=== PATIENT | female | born 1980 | race Caucasian/White ===

== ENCOUNTER 2017-12-16 15:19 | Emergency (ER) | payer OTHER, SELFPAY ==
[2017-12-16 15:48] VITALS: BP 130/76; PULSE 78; RESP 20; TEMP 36.9; O2SAT 100; BMI 29.9
--- NOTE | 2017-12-16 16:56 | HMH.EDUTC ---
[facility] [place] Dis[place] Clinical Impression: History of environmental allergies Contact dermatitis Qualifiers: Contact dermatitis type: allergic Contact dermatitis trigger: unspecified trigger Qualified Code(s): L23.9 - Allergic contact dermatitis, unspecified cause Disposition: Home, Self-Care Condition on Discharge: Good Instructions: DI for General Allergic Reactions, DI for Contact Dermatitis Additional Instructions: Zyrtec 10mg instead of allergra. If no improvement within 1-2 hours, can take a second one. Use first and if still no improvement, then use benadryl. Zyrtec offers for constant relief. REMEMBER you had 25mg benadryl injection in clinic Start steroids tomorrow since you were given injection of dexamethasone 8mg here in clinic. Cool compresses/cool shower helps w/ itching Prescriptions: predniSONE [Prednisone 10mg Tab Dose-Pack] 10 mg PO UD DOSE PK #1 pack Referrals: Nicola Lopez [Referring] - (return to ER/911 for any difficulty breathing or swallowing. Follow up with Dr. Lopez for new, worsening or reoccurring symptoms. If you can't get in to him or primary care, return to [facility].) Forms: Work/School Release Time of Disposition: 17:23 Medical Decision Making Vital Signs: 12/16/17 15:48 Temperature 98.5 F Temperature Source Temporal Artery Scan Pulse Rate [Right Brachial] 78 Respiratory Rate 20 Blood Pressure [Right Arm] 130/76 Blood Pressure Mean [Right Arm] 94 Blood Pressure Source [Right Arm] Automatic Cuff Blood Pressure Position [Right Arm] Sitting 02 Sat by Pulse Oximetry 100 Oxygen Delivery Method Room Air - Jeison Inquiry Pt receiving controlled substance: No [facility] [place] HPI - General Stated complaint: Rash Time Seen by Provider: 12/16/17 16:50 Mode of Arrival: Ambulatory Source of Information: Patient Limitations: No Limitations Description of Symptoms (Recalled from Triage Doc. 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 Hx of environmental allergies. Last saw art studio teacher randy/in the last 3 months. Xiomara Trevor daily helps. Reports she was NOT tested for food allergies at that time. As a child, hx of intermittent allergies to some fruits. Only new food she ate was meatballs. No hx of problems with meat in the past. Otherwise reports racking her brain and no new medications, contacts, toiletries, detergents, cosmetics, etc at home. Wonders if bathroom soap at work was new today because did smell different. 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 Denies difficulty breathing or swallowing. [place] lightheaded initially but not now. Longer she has waiting, more rash and more itchy. No treatment. hx of benadryl knocks me out so wanted to be sure spouse arrived to drive her home (he did while I was in room). - Related Data Previous Rx's Medication Instructions Recorded predniSONE [Prednisone 10mg Tab 10 mg PO UD DOSE PK #1 pack 12/16/17 Dose-Pack] Allergies Allergy/AdvReac Type Severity Reaction Status Date / Time Penicillins [PENICILLINS] Allergy Unknown Unverified 10/26/17 15:39 - Worker's Comp Is this a Worker's Comp case?: No [facility] History I have reviewed the patient's past medical history: Yes Medical History: Reports:: Diabetes Mellitus Type 2 Denies:: Asthma, Hypertension Other Surgeries: Yes: Other (PCOS) - *Social History Smoking Status: Never smoker Alcohol Intake: never - Psychiatric History Expresses thoughts of harming self/others: None Suicide Plan Description: No Plan ROS Obtained: Yes Systems reviewed as appropriate & no additional complaints - Co
--- NOTE | 2017-12-16 17:05 | ED_ITS ---
[facility] [place]ression: History of environmental allergies Contact dermatitis Qualifiers: Contact dermatitis type: allergic Contact dermatitis trigger: unspecified trigger Qualified Code(s): L23.9 - Allergic contact dermatitis, unspecified cause Disposition: Home, Self-Care Condition on Discharge: Good Instructions: DI for General Allergic Reactions, DI for Contact Dermatitis Additional Instructions: Zyrtec 10mg instead of allergra. If no improvement within 1-2 hours, can take a second one. Use first and if still no improvement, then use benadryl. Zyrtec offers for constant relief. REMEMBER you had 25mg benadryl injection in clinic Start steroids tomorrow since you were given injection of dexamethasone 8mg here in clinic. Cool compresses/cool shower helps w/ itching Prescriptions: predniSONE [Prednisone 10mg Tab Dose-Pack] 10 mg PO UD DOSE PK #1 pack Referrals: Nicola Lopez [Referring] - (return to ER/911 for any difficulty breathing or swallowing. Follow up with Dr. Lopez for new, worsening or reoccurring symptoms. If you can't get in to him or primary care, return to [facility] [[email or web address] Forms: Work/School Release Time of Disposition: 17:23 Medical Decision Making Vital Signs: 12/16/17 15:48 Temperature 98.5 F Temperature Source Temporal Artery Scan Pulse Rate [Right Brachial] 78 Respiratory Rate 20 Blood Pressure [Right Arm] 130/76 Blood Pressure Mean [Right Arm] 94 Blood Pressure Source [Right Arm] Automatic Cuff Blood Pressure Position [Right Arm] Sitting 02 Sat by Pulse Oximetry 100 Oxygen Delivery Method Room Air - Jeison Inquiry Pt receiving controlled substance: No [facility] [place] - General Stated complaint: Rash Time Seen by Provider: 12/16/17 16:50 Mode of Arrival: Ambulatory Source of Information: Patient Limitations: No Limitations Description of Symptoms (Recalled from Triage Doc. 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 Hx of environmental allergies. 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 Xiomara Trevor daily helps. Reports she was NOT tested for food allergies at that time. As a child, hx of intermittent allergies to some fruits. Only new food she ate was meatballs. No hx of problems with meat in the past. Otherwise reports racking her brain and no new medications, contacts, toiletries, detergents, cosmetics, etc at home. Wonders if bathroom soap at work was new today because did smell different. 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 Denies difficulty breathing or swallowing. [place] lightheaded initially but not now. Longer she has waiting, more rash and more itchy. No treatment. hx of benadryl knocks me out so wanted to be sure spouse arrived to drive her home (he did while I was in room). - Related Data Previous Rx's Medication Instructions Recorded predniSONE [Prednisone 10mg Tab 10 mg PO UD DOSE PK #1 pack 12/16/17 Dose-Pack] Allergies Allergy/AdvReac Type Severity Reaction Status Date / Time Penicillins [PENICILLINS] Allergy Unknown Unverified 10/26/17 1
[2017-12-16 17:27] VITALS: BP 127/71; PULSE 76; RESP 20; TEMP 37.1; O2SAT 100
== END 2017-12-16 17:28 | disposition home or self-care (01) ==
PROVIDERS: Emergency Provider Nurse Practitioner Family; PCP Internal Medicine Adolescent Medicine
DX: L23.9 Allergic contact dermatitis, unspecified cause (principal); E11.9 Type 2 diabetes mellitus without complications; Z91.09 Other allergy status, other than to drugs and biological substances
CPT/HCPCS: 96372; 99201

== ENCOUNTER → 2018-02-23 12:57 | Outpatient (CLI) | payer OTHER, SELFPAY ==
--- NOTE | 2018-02-23 12:58 | US_ITS ---
US transvaginal HISTORY: Dysfunctional uterine bleeding, heavy cycles, polycystic ovarian syndrome, endometriosis with fibroid ITS.REASON: DUB ORDERING PHYSICIAN: David George MD PATIENT AGE: 37 years COMPARISON: 10/21/2016 FINDINGS: The uterus is enlarged at 10 x 4.5 x 5.6 cm area combined endometrial thickness is 7 mm. There is a 1.2 x 1 7 m area of decreased echogenicity along the posterior aspect of the body the uterus and may be due to a small fibroid. The left ovary is 4.9 x 4.3 cm and contains a complex 2 cm cystic area with other smaller cysts noted. The right ovary is 4.6 x 3.3 cm again multiple small follicles. IMPRESSION: 1. Mildly enlarged uterus. No change posterior fibroid. 2. Mildly enlarged ovaries with 2 cm complex cyst of the left ovary and other bilateral ovarian follicles
== END ==
PROVIDERS: PCP Internal Medicine Adolescent Medicine; Referring Provider Obstetrics & Gynecology; Visit Provider Obstetrics & Gynecology
DX: N93.8 Other specified abnormal uterine and vaginal bleeding (principal)
CPT/HCPCS: 76830

== ENCOUNTER 2019-02-08 17:30 | Outpatient (RCR) | payer OTHER, SELFPAY ==
--- NOTE | 2019-01-17 18:03 | HMH.PTOPEV ---
PT Outpatient Evaluation Rehab PT Outpatient Evaluation Start: 01/17/19 17:50 Freq: Status: Active Protocol: Document 01/17/19 17:51 LILLIEOMER (Rec: 01/17/19 18:03 AYLA [id number]) Electronically Signed By Castro Cardenas, PT 01/17/19 17:51 Outpatient Therapy Subjective History Subjective History This is the initial Physical Therapy evaluation for Ana Reynolds. Pt is a 38 y/o female referred to PT for c/o thoracolumbar pain. Pt rpeorts pain began insidiously ~ 2 years ago, but is usually intermittent. Pt rpeorts this bout began ~ 2 weeks ago and has not eased up. Chief Complaint Pain Stiff Symptom Type Ache Throb Burning Symptoms Relieved By Activity Symptoms Aggravated By Sitting Prior Functional Limitations None Current Functional Limitations Sitting Recreation Activity Symptom Description Constant but Variable Level of pain today (0-10) 3 Pain scale - at its best (0-10) 0 Pain scale - at its worst (0-10) 5 Lumbopelvic Eval Posture Thoracic Spine Posture Standing Position Increased Kyphosis Lumbar Spine Posture Standing Position Flattened Assistive device Assistive Devices None / NA Palapation tenderness bilateral thoracic spinal tenderness Yes lumbar spinal tenderness Yes paraspinal tenderness Yes buttock tenderness No tenderness over symphysis pubis No Lumbar/Sacral Palpation Findings Tenderness Muscle Guarding Accessory Movement T-spine Vertebrae Accessory Movements Central P/A [place] that Elicit Symptoms T10 bilateral T11 bilateral T12 bilateral L3 bilateral L4 bilateral L5 bilateral Range of Motion Lumbar Spine ROM Reason Not Measured Within Functional Limits Special Tests Lumbar Spine Screen Negative Forward Bending Test- Standing Negative Left Negative Right Forward Bending Test- Sitting Negative Left Negative Right Sciatic Nerve Tension Test Negative Left Negative Right Unilateral Straight Leg Raise (Lasegue) Negative Left Test Negative Right Outpatient Therapy Assessment Impairment
== END 2019-02-08 17:35 | disposition home or self-care (01) ==
LOC: PT 17:30
PROVIDERS: Visit Provider Internal Medicine Adolescent Medicine
DX: M54.5 Low back pain (principal)
CPT/HCPCS: 97110; 97140; 97163

== ENCOUNTER → 2019-03-17 08:01 | Outpatient (CLI) | payer OTHER, SELFPAY ==
--- NOTE | 2019-03-17 08:03 | CT_ITS ---
CT abdomen pelvis wo con CLINICAL INDICATION: Right flank pain, hematuria ITS.REASON: RT FLANK PAIN, HEMATURIA ORDERING PHYSICIAN: Joaquin Arriaga MD PATIENT AGE: 38 years COMPARISON: None TECHNIQUE: Axial images obtained with sagittal and coronal reformats. All CT scans at the facility use one or more dose reduction, viz: automated exposure control, ma/kV adjustment per patient size (including targeted exams where dose is matched to indication, i.e. head), or iterative reconstruction technique. PROCEDURE: Oral Contrast: None IV Contrast: None . FINDINGS: Lower thorax: No acute finding . Calcified granuloma right lung base The liver, gallbladder, spleen, adrenal glands, pancreas, and kidneys have an unremarkable appearance. No ureteral or renal calculi. No hydronephrosis. Prior appendectomy. No intestinal obstruction or free air. There is mild pancreatic feces. No pelvic mass abnormal fluid collection or focal inflammatory change. Scattered colonic diverticula without diverticulitis. No acute bony findings. IMPRESSION: 1. No acute finding. 2. Mild amount of retained colonic feces 3. Colonic diverticulosis without diverticulitis
== END ==
PROVIDERS: PCP Internal Medicine Adolescent Medicine; Visit Provider Internal Medicine Adolescent Medicine
DX: R10.9 Unspecified abdominal pain (principal); R31.9 Hematuria, unspecified
CPT/HCPCS: 74176

== ENCOUNTER → 2019-08-29 17:25 | Outpatient (CLI) | payer OTHER, SELFPAY ==
--- NOTE | 2019-08-29 17:26 | MM_ITS ---
PROCEDURE: MM DIG SCREENING MAMM BI W/CAD CLINICAL INDICATION: Routine Screening Mammogram There is a history of breast cancer patient's maternal grandmother and maternal great grandmother. COMPARISON: DMDXUR DIG MAMM-DX UNI-RT from 09/04/2014 DMSB DIG MAMM-SCREEN STEPHANIE W/CAD from 07/26/2017 DMDXUAVL DIG MAMM-DX UNI A/VWS-LT W/CAD from 08/05/2017 TECHNIQUE: Standard CC and MLO images were obtained. R2 CAD reviewed. FINDINGS: Prominent somewhat heterogenic fibroglandular densities are seen in both breasts. Findings are most prominent upper outer quadrants. There is no new or suspicious lesion in either breast and no suspicious microcalcifications. IMPRESSION: Moderate breast density with no suspicious lesions seen BI-RAD Category: 1 Negative FOLLOW-UP: 1YR 1 Year Follow-up (A letter has been sent to the patient regarding results of the study.) Dictated by: Dr. Jefferson Luna MD 09/01/2019 15:[address] Jefferson Luna MD in [place] 09/01/2019 15:35
== END ==
PROVIDERS: PCP Internal Medicine Adolescent Medicine; Visit Provider Obstetrics & Gynecology
DX: Z12.31 Encounter for screening mammogram for malignant neoplasm of breast (principal)
CPT/HCPCS: 77067

== ENCOUNTER → 2020-02-09 15:46 | Outpatient (CLI) | payer OTHER, SELFPAY | PROVIDERS: Visit Provider Internal Medicine Adolescent Medicine | DX: J02.9 Acute pharyngitis, unspecified (principal) | CPT/HCPCS: 87070; 87077 ==

== ENCOUNTER 2020-02-21 11:06 | Emergency (ER) | payer OTHER, SELFPAY ==
[2020-02-21 11:07] VITALS: BP 157/83; PULSE 99; RESP 20; TEMP 37; O2SAT 99; BMI 30.9
--- NOTE | 2020-02-21 11:37 | HMH.EDUTC ---
[facility] [place] Clinical Impression: Chronic pharyngitis Disposition: Home, Self-Care Condition on Discharge: Good Instructions: Sore Throat, DI for Pharyngitis/Tonsillopharyngitis -- Adult Additional Instructions: Drink plenty of fluids. Take tylenol or ibuprofen for pain or fever. Take the medications as directed. Follow up with your regular doctor. GO TO THE ER FOR ANY WORSENING SYMPTOMS Prescriptions: methylPREDNISolone [Medrol] 4 mg PO DIRECTED 6 Days #21 tab.[email or web address] Transmission Status: Received by [email or web address] Cefdinir [Omnicef 300mg Capsule] 300 mg PO BID #20 cap Transmission Status: Received by [email or web address] Referrals: Joaquin Arriaga MD [Primary Care Provider] - Parminder Dorsey MD [Staff Physician] - Time of Disposition: 11:49 Medical Decision Making - Medical Records Medical records reviewed: No: I reviewed the patient's medical records. - Jeison Inquiry Pt receiving controlled substance: No Vital Signs: 02/21/20 11:07 02/21/20 11:50 Temperature 98.6 F 98.6 F Temperature Source Oral Pulse Rate 99 H Pulse Rate [Brachial] 99 H Respiratory Rate 20 20 Blood Pressure 157/83 H Blood Pressure [Right Arm] 157/83 H Blood Pressure Mean [Right Arm] 107 Blood Pressure Source [Right Arm] Automatic Cuff Blood Pressure Position [Right Arm] Supine 02 Sat by Pulse Oximetry 99 Oxygen Delivery Method Room Air - Lab Data Lab results reviewed: Yes: I reviewed the patient's lab results. Lab Results 02/21/20 11:16: Influenza Type A Ag Negative, Influenza Type B Ag Negative 02/21/20 11:16: Strep Scn Rapid Clinic Negative Orders (Tests/Meds): ORDERS Category Date Time Status Strep Screen Confirmation Stat Micro 02/21/20 11:16 Received [facility] [place] HPI - General Stated complaint: slight fever and sore throat Time Seen by Provider: 02/21/20 11:37 Mode of Arrival: Family Vehicle Source of Information: Patient Limitations: No Limitations HEENT Symptoms (Recalled from RN notes): No Resp Symptoms (Recalled from RN notes): Yes Skin Symptoms (Recalled from RN notes): No MS Symptoms (Recalled from RN notes): No Functional Status (Recalled from RN notes): n/a - History of Present Illness Provider Complaint: She c/o sore throat and feeling bad for the past 2 days. - Related Data Home Medications Medication Instructions Recorded Confirmed Benzonatate [Tessalon Perle 100mg 100 mg PO TID PRN 02/21/20 02/21/20 Cap*] Loratadine [Claritin] 5 mg PO BID 02/21/20 02/21/20 Metformin HCl [Metformin HCl ER] 750 mg PO DAILY 02/21/20 02/21/20 Previous Rx's Medication Instructions Recorded Cefdinir [Omnicef 300mg Capsule] 300 mg PO BID #20 cap 02/21/20 methylPREDNISolone [Medrol] 4 mg PO DIRECTED 6 Days #21 02/21/20 tab.ds.pk Allergies Allergy/AdvReac Type Severity Reaction Status Date / Time prednisone Allergy Intermediate Verified 11/13/19 11:33 Penicillins [PENICILLINS] Allergy Unknown Verified 11/13/19 11:33 - Worker's Comp Is this a Worker's Comp case?: No Is this an H Worker's Comp?: No Is this a [place] Worker's Comp?: No [facility] History - Hepatitis A Screen Drug use history?: No High risk sexual behaviors?: No History of sexually transmitted infection?: No Currently employed?: No Childcare worker?: No Do you have indoor plumbing?: No Do you have electricity?: No Attestation statement:: This patient has been screened for Hepatitis A risk factors. I have reviewed the patient's past medical history: Yes Medical History: Denies:: Asthma, Cancer, Diabetes Mellitus Type 1, Diabetes Mellitus Type 2, Hypertension, MRSA, Seizures Other Medical History: Denies: Blood Transfusion Reaction Other Surgeries: Yes: Appendectomy, Other Amputation: No Fractures: No Comment: D&C with Lap, 2002, LAP, WITH OVARIAN DRILLING WITH DYE,2014 - Social History Smoking Status: Former smoker #Yrs smoked (if former smoker): 2,007 Alcoho
[2020-02-21 11:47] LABS: UTC Influenza A Antigen Negative (Negative); UTC Influenza B Antigen Negative (Negative); UTC Strep Screen (Rapid) Negative (Negative)
[2020-02-21 11:50] VITALS: BP 157/83; PULSE 99; RESP 20; TEMP 37; O2SAT 99
== END 2020-02-21 11:55 | disposition home or self-care (01) ==
PROVIDERS: Emergency Provider Nurse Practitioner Family; PCP Internal Medicine Adolescent Medicine
DX: J31.2 Chronic pharyngitis (principal); Z87.891 Personal history of nicotine dependence
CPT/HCPCS: 87804; 87880; 99202

== ENCOUNTER → 2020-05-24 09:02 | Outpatient (CLI) | payer OTHER, SELFPAY ==
--- NOTE | 2020-05-24 09:13 | CT_ITS ---
PROCEDURE: CT ABDOMEN PELVIS W CON CLINICAL INDICATION: flank pain Right-sided flank pain [facility] abdomen pelvis wo con from 03/17/2019 TECHNIQUE: IV Contrast: 75ML OPTIRAY 350 Oral Contrast Axial images obtained with sagittal and coronal reformats. All CT scans at the facility use one or more dose reduction, viz: automated exposure control, ma/kV adjustment per patient size (including targeted exams where dose is matched to indication, i.e. head), or iterative reconstruction technique. FINDINGS: LOWER THORAX: Calcified granuloma is present in the right lung base. ABDOMEN & PELVIS: The liver, spleen, adrenal glands, pancreas, gallbladder, and kidneys have an unremarkable appearance. No renal or ureteral calculi. No hydronephrosis. Unremarkable appearing urinary bladder No intestinal obstruction or free air. There is given history of prior appendectomy. There is a mild amount of retained colonic feces. No evidence of no evidence of diverticulitis.. No acute bony findings. IMPRESSION: No acute finding. No renal or ureteral calculi. Dictated by: Demetrio Canales MD 05/25/2020 07:38 Electronically signed by Demetrio Canales MD in [place] 05/25/2020 07:38
[2020-05-24 09:22] LABS: Basophils # 0.1 K/mm3 (0-0.2); Basophils % 0.8 % (0.1-2.0); Eosinophils # 0.2 K/mm3 (0.0-0.4); Eosinophils % 2.2 % (0.1-12.0); Hematocrit 40.5 % (37.0-47.0); Hemoglobin 13.4 g/dL (12.2-16.2); Lymphocytes # 3.2 K/mm3 (0.7-4.5); Lymphocytes % 35.5 % (10-50); Mean Corpuscular HGB Conc 33.1 g/dL (31.8-35.4); Mean Corpuscular Hemoglobin 29.2 pg (27.0-31.2); Mean Corpuscular Volume 88.2 fl (81-99); Mean Platelet Volume 7.3 fl (7.4-10.4); Monocytes # 0.3 K/mm3 (0.1-1.0); Monocytes % 3.6 % (1.7-9.3); Neutrophils # 5.2 K/mm3 (1.8-7.8); Platelet Count 358 K/mm3 (142-424); Red Blood Count 4.59 M/mm3 (4.20-5.40)
[2020-05-24 09:23] LABS: Chloride 101 mmol/L (98-107)
[2020-05-24 09:24] LABS: Potassium 4.3 mmoL/L (3.5-5.1); Sodium 137 mmol/L (136-145)
[2020-05-24 09:26] LABS: Blood Urea Nitrogen 12 mg/dl (7-17); Estimated Glomerular Filt Rate 110 ml/min (>60); GFR (African American) 133 ML/MIN (>60)
[2020-05-24 09:27] LABS: Alanine Aminotransferase 39 U/L (12-78); Albumin/Globulin Ratio 1.4 (1.1-1.8); Alkaline Phosphatase 79 U/L (38-126); Anion Gap 13.3 mEq/L (5-15); Aspartate Amino Transferase 38 U/L (14-36); Bilirubin,Total 0.4 mg/dl (0.2-1.3); Calcium 9.1 mg/dl (8.4-10.2); Carbon Dioxide 27 mmol/L (22.0-30.0); Globulin 2.9 g/dL (1.3-3.2); Glucose 90 mg/dl (74-100); Total Protein,Serum 6.9 g/dl (6.3-8.2)
== END ==
PROVIDERS: Visit Provider Nurse Practitioner Family
DX: R10.9 Unspecified abdominal pain (principal)
CPT/HCPCS: 36415; 74177; 80053; 85025; Q9967

== ENCOUNTER → 2020-07-16 12:56 | Outpatient (CLI) | payer OTHER, SELFPAY | PROVIDERS: PCP Internal Medicine Adolescent Medicine; Referring Provider Internal Medicine Adolescent Medicine; Visit Provider Internal Medicine Adolescent Medicine | DX: Z20.828 Contact with and (suspected) exposure to other viral communicable diseases (principal) | CPT/HCPCS: U0003 ==

== ENCOUNTER 2020-08-29 08:58 | Emergency (ER) | payer OTHER, SELFPAY ==
[2020-08-29 09:09] VITALS: BP 125/85; PULSE 73; RESP 18; O2SAT 99; BMI 30.7
--- NOTE | 2020-08-29 09:22 | HMH.EDUTC ---
[facility] [place] Clinical Impression: Hand, foot and mouth disease Disposition: Home, Self-Care Condition on Discharge: Good Instructions: Hand, Foot, and Mouth Disease Additional Instructions: *Monitor Temp, Over the counter Motrin or Tylenol as directed/as needed Tylenol every 4 hours and Motrin every 6 hours (as long as your family doctor has told you that you can take it) for fever or pain. and straight to ER if unable to lower temp less than 101.0 after medication given *Warm salt water gargles may help to soothe the throat *Throat Lozenges *Warm fluids like tea with honey may help to soothe the throat Yogurt may help with the painful lesions in your mouth Oatmeal baths may help with itching and pain associated with rash Watch for worsening of rash Your throat swab was sent for culture. Those results are typically sent to your primary care. Be sure to follow up in 2-3 days with your family doctor/primary care physician if no improvement so they can review those result and treat if necessary. If you don?t have a primary care doctor, I recommend you get one but in the mean time, you will have to return to a walk in clinic Follow up IMMEDIATELY for new or worsening symptoms or no Noticeable improvement over the next 48-72 hours. 911 for difficulty breathing or swallowing Referrals: Aleks Sandy MD [Primary Care Provider] - As needed Forms: Work/School Release Time of Disposition: 09: Medical Decision Making - Jeison Inquiry Pt receiving controlled substance: No Jeison was queried for this patient: No Vital Signs: 08/29/20 09:09 08/29/20 09:34 Temperature 98.1 F Temperature Source Oral Pulse Rate 73 Pulse Rate [Radial] 73 Respiratory Rate 18 18 Blood Pressure 125/85 Blood Pressure [Right Arm] 125/85 Blood Pressure Mean [Right Arm] 98 Blood Pressure Source Automatic Cuff Blood Pressure Source [Right Arm] Automatic Cuff Blood Pressure Position Sitting Blood Pressure Position [Right Arm] Sitting 02 Sat by Pulse Oximetry 99 Oxygen Delivery Method Room Air Room Air - Lab Data Lab Results 08/29/20 09:36: Strep Scn Rapid Clinic Negative Orders (Tests/Meds): ORDERS Category Date Time Status Strep Screen Confirmation Stat Micro 08/29/20 09:36 Received [facility] [place] HPI - General Stated complaint: blisters in mouth Time Seen by Provider: 08/29/20 09:22 Mode of Arrival: Ambulatory Source of Information: Patient Limitations: No Limitations Description of Symptoms (Recalled from Triage Doc. 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 and have had a runny nose and cough but no strep - Related Data Home Medications Medication Instructions Recorded Confirmed norethindrone 1 mg-ethinyl 1 tab PO DAILY 05/09/20 05/09/20 estradiol 10 mcg (24)-iron 10 mcg(2) tablet Allergies Allergy/AdvReac Type Severity Reaction Status Date / Time prednisone Allergy Intermediate Verified 05/09/20 14:35 Penicillins [PENICILLINS] Allergy Unknown Verified 05/09/20 14:35 - Worker's Comp Is this a Worker's Comp case?: No [facility] History - Hepatitis A Screen Drug use history?: No High risk sexual behaviors?: No History of sexually transmitted infection?: No Currently employed?: No Childcare worker?: No Do you have indoor plumbing?: Yes Do you have electricity?: Yes Attestation statement:: This patient has been screened for Hepatitis A risk factors. I have reviewe
[2020-08-29 09:34] VITALS: BP 125/85; PULSE 73; RESP 18; TEMP 36.7; O2SAT 99
[2020-08-29 09:37] LABS: UTC Strep Screen (Rapid) Negative (Negative)
== END 2020-08-29 09:37 | disposition home or self-care (01) ==
PROVIDERS: Emergency Provider Nurse Practitioner; PCP Internal Medicine Adolescent Medicine
DX: B08.4 Enteroviral vesicular stomatitis with exanthem (principal); Z88.0 Allergy status to penicillin; Z87.891 Personal history of nicotine dependence
CPT/HCPCS: 87880; 99201

== ENCOUNTER → 2020-09-05 15:03 | Outpatient (CLI) | payer OTHER, SELFPAY ==
[2020-09-05 17:30] LABS: Coronavirus 19 IgG Antibody Negative (Negative); Coronavirus 19 IgM Antibody Negative (Negative)
== END ==
PROVIDERS: Visit Provider Internal Medicine Adolescent Medicine
DX: Z03.818 Encounter for observation for suspected exposure to other biological agents ruled out (principal)
CPT/HCPCS: 36415; 86328

== ENCOUNTER → 2020-09-22 13:38 | Outpatient (CLI) | payer OTHER, SELFPAY ==
--- NOTE | 2020-09-22 | XR_ITS ---
PROCEDURE: XR SHOULDER RT MIN 2V CLINICAL INDICATION: PT FELL COMPARISON: No exams were available for comparison FINDINGS: The clavicle is intact and the AC joint appears normal. There is a lateral downsloping acromion process resulting mild subacromial stenosis suggesting a predisposition to impingement syndrome. There are no soft tissue calcifications. IMPRESSION: Possible impingement syndrome, suggest clinical correlation, no acute fracture seen Dictated by: Dr. Jefferson Luna MD 09/22/2020 16:02 Dr. Jefferson Luna MD in 09/22/2020 16:02
--- NOTE | 2020-09-22 13:48 | XR_ITS ---
PROCEDURE: XR FOREARM RT 2V CLINICAL INDICATION: PT FELL August COMPARISON: No exams were available for comparison FINDINGS: No fracture or dislocation. No lytic or blastic change. There is normal mineralization. The joint spaces are well-preserved. No significant degenerative/arthritic changes. No erosive changes evident. Other findings:None. IMPRESSION: No acute findings. Dictated by: Dr. Jefferson Luna MD 09/22/2020 16:03 Dr. Jefferson Luna MD in [place] 09/22/2020 16:03
== END ==
PROVIDERS: PCP Internal Medicine Adolescent Medicine; Visit Provider Internal Medicine Adolescent Medicine
DX: M25.511 Pain in right shoulder (principal); M79.601 Pain in right arm
CPT/HCPCS: 73030; 73090

== ENCOUNTER 2021-01-24 18:51 | Emergency (ER) | payer OTHER, SELFPAY ==
[2021-01-24 19:15] VITALS: BP 119/82; PULSE 86; RESP 19; TEMP 37; O2SAT 99; BMI 32.5
[2021-01-24 19:20] VITALS: BP 166/83; PULSE 87; RESP 14; TEMP 37; O2SAT 97; BMI 32.5
--- NOTE | 2021-01-24 19:28 | HMH.EDUTC ---
[facility] [place] Disposition Clinical Impression: Vomiting and diarrhea Disposition: Home, Self-Care Condition on Discharge: Good Instructions: DI for Viral Gastroenteritis -- Adult Additional Instructions: Follow up with Dr Arriaga if pain persists to have gallbladder re-evaluated Takes meds as needed. Clear liquids and bland diet only. Prescriptions: Promethazine HCl 12.5 mg PO Q6HP PRN 10 Days #20 tab PRN Reason: Nausea And Vomiting Transmission Status: Received by [id number] Referrals: Joaquin Arriaga MD [Primary Care Provider] - Time of Disposition: 20:48 Medical Decision Making - Jeison Inquiry Pt receiving controlled substance: No Vital Signs: 01/24/21 19:15 01/24/21 19:20 Temperature 98.6 F 98.6 F Temperature Source Oral Oral Pulse Rate [Left] 86 87 Respiratory Rate 19 14 Blood Pressure [Left Arm] 119/82 166/83 H Blood Pressure Mean [Left Arm] 94 110 Blood Pressure Source [Left Arm] Automatic Cuff Automatic Cuff Blood Pressure Position [Left Arm] Sitting Sitting 02 Sat by Pulse Oximetry 99 97 Oxygen Delivery Method Room Air Room Air Orders (Tests/Meds): ED MEDICATIONS Generic Name Dose Route Start Last Admin Trade Name Freq PRN Reason Stop Dose Admin Sodium Chloride 1,000 mls @ 999 mls/hr 01/24/21 19:45 01/24/21 19:46 Sod Chlor 0.9% 1000ml Bag IV 01/24/21 20:45 999 mls/hr .Q1H1M JOAN Administration Discontinued Medications Generic Name Dose Route Start Last Admin Trade Name Freq PRN Reason Stop Dose Admin Ketorolac Tromethamine 30 mg 01/24/21 19:40 01/24/21 19:47 Ketorolac 30mg/Ml Vial IV 01/24/21 19:41 30 mg ONCE ONE Administration Promethazine HCl 25 mg 01/24/21 19:40 01/24/21 19:46 Promethazine Hcl 25mg/Ml 1ml Vial IV 01/24/21 19:41 25 mg ONCE ONE Administration Sodium Chloride 25 ml 01/24/21 19:40 01/24/21 19:46 Sodium Chloride 0.9% 25ml Bag IV 01/24/21 19:41 25 ml ONCE ONE Administration [facility] [place] HPI - General Stated complaint: fever,chills,R side&back V&D,YUNG Time Seen by Provider: 01/24/21 19:28 Mode of Arrival: Ambulatory Source of Information: Patient Limitations: No Limitations Description of Symptoms (Recalled from Triage Doc. by RN): P{t has N/V/D started last night she took a Zofran ODT and has resolved. - History of Present Illness Provider Complaint: Patient has had nausea, vomiting, diarrhea X 24 hours. Took Zofran and it helped very little. Kids had GI bug last week. She is having pain in her RUQ radiating thru to her back. H/O gallbladder sludge. No fever. Has not kept down liquids or solids today. Onset (ago): day(s) (1) Location: abdomen Relieving factors: none Exacerbating factors: none Associated symptoms: nausea/vomiting Treatments prior to arrival: none - Related Data Home Medications Medication Instructions Recorded Confirmed norethindrone 1 mg-ethinyl 1 tab PO DAILY 05/09/20 05/09/20 estradiol 10 mcg (24)-iron 10 mcg(2) tablet Previous Rx's Medication Instructions Recorded Promethazine HCl 12.5 mg PO Q6HP PRN 10 Days #20 tab 01/24/21 Allergies Allergy/AdvReac Type Severity Reaction Status Date / Time prednisone Allergy Intermediate Verified 05/09/20 14:35 Penicillins [PENICILLINS] Allergy Unknown Verified 05/09/20 14:35 [facility] History - Hepatitis A Screen Attestation statement:: This patient has been screened for Hepatitis A risk factors. I have reviewed the patient's past medical history: Yes Medical History: Denies:: Asthma, Cancer, Diabetes Mellitus Type 1, Diabetes Mellitus Type 2, Hypertension, MRSA, Seizures Other Medical History: Denies: Blood Transfusion Reaction Comment: pcos Other Surgeries: Yes: Appendectomy, Other Amputation: No Fractures: No Comment: D&C with Lap, 2002, LAP, WITH OVARIAN DRILLING WITH DYE,2014 - Social History Smoking Status: Former smoker #Yrs smoked (if former smoker): 2,007 Alcohol Intake: never Alcohol Intake Frequency
[2021-01-24 20:48] VITALS: BP 119/82; PULSE 86; RESP 19; TEMP 37; O2SAT 99
== END 2021-01-24 21:13 | disposition home or self-care (01) ==
LOC: ER 19:00 → UTC 19:18 → ER 19:18 → UTC 19:19
PROVIDERS: Emergency Provider Physician Assistant; PCP Internal Medicine Adolescent Medicine
DX: R10.11 Right upper quadrant pain (principal); Z88.0 Allergy status to penicillin; Z87.891 Personal history of nicotine dependence
CPT/HCPCS: 96365; 96375; 99202; G0463

== ENCOUNTER → 2021-03-24 07:10 | Outpatient (CLI) | payer OTHER, SELFPAY ==
[2021-03-24 08:21] LABS: Alanine Aminotransferase 16 U/L (12-78); Albumin Level 4.2 g/dl (3.5-5.0); Albumin/Globulin Ratio 1.5 (1.1-1.8); Alkaline Phosphatase 72 U/L (38-126); Anion Gap 10.9 mEq/L (5-15); Aspartate Amino Transferase 26 U/L (14-36); Bilirubin,Total 0.6 mg/dl (0.2-1.3); Blood Urea Nitrogen 14 mg/dl (7-17); Calcium 9.7 mg/dl (8.4-10.2); Carbon Dioxide 28 mmol/L (22.0-30.0); Chloride 104 mmol/L (98-107); Chol/HDL Ratio 3.8 (1-3.5); Cholesterol 198 mg/dl (140-200); Estimated Glomerular Filt Rate 92 ml/min (>60); GFR (African American) 111 ML/MIN (>60); Globulin 2.8 g/dL (1.3-3.2); Glucose 88 mg/dl (74-100); HDL Cholesterol 52 mg/dl (40-60); Potassium 4.9 mmoL/L (3.5-5.1); Sodium 138 mmol/L (136-145); Triglycerides 152 mg/dl (30-150); VLDL Cholesterol 30 mg/dL (0-40)
[2021-03-24 08:31] LABS: Direct LDL Cholesterol 128.88 mg/dL (100-129)
[2021-03-24 10:24] LABS: Hemoglobin A1C 5.3 % (4.0-6.0)
== END ==
PROVIDERS: Visit Provider Internal Medicine Adolescent Medicine
DX: Z00.00 Encounter for general adult medical examination without abnormal findings (principal); R73.9 Hyperglycemia, unspecified
CPT/HCPCS: 36415; 80053; 80061; 83036

== ENCOUNTER 2021-05-07 09:59 | Emergency (ER) | payer SELFPAY ==
[2021-05-07 10:20] VITALS: BP 125/54; PULSE 84; RESP 18; TEMP 36.9; O2SAT 97; BMI 33.3
[2021-05-07 10:42] LABS: UTC Strep Screen (Rapid) Positive (Negative)
[2021-05-07 10:49] VITALS: BP 125/54; PULSE 84; RESP 18; TEMP 36.9; O2SAT 97
--- NOTE | 2021-05-07 11:02 | HMH.EDUTC ---
[facility] [place] Dis[place] Clinical Impression: Strep throat Disposition: Home, Self-Care Condition on Discharge: Good Instructions: DI for Strep Throat, Strep Throat, Cefdinir Additional Instructions: *Monitor Temp, Over the counter Motrin or Tylenol as directed/as needed Tylenol every 4 hours and Motrin every 6 hours (as long as your family doctor has told you that you can take it) for fever or pain. and straight to ER if unable to lower temp less than 101.0 after medication given *Warm salt water gargles may help to soothe the throat *Throat Lozenges *Warm fluids like tea with honey may help to soothe the throat *Sleep elevated *Humidifier/Vaporizer *Flonase 2 sprays in each nostril daily but be aware that it may take 2-3 days before you notice improvement *If you did not take Penicillin shot or was unable to, start taking antibiotic immediately and make sure that you take it for the FULL length of time although you should start to feel better in 24-48 hours *change toothbrush and toothpaste 24-48 hours after starting to take antibiotics so you do not reinfect yourself Monitor Temp. Tylenol and/or Ibuprofen as needed. ER if fever is no less than 101 despite alternating Tylenol and Ibuprofen * Encourage fluids, water, Gatorade, powerade, pedialyte if infant/toddler/or child *Cold fluids, popsicles and ice cream may feel good on his throat Follow up IMMEDIATELY for new or worsening symptoms or no Noticeable improvement over the next 48-72 hours. 911 for difficulty breathing or swallowing Prescriptions: Cefdinir [Omnicef 300mg Capsule] 300 mg PO BID #20 cap Transmission Status: Pending to [facility] Benzonatate [Tessalon Perle 100mg Cap*] 100 mg PO TID PRN #15 cap PRN Reason: Cough Transmission Status: Pending to [facility] Referrals: Joaquin Arriaga MD [Primary Care Provider] - As needed Time of Disposition: 11:10 Medical Decision Making - Jeison Inquiry Pt receiving controlled substance: No Jeison was queried for this patient: No Vital Signs: 05/07/21 10:20 05/07/21 10:49 Temperature 98.5 F 98.5 F Temperature Source Oral Pulse Rate 84 Pulse Rate [Right Brachial] 84 Respiratory Rate 18 18 Blood Pressure 125/54 L Blood Pressure [Right Arm] 125/54 L Blood Pressure Mean [Right Arm] 77 Blood Pressure Source [Right Arm] Automatic Cuff Blood Pressure Position [Right Arm] Sitting 02 Sat by Pulse Oximetry 97 Oxygen Delivery Method Room Air - Lab Data Lab results reviewed: Yes: I reviewed the patient's lab results. Lab Results 05/07/21 10:41: Strep Scn Rapid Clinic Positive A Medical Decision Narrative: Patient states that she has taken Cefdinir in the past without reaction or complications [facility] [place] HPI - General Stated complaint: sore throat, headache, cough Time Seen by Provider: 05/07/21 11:02 Mode of Arrival: Ambulatory Source of Information: Patient Limitations: No Limitations Description of Symptoms (Recalled from Triage Doc. by RN): PATIENT C/O SORE THROAT, EAR ACHE, HEADACHE, RUNNY NOSE, AND COUGH X 2 DAYS HEENT Symptoms (Recalled from RN notes): Yes Resp Symptoms (Recalled from RN notes): Yes Skin Symptoms (Recalled from RN notes): No MS Symptoms (Recalled from RN notes): No Functional Status (Recalled from RN notes): WNL - History of Present Illness Provider Complaint: Patient states that she has been having sore throat, cough, runny nose and pain in her left ear State that she started feeling bad and has got worse over the last 2-3 days States that today she was feeling achy so she came in to get checked - Related Data Home Medications Medication Instructions Recorded Confirmed norethindrone 1 mg-ethinyl 1 tab PO DAILY 05/09/20 05/09/20 estradiol 10 mcg (24)-iron 10 mcg(2) tablet Metformin HCl [Metformin HCl ER] 500 mg PO HS 05/07/21 05/07/21 Previous Rx's Medication Instructions Recorded Benzonatate [Tessalon Perle 100mg 100 mg PO TID
== END 2021-05-07 11:15 | disposition home or self-care (01) ==
LOC: ER 10:01 → UTC 10:06
PROVIDERS: Emergency Provider Nurse Practitioner; PCP Internal Medicine Adolescent Medicine
DX: J02.0 Streptococcal pharyngitis (principal)
CPT/HCPCS: 87880; 99202; G0463

== ENCOUNTER → 2021-07-24 08:35 | Outpatient (CLI) | payer OTHER, SELFPAY ==
--- NOTE | 2021-07-24 08:40 | MM_ITS ---
PROCEDURE: MM DIG SCREENING MAMM BI W/CAD Digital Breast Tomosynthesis Included CLINICAL INDICATION: SCREENING COMPARISON: MG DMSB DIG MAMM-SCREEN STEPHANIE W/CAD from 07/26/2017 MG DMDXUAVL DIG MAMM-DX UNI A/VWS-LT W/CAD from 08/05/2017 MG MM DIG SCREENING MAMM BI W/CAD from 08/29/2019 TECHNIQUE: Standard CC and MLO images and 3D Tomosynthesis was obtained. R2 CAD reviewed. FINDINGS: The breasts are heterogeneously dense which may obscure small masses.. No suspicious appearing mass, malignant-appearing microcalcification, architectural distortion, or skin thickening.. There are bilateral benign-appearing calcifications. No change with no evidence of malignancy. IMPRESSION: Benign findings. No significant change BI-RAD Category: 2 Benign Finding FOLLOW-UP: 1 YR 1 Year Follow-up (A letter has been sent to the patient regarding results of the study.) Dictated by: Demetrio Canales MD 08/11/2021 08:57 Demetrio Canales MD in [place] 08/11/2021 08:57
--- NOTE | 2021-07-24 08:40 | US_ITS ---
PROCEDURE: US ABDOMEN LIMITED CLINICAL INDICATION: RUQ PAIN COMPARISON: US RUQ US RUQ-(ABD LTD)1ORGAN/QUAD/FU from 09/16/[address] ABDOMEN PELVIS W CON from 05/24/2020 FINDINGS: PANCREAS: Unremarkable. No obvious mass or abnormal fluid collection. No ductal dilatation LIVER: Diffuse increased echogenicity of the liver with poor through transmission of sound consistent with hepatic steatosis. No focal liver lesion demonstrated. There is appropriate direction of blood flow within non dilated portal vein. RIGHT KIDNEY: Unremarkable. Normal size and echogenicity. No hydronephrosis GALLBLADDER: No gallstones apparent. No gallbladder wall thickening pericholecystic fluid or biliary dilatation. May be a tiny gallbladder polyp at 2 mm along the lateral aspect of the gallbladder wall. Common bile duct is normal at 5 mm. IMPRESSION: No gallstones apparent. Possible small gallbladder polyp Dictated by: Demetrio Canales MD 07/24/2021 16:13 Demetrio Canales MD in [place] 07/24/2021 16:13
== END ==
PROVIDERS: PCP Internal Medicine Adolescent Medicine; Visit Provider Nurse Practitioner Family
DX: Z12.31 Encounter for screening mammogram for malignant neoplasm of breast (principal); R10.11 Right upper quadrant pain
CPT/HCPCS: 76705; 77063; 77067

== ENCOUNTER → 2021-09-04 06:54 | Outpatient (CLI) | payer OTHER, SELFPAY ==
--- NOTE | 2021-09-04 06:55 | NM_ITS ---
PROCEDURE: NM HEPATOBILIARY W PHARM CLINICAL INDICATION: RUQ COMPARISON: US US ABDOMEN LIMITED from 07/24/2021 FINDINGS: Normal accumulation of radiotracer within the liver. There is rapid excretion by the liver into the biliary tree starting at 5 minutes. However, no radiotracer is seen within the small bowel or duodenum even at 55 minutes. Delayed appearance (greater than 60 minutes) of activity in the duodenum and small bowel is nonspecific and can occur in 20 percent to 25 percent of normal people. Partial obstruction can be caused by common duct stone, benign or malignant stricture, or sphincter of Oddi dysfunction with elevated sphincter pressure, although this could also be iatrogenic in the case of morphine administration. By the time of the administration of cholecystokinin, however, radiotracer is seen in the small bowel. After administration of cholecystokinin, gallbladder ejection fraction is 72 percent which is normal. IMPRESSION: 1. No evidence of cholecystitis. 2. Significantly delayed appearance of radiotracer in the duodenum/small bowel, which is nonspecific and can be a normal finding (20-25 percent of normal people), or represent partial obstruction by a common duct stone, benign or malignant stricture, or sphincter of Oddi dysfunction with elevated sphincter pressure, as well as iatrogenic in the case of morphine administration. 3. Normal gallbladder ejection fraction. Dictated by: Annie Cat MD 09/04/2021 14:43 Annie Cat MD in [place] 09/04/2021 14:43
== END ==
PROVIDERS: PCP Internal Medicine Adolescent Medicine; Visit Provider Surgery
DX: K82.9 Disease of gallbladder, unspecified (principal)
CPT/HCPCS: 78227; A9537

== ENCOUNTER → 2021-11-13 09:23 | Outpatient (CLI) | payer OTHER, SELFPAY ==
[2021-11-13 09:41] LABS: Basophils # 0.1 K/mm3 (0-0.2); Basophils % 1.1 % (0.1-2.0); Eosinophils # 0.2 K/mm3 (0.0-0.4); Eosinophils % 2.5 % (0.1-12.0); Hematocrit 44.4 % (37.0-47.0); Hemoglobin 14.2 g/dL (12.2-16.2); Lymphocytes # 3.1 K/mm3 (0.7-4.5); Lymphocytes % 32.1 % (10-50); Mean Corpuscular Hemoglobin 28.9 pg (27.0-31.2); Mean Corpuscular Volume 90.4 fl (81-99); Mean Platelet Volume 7.8 fl (7.4-10.4); Monocytes # 0.3 K/mm3 (0.1-1.0); Monocytes % 3.5 % (1.7-9.3); Neutrophils # 5.9 K/mm3 (1.8-7.8); Neutrophils % 60.8 % (37.0-80.0); Platelet Count 429 K/mm3 (142-424); Red Blood Count 4.91 M/mm3 (4.20-5.40); Red Cell Distribution Width 13.4 % (11.5-17.5); White Blood Count 9.6 K/mm3 (4.8-10.8)
--- NOTE | 2021-11-13 10:04 | MR_ITS ---
FINAL REPORT CLINICAL HISTORY: .RUQ ABD PAIN FINDINGS: Multiplanar MR imaging of the abdomen was performed using the MRCP protocol. 3-D images were also obtained and reviewed.There is no evidence of biliary ductal dilatation. No filling defect is seen within the biliary system to suggest a bile duct stone. No stricture is identified. No abnormality is identified of the gallbladder. The pancreatic duct is only partially visualized secondary to its normal small caliber. Review of the remainder of the abdomen reveals no evidence of mass or adenopathy. No abnormal fluid collection is seen. IMPRESSION: Unremarkable biliary system without evidence of bile duct stone or stricture. No mass or abnormal fluid collection. Reviewed, Interpreted and Dictated by Sony Bravo MD Transcribed by Renato Martinez Authenticated by Sony Bravo MD on 11/13/2021 12:59:07 PM [facility]
[2021-11-13 11:01] LABS: Alanine Aminotransferase 38 U/L (12-78); Albumin Level 4.6 g/dl (3.5-5.0); Albumin/Globulin Ratio 1.8 (1.1-1.8); Alkaline Phosphatase 72 U/L (38-126); Amylase 38 U/L (30-110); Anion Gap 9.7 mEq/L (5-15); Aspartate Amino Transferase 40 U/L (14-36); Bilirubin,Total 0.6 mg/dl (0.2-1.3); Blood Urea Nitrogen 13 mg/dl (7-17); Calcium 9.8 mg/dl (8.4-10.2); Carbon Dioxide 31 mmol/L (22.0-30.0); Chloride 101 mmol/L (98-107); Estimated Glomerular Filt Rate 109 ml/min (>60); GFR (African American) 132 ML/MIN (>60); Globulin 2.6 g/dL (1.3-3.2); Glucose 89 mg/dl (74-100); Lipase 69 U/L (23-300); Potassium 4.7 mmoL/L (3.5-5.1); Sodium 137 mmol/L (136-145); Total Protein,Serum 7.2 g/dl (6.3-8.2)
== END ==
PROVIDERS: PCP Internal Medicine Adolescent Medicine; Visit Provider Nurse Practitioner Family
DX: R10.11 Right upper quadrant pain (principal); R94.8 Abnormal results of function studies of other organs and systems
CPT/HCPCS: 36415; 74181; 76376; 80053; 82150; 83690; 85025

== ENCOUNTER 2022-05-05 23:02 | Inpatient (IN) | payer OTHER, SELFPAY ==
[2022-05-05 23:04] VITALS: BP 167/93; PULSE 91; RESP 16; TEMP 36.9; O2SAT 96; BMI 32.8
[2022-05-05 23:11] VITALS: BMI 32.8
[2022-05-05 23:23] LABS: Basophils % 0.2 % (0.1-2.0); Eosinophils # 0.1 K/mm3 (0.0-0.4); Eosinophils % 0.5 % (0.1-12.0); Hematocrit 48.4 % (37.0-47.0); Hemoglobin 16.2 g/dL (12.2-16.2); Lymphocytes # 1.2 K/mm3 (0.7-4.5); Lymphocytes % 8.2 % (10-50); Mean Corpuscular HGB Conc 33.5 g/dL (31.8-35.4); Mean Corpuscular Hemoglobin 28.4 pg (27.0-31.2); Mean Corpuscular Volume 84.6 fl (81-99); Mean Platelet Volume 7.5 fl (7.4-10.4); Monocytes # 0.3 K/mm3 (0.1-1.0); Monocytes % 2.3 % (1.7-9.3); Neutrophils # 12.6 K/mm3 (1.8-7.8); Neutrophils % 88.8 % (37.0-80.0); Platelet Count 399 K/mm3 (142-424); Red Blood Count 5.72 M/mm3 (4.20-5.40); Red Cell Distribution Width 12.8 % (11.5-17.5); White Blood Count 14.2 K/mm3 (4.8-10.8)
--- NOTE | 2022-05-05 23:24 | PC.NURSE ---
pt medicated per MAR, side rails in place, call light within reach, pt given warm blankets and at bedside
[2022-05-05 23:26] LABS: MANUAL DIFFERENTIAL MANUAL DIFFERENTIAL (MANUAL DIFF)
[2022-05-05 23:32] LABS: Alanine Aminotransferase 157 U/L (12-78); Albumin Level 4.6 g/dl (3.5-5.0); Albumin/Globulin Ratio 1.3 (1.1-1.8); Alkaline Phosphatase 110 U/L (38-126); Anion Gap 16.3 mEq/L (5-15); Aspartate Amino Transferase 211 U/L (14-36); Bilirubin,Total 1.3 mg/dl (0.2-1.3); Blood Urea Nitrogen 14 mg/dl (7-17); Calcium 9.9 mg/dl (8.4-10.2); Carbon Dioxide 24 mmol/L (22.0-30.0); Chloride 101 mmol/L (98-107); Creatinine Clearance Estimated 169 mL/min (50-200); Estimated Glomerular Filt Rate 109 ml/min (>60); GFR (African American) 131 ML/MIN (>60); Globulin 3.5 g/dL (1.3-3.2); Glucose 155 mg/dl (74-100); Potassium 4.3 mmoL/L (3.5-5.1); Sodium 137 mmol/L (136-145); Total Protein,Serum 8.1 g/dl (6.3-8.2)
[2022-05-05 23:39] LABS: Amylase 1749 U/L (30-110)
[2022-05-06] VITALS (8 sets, daily range): BP systolic 116–141; BP diastolic 68–89; PULSE 73–101; RESP 16–18; TEMP 36.9–37.9; O2SAT 94–98; BMI 33.5
--- NOTE | 2022-05-06 00:01 | PC.NURSE ---
Rounded on pt advised pain had eased up. Medicated oer MAR. Pt resting with at bedside. No other needs
--- NOTE | 2022-05-06 00:20 | HMH.EDGENADL ---
ED Disposition Clinical Impression: Pancreatitis, acute Qualifiers: Pancreatitis type: unspecified pancreatitis type Acute pancreatitis complication: no infection or necrosis Qualified Code(s): K85.90 - Acute pancreatitis without necrosis or infection, unspecified Disposition: Admitted as Observation Condition on Discharge: Fair Referrals: Joaquin Arriaga MD [Primary Care Provider] - - Critical Care Critical Care Time: No Attestation: On 05/05/22, the high probability of a clinically significant, sudden or life threatening deterioration of the following system(s) required my full and direct attention, intervention and personal management. The time I documented below is in addition to time spent performing reported procedures but includes the following listed in this critical care notation. Medical Decision Making - Medical Records Medical records reviewed: Yes: I reviewed the patient's medical records. - Jeison Inquiry Pt receiving controlled substance: No Vital Signs: 05/05/22 23:04 05/06/22 00:01 Temperature 98.4 F Temperature Source Oral Pulse Rate 78 Pulse Rate [Right] 91 H Respiratory Rate 16 16 Blood Pressure 126/89 Blood Pressure [Right Arm] 167/93 H Blood Pressure Mean [Right Arm] 117 Blood Pressure Source Automatic Cuff Blood Pressure Source [Right Arm] Automatic Cuff Blood Pressure Position Sitting Blood Pressure Position [Right Arm] Sitting 02 Sat by Pulse Oximetry 96 98 Oxygen Delivery Method Room Air Room Air - Lab Data Lab results reviewed: Yes: I reviewed the patient's lab results. Lab Results 05/05/22 23:15: WBC 14.2 H, RBC 5.72 H, Hgb 16.2, Hct 48.4 H, MCV 84.6, MCH 28.4, MCHC 33.5, RDW 12.8, Plt Count 399, MPV 7.5, Neut % (Auto) 88.8 H, Lymph % (Auto) 8.2 L, Elliott % (Auto) 2.3, Eos % (Auto) 0.5, Baso % (Auto) 0.2, Neut # (Auto) 12.6 H, Lymph # (Auto) 1.2, Elliott # (Auto) 0.3, Eos # (Auto) 0.1, Baso # (Auto) 0.0, Total Counted 100, Neutrophils % (Manual) 90 H, Lymphocytes % (Manual) 9 L, Monocytes % (Manual) 1 L, Platelet Estimate Normal, RBC Morphology Normal 05/05/22 23:15: Sodium 137, Potassium 4.3, Chloride 101, Carbon Dioxide 24, Anion Gap 16.3 H, BUN 14, Creatinine 0.60, Estimated Creat Clear 169, Estimated GFR 109, Est GFR ( Amer) 131, Glucose 155 H, Calcium 9.9, Total Bilirubin 1.3, AST 211 H, ALT 157 H, Alkaline Phosphatase 110, Total Protein 8.1, Albumin 4.6, Globulin 3.5 H, Albumin/Globulin Ratio 1.3, Amylase 1749 H*, Lipase 80576 H Result diagrams: 05/05/22 23:15 05/05/22 23:15 Orders (Tests/Meds): ED MEDICATIONS Generic Name Dose Route Start Last Admin Trade Name Freq PRN Reason Stop Dose Admin Sodium Chloride 1,000 mls @ 999 mls/hr 05/05/22 23:15 05/05/22 23:15 Sod Chlor 0.9% 1000ml Bag IV 05/06/22 00:15 999 mls/hr .Q1H1M JOAN Administration Sodium Chloride 1,000 mls @ 999 mls/hr 05/06/22 01:00 05/06/22 01:32 Sod Chlor 0.9% 1000ml Bag IV 05/06/22 02:00 999 mls/hr .Q1H1M JOAN Administration Sodium Chloride 8 ml 05/06/22 00:35 Sodium Chloride 0.9% 10ml Vial IV 06/05/22 00:34 NEEDED PRN dilute pepcid Discontinued Medications Generic Name Dose Route Start Last Admin Trade Name Freq PRN Reason Stop Dose Admin Famotidine 20 mg 05/06/22 00:35 05/06/22 00:41 Famotidine 20mg/2ml Vial IV 05/06/22 00:36 20 mg ONCE ONE Administration Hydromorphone HCl 1 mg 05/05/22 23:54 05/06/22 00:03 Hydromorphone 2mg/Ml Syringe IV 05/05/22 23:55 1 mg ONCE ONE Administration Metoclopramide HCl 10 mg 05/06/22 00:35 05/06/22 00:41 Metoclopramide Hcl 10mg/2ml Vial IVP 05/06/22 00:36 10 mg ONCE ONE Administration Morphine Sulfate 4 mg 05/05/22 23:12 05/05/22 23:15 Morphine 4mg/Ml Syringe IV 05/05/22 23:13 4 mg ONCE ONE Administration Ondansetron HCl 4 mg 05/05/22 23:12 05/05/22 23:14 Ondansetron 4mg/2ml Vial IV 05/05/22 23:13 4 mg ONCE ONE Administration Medical [facility]
[2022-05-06 00:25] LABS: Lymphocytes % 9 % (10-50); Monocytes % 1 % (2-9); Neutrophils % 90 % (42-76); Platelet Estimate Normal; RBC Morphology Normal; Total Cells Counted 100
--- NOTE | 2022-05-06 01:36 | PC.NURSE ---
rounded on pt at this time. Pt advises she is still having some pain. Notified MD. Decision to admit pt made at this time. Updated pt on POC. She and her were agreeable. No other needs
[2022-05-06 01:43] LABS: Coronavirus 19, PCR Not Detected (NotDetected); Influenza A, PCR Not Detected (NotDetected); Influenza B, PCR Not Detected (NotDetected)
--- NOTE | 2022-05-06 02:24 | PC.NURSE ---
called report to Eliane RODRIGUEZ
--- NOTE | 2022-05-06 02:36 | PC.NURSE ---
PT ARRIVED TO FLOOR VIA W/C FROM ED W/STAFF @ 0401
--- NOTE | 2022-05-06 04:48 | PC.NURSE ---
Pt has c/o epigastric pain since arrival to the floor. MD notified. New orders received to increase dilaudid 1 mg IV to Q2 hr. Give one dose of Morphine 4mg IV. Pt is currently resting at this time. NS currently infusing @ 125 ml/hr. Pt has voided x1. No other concerns.
--- NOTE | 2022-05-06 07:41 | HMH.PHAINT ---
home medication list verified using list from [facility]
--- NOTE | 2022-05-06 07:41 | HMH.PHAVTE ---
[facility] Pharmacy VTE Monitoring - Patient Demographics Admission date: 05/06/22 Report Date: 05/06/22 Time: 07:42 Allergies/Adverse Reactions: Patient Allergies prednisone Allergy (Intermediate, Verified 05/05/22 23:24) Penicillins [PENICILLINS] Allergy (Unknown, Verified 05/05/22 23:24) Height: 1.65 m Weight: 91.217 kg Patient Problems: Current Active Problems Pancreatitis, acute (Acute) - VTE Risk Labs: VTE Related Lab Results Hgb 16.2 g/dL (12.2-16.2) 05/05/22 23:15 Hct 48.4 % (37.0-47.0) H 05/05/22 23:15 Plt Count 399 K/mm3 (142-424) 05/05/22 23:15 BUN 14 mg/dl (7-17) 05/05/22 23:15 Creatinine 0.60 mg/dl (0.52-1.04) 05/05/22 23:15 Estimated Creat Clear 169 mL/min (50-200) 05/05/22 23:15 VTE Risk Level: Low Risk Clinical Trial Participant: No - Prophylaxis VTE Prophylaxis Ordered?: Yes Types of VTE Prophylaxis: TEDS Knee High
[2022-05-06 07:51] LABS: Chloride 105 mmol/L (98-107); Potassium 4.2 mmoL/L (3.5-5.1); Sodium 137 mmol/L (136-145)
[2022-05-06 07:52] LABS: Basophils % 0.2 % (0.1-2.0); Eosinophils % 0.1 % (0.1-12.0); Lymphocytes # 1.1 K/mm3 (0.7-4.5); Lymphocytes % 8.2 % (10-50); Mean Corpuscular HGB Conc 33.7 g/dL (31.8-35.4); Mean Corpuscular Hemoglobin 29.2 pg (27.0-31.2); Mean Corpuscular Volume 86.6 fl (81-99); Mean Platelet Volume 7.6 fl (7.4-10.4); Monocytes # 0.6 K/mm3 (0.1-1.0); Monocytes % 4.5 % (1.7-9.3); Neutrophils % 86.9 % (37.0-80.0); Platelet Count 388 K/mm3 (142-424); Red Blood Count 4.85 M/mm3 (4.20-5.40); White Blood Count 13.8 K/mm3 (4.8-10.8)
[2022-05-06 07:54] LABS: Blood Urea Nitrogen 13 mg/dl (7-17); Creatinine Clearance Estimated 172 mL/min (50-200); Estimated Glomerular Filt Rate 109 ml/min (>60); GFR (African American) 131 ML/MIN (>60)
[2022-05-06 07:55] LABS: Anion Gap 10.2 mEq/L (5-15); Calcium 8.7 mg/dl (8.4-10.2); Carbon Dioxide 26 mmol/L (22.0-30.0); Glucose 128 mg/dl (74-100); Hemoglobin 14.3 g/dL (12.2-16.2)
--- NOTE | 2022-05-06 08:35 | HMH.HP ---
*Admission Date: 05/06/22 *Chief complaint: Abdominal pain *History of present illness: 42-year-old white female with history of recurrent abdominal pain and noncalculus cholecystitis who underwent ERCP with sphincter of Oddi dilatation and stent placement yesterday per Dr. Guerrero in [place]. She initially had no complications but later yesterday evening on the ride home began to get intense abdominal pain in the upper epigastric area and the pain became so intense she came to the emergency department here where she was found to have severe elevations of lipase and amylase without elevations of bilirubin was diagnosed with postprocedural pancreatitis and was admitted for pain control. [facility] History I have reviewed the patient's past medical history: Yes Medical History: Reports:: Diabetes Mellitus Type 2 Denies:: Asthma, Cancer, Diabetes Mellitus Type 1, Hypertension, MRSA, Seizures *Have you ever received a pneumonia vaccine?: Yes *Have you received a flu vaccine this season?: Yes Other Medical History: Denies: Blood Transfusion Reaction Other Surgeries: Yes: Appendectomy, Other Amputation: No Fractures: No - *Social History Smoking Status: Former smoker Tobacco Type: cigarettes #Yrs smoked (if former smoker): 2,007 Alcohol Intake: current Alcohol Intake Frequency:: holidays/special occasions only Substance Use Type: denies use *Occupational Status:: unemployed Housing: house Household Members: spouse, children *Travel in the last 8 weeks: None Family Hx:: Asthma, Cancer, Diabetes, Heart Attack, Hyperlipidemia, Hypertension 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: Abnormal Uterine Bleeding, Polycystic Ovary Syndrome, Endometriosis, Uterine Fibroids Review of Systems - Review of Systems Review of systems:: pertinent systems reviewed and negative unless documented below - *Neurologic Denies seizure-like activity Meds Home Medications Medication Instructions Recorded Confirmed Type Metformin HCl [Metformin HCl ER] 500 mg PO HS 05/07/21 05/06/22 History Buspirone HCl [Buspar 10mg 10 mg PO BID 05/06/22 05/06/22 History tablet] Cetirizine HCl 10 mg PO DAILY 05/06/22 05/06/22 History Fluticasone Propionate [Flonase 1 spray NS BID 05/06/22 05/06/22 History Allergy Relief NS] Allergies Allergy/AdvReac Type Severity Reaction Status Date / Time prednisone Allergy Intermediate Verified 05/05/22 23:24 Penicillins [PENICILLINS] Allergy Unknown Verified 05/05/22 23:24 Exam Vital signs and Labs for Last 24 Hours: Temp Pulse Resp BP Pulse Ox 98.7 F 76 16 128/68 94 L 05/06/22 02:55 05/06/22 02:55 05/06/22 02:55 05/06/22 02:55 05/06/22 02:55 Laboratory Results - last 24 hr 05/05/22 23:15: WBC 14.2 H, RBC 5.72 H, Hgb 16.2, Hct 48.4 H, MCV 84.6, MCH 28.4, MCHC 33.5, RDW 12.8, Plt Count 399, MPV 7.5, Neut % (Auto) 88.8 H, Lymph % (Auto) 8.2 L, Mcdowell % (Auto) 2.3, Eos % (Auto) 0.5, Baso % (Auto) 0.2, Neut # (Auto) 12.6 H, Lymph # (Auto) 1.2, Mcdowell # (Auto) 0.3, Eos # (Auto) 0.1, Baso # (Auto) 0.0, Total Counted 100, Neutrophils % (Manual) 90 H, Lymphocytes % (Manual) 9 L, Monocytes % (Manual) 1 L, Platelet Estimate Normal, RBC Morphology Normal 05/05/22 23:15: Sodium 137, Potassium 4.3, Chloride 101, Carbon Dioxide 24, Anion Gap 16.3 H, BUN 14, Creatinine 0.60, Estimated Creat Clear 169, Estimated GFR 109, Est GFR ( Amer) 131, Glucose 155 H, Calcium 9.9, Total Bilirubin 1.3, AST 211 H, ALT 157 H, Alkaline Phosphatase 110, Total Protein 8.1, Albumin 4.6, Globulin 3.5 H, Albumin/Globulin Ratio 1.3, Amylase 1749 H*, Lipase 68782 H 05/06/22 01:40: SARS-CoV-2 (PCR) Not detected, Influenza A Untype (PCR) Not detected, Influenza Type B (PCR) Not detected 05/06/22 06:55: WBC 13.8 H, RBC 4.85, Hgb 14.3 D, Hct 42.0, MCV 86.6, MCH 29.2, MCHC 33.7, RDW 13.0, Plt Count 388, MPV 7.6, Neut % (Auto) 86.9 H, Lymph % (Auto) 8.2 L, Mcdowell % (Auto) 4.5, Eos % (Auto) 0.1, Baso % (Auto) 0.2, Neut # (Auto) 12.0 H, Lymph # (Auto) 1.1, Mcdowell # (Auto) 0.6, E
[2022-05-06 08:49] LABS: Lipase 17316 U/L (23-300)
--- NOTE | 2022-05-06 09:01 | CT_ITS ---
FINAL REPORT TECHNIQUE: Axial CT images of the abdomen and pelvis were obtained before and after the administration of IV contrast. Oral contrast was administered.This study was performed with techniques to keep radiation doses as low as reasonably achievable (ALARA). Individualized dose reduction techniques using automated exposure control or adjustment of mA and/or kV according to the patient''s size were employed. CLINICAL HISTORY: pancreatitis, post ERCP COMPARISON: 05/24/2020 FINDINGS: Abdomen: There is bibasilar atelectasis. The heart is normal in size. There is fatty infiltration of the liver. There is contrast in the gallbladder and several air bubbles. The spleen is unremarkable. No adrenal masses present. There is stranding and fluid adjacent to the pancreas consistent with acute pancreatitis. Fluid is seen in the anterior para renal space. There is no evidence of pancreatic necrosis. There is no pseudocyst or abscess. The kidneys enhance normally. The aorta is normal in caliber. There is no free fluid or adenopathy. No mass or abnormal fluid collection is seen. Precontrast images demonstrate no evidence of nephrolithiasis. Pelvis: The appendix is not well visualized. The urinary bladder is unremarkable. No inflammatory process is seen. There is a small to moderate amount of free fluid. There is no evidence of mass or adenopathy. There is no evidence of bowel obstruction. IMPRESSION: Acute pancreatitis. Pelvic free fluid, likely reactive. Reviewed, Interpreted and Dictated by Rico Thompson III, MD Transcribed by Mary Moore Authenticated and [facility]
--- NOTE | 2022-05-06 10:51 | PC.NURSE ---
rounded on patient. extensive teaching with patient and about pancreatitis and treatment. patient is sleepy but having a hard time with sleep because of pain. pain medication was just given. educated on possible length of stay but possible length of stay dependent on labs pain toleration of diet and md discretion. no concerns with stay. educated on medication toradol and dilaudid. offered to change iv this shift per her request to a more comfortable spot that decreases kinking to promote rest. she did ask to bring some things because she would like a shower later.
--- NOTE | 2022-05-06 14:23 | PC.NURSE ---
new iv started on patient 20 in l wrist. did attempt one previous stick in r arm
--- NOTE | 2022-05-06 17:53 | PC.NURSE ---
No acute changes noted this shift, patient remains on RA, alert and oriented x4, denies any cp or soa, c/o epigastric pain, treated with pain and nausea meds per emar with good results, ambulates with standby assist to BR, perrla, lung sounds cta, bowel sounds hypoactive, vss.
[2022-05-07 04:00] VITALS: BP 135/72; PULSE 102; RESP 16; TEMP 36.7; O2SAT 92
--- NOTE | 2022-05-07 05:25 | PC.NURSE ---
Addendum entered by Savannah King RN 05/07/22 05:28: Pt has also had nausea t/o night. Zofran administered 2x with relief. Original Note: Pt has c/o pain 7-9/10 in her upper abdomen/mid back multiple times t/o shift. PRN pain meds administered per JAN, pt states relief. Pt able to ambulate to BR with 1x assist. at bedside. Call light within reach.
[2022-05-07 08:00] VITALS: BP 129/66; PULSE 97; RESP 20; TEMP 36.8; O2SAT 96
--- NOTE | 2022-05-07 08:24 | HMH.ACPN2 ---
Internal Medicine - PN: Subj *Date: 05/07/22 *Time: 08:24 Interval history: Patient slept well. She still is in pain but wishes to try advancing to clear liquids today. No vomiting. Some nausea but this was ameliorated with Zofran and promethazine. Exam Vital signs and Labs for Last 24 Hours: Temp Pulse Resp BP Pulse Ox 98.1 F 102 H 16 135/72 92 L 05/07/22 04:00 05/07/22 04:00 05/07/22 04:00 05/07/22 04:00 05/07/22 04:00 Laboratory Results - last 24 hr 05/06/22 06:55: Lipase 19480 H I & O for Last 24 hours: Intake & Output 05/04/22 05/05/22 05/06/22 05/07/22 11:59 11:59 11:59 11:59 Intake Total 0 / 0 2276 / 2276 Balance 0 / 0 2276 / 2276 Weight 201 lb 1.6 oz Narrative: Patient is awake, alert. No scleral icterus. No jaundice. Breathing easily. Lungs clear, heart rate regular. Abdomen is nondistended but very tender throughout, slightly softer and she allows me to do a little bit more vigorous exam today than yesterday. No periumbilical or flank bruising. No peripheral edema. Neurologically intact. Assessment and Plan (1) Pancreatitis, acute Status: Acute Qualifiers: Pancreatitis type: unspecified pancreatitis type Acute pancreatitis complication: no infection or necrosis Qualified Code(s): K85.90 - Acute pancreatitis without necrosis or infection, unspecified Category: Medical Code(s): K85.90 - Acute pancreatitis without necrosis or infection, unspecified - Assessment and plan all Dx Assessment and Plan for all problems:: Pancreatitis-slowly improving. CT of abdomen and pelvis shows no structural issues, simply peripancreatic inflammation. I have personally been in contact with her track announcer-Dr. Guerrero, who feels this is post procedure pancreatitis which is apparently more common in folks who have had sphincter of Oddi manipulation. He recommends continuing supportive care as we are doing. Continue IV fluids, pain medication and antiemetics. Advance to clear liquids today. I have reviewed her home medication list and we will continue to hold most of them.
--- NOTE | 2022-05-07 09:20 | ECG_ITS ---
APPROVED REPORT Exam: Resting ECG HR:94 bpm ECG Measurements Heart Rate 94 AXES NM 146 P 44 QRSd 108 QRS 17 QT 350 T 18 QTc 402 Conclusion SINUS RHYTHM NORMAL ECG UNCONFIRMED REPORT Electronically signed by : Joaquin Arriaga MD 05/07/2022 16:56:21
--- NOTE | 2022-05-07 09:22 | PC.NURSE ---
Called Dr. Arriaga's office left a message for
--- NOTE | 2022-05-07 10:06 | PC.NURSE ---
0915 patient complaining of a lot of pain. some gas pain radiating up into chest. given toradol
--- NOTE | 2022-05-07 11:01 | PC.NURSE ---
Spoke with Dr. Arriaga about EKG. He stated that he did not want me to send it to him at this time.
[2022-05-07 11:52] VITALS: BMI 33.4
--- NOTE | 2022-05-07 14:46 | PC.NURSE ---
rounded on patient. complaints of pain. did ask for shower before administering pain medication. rings out as needed. at bedside. no questions or concerns at this time.
[2022-05-07 16:00] VITALS: BP 133/72; PULSE 104; RESP 20; TEMP 38; O2SAT 90
--- NOTE | 2022-05-07 16:05 | XR_ITS ---
FINAL REPORT CLINICAL HISTORY: FEVER COMPARISON: November 20, 2019 FINDINGS: A single portable view of the chest was obtained. The heart size and pulmonary vascularity are within normal limits. The mediastinum is within normal limits. There are low lung volumes. There are bibasilar pulmonary opacities, left greater than right. This likely represents pneumonia on the left and pneumonia versus atelectasis on the right. The bony thorax is intact. IMPRESSION: Bibasilar pulmonary opacities as above. Reviewed, Interpreted and Dictated by Rico Thompson III, MD Transcribed by Kelli Ogden Authenticated and [facility]
--- NOTE | 2022-05-07 18:57 | PC.NURSE ---
Pt was having a slight temp. We did a chest xray, blood cultures, and urine culture. Cultures are still pending. Pt chest xray showed PNA. Dr. Arriaga started her one abx. Will continue to monitor.
--- NOTE | 2022-05-07 19:35 | PC.NURSE ---
Contacted Alyssa with [employer] and notified them pt states she has received Rocephin before and did not have any kind of reaction. Pharmacy to enter Rocephin into [facility].
--- NOTE | 2022-05-07 19:36 | PC.NURSE ---
Pt c/o feeling SOA, O2 89%. 1 L o2 nc applied at this time.
[2022-05-07 19:53] VITALS: BP 128/79; PULSE 91; RESP 18; TEMP 37.3; O2SAT 94
[2022-05-07 20:00] VITALS: O2SAT 94
[2022-05-07 23:55] VITALS: O2SAT 95
[2022-05-08] VITALS (7 sets, daily range): BP systolic 125–153; BP diastolic 66–93; PULSE 84–100; RESP 17–20; TEMP 36.7–37.9; O2SAT 93–95
--- NOTE | 2022-05-08 07:45 | PC.NURSE ---
Pt tolerating 1 L nc well with sats >90. Tolerating diet well. PRN pain medication administered multiple times t/o shift. Pt states favorable results. Call light within reach
--- NOTE | 2022-05-08 08:03 | HMH.ACPN2 ---
Internal Medicine - PN: Subj *Date: 05/08/22 *Time: 17:45 Interval history: Patient continues to have significant pain. Developed oxygen requirement overnight. X-ray concerning for pneumonia versus atelectasis. Given inability to take deep breath, more concern for atelectasis and edema secondary to pancreatitis. Initiated on antibiotics however given fever development. Pain with any eating. Informed her this morning that I want to proceed with complete bowel rest. Difficult stick this morning for labs, discussed PICC line with patient. Significant pain responds well to Dilaudid. No vomiting. No diarrhea. Voiding independently, needs help walking to bathroom. Abdomen more distended this morning. Exam Vital signs and Labs for Last 24 Hours: Temp Pulse Resp BP Pulse Ox 99.1 F 94 H 20 150/85 H 95 05/08/22 03:30 05/08/22 03:30 05/08/22 03:30 05/08/22 03:30 05/08/22 03:30 I & O for Last 24 hours: Intake & Output 05/05/22 05/06/22 05/07/22 05/08/22 23:59 23:59 23:59 23:59 Intake Total 2276 / 2276 480 / 480 Balance 2276 / 2276 480 / 480 Weight 89.358 kg 91.217 kg 91 kg - Constitutional moderate distress, obese - *Routine HEENT Exam Head: Present: normocephalic Eye: Present: EOMI, PERRL ENT: Present: mucous membranes moist - *Routine Neck Exam Present: supple. Absent: lymphadenopathy - *Routine Respiratory Exam Present: CTA bilaterally, diminished air movement (In bases). Absent: wheezes - *Routine Cardiovascular Exam Present: RRR - *Routine Abdominal Exam Present: soft, normoactive bowel sounds, tenderness (Diffuse tenderness, distended abdomen, guarding and rebound) - *Routine Extremities Exam Absent: cyanosis, clubbing, edema - *Routine Skin Exam Present: warm. Absent: rash - *Routine Neurological Exam Present: alert, oriented X3 Assessment and Plan (1) Severe acute pancreatitis Status: Acute Category: Medical Code(s): K85.90 - Acute pancreatitis without necrosis or infection, unspecified (2) Pancreatitis, acute Status: Acute Qualifiers: Pancreatitis type: unspecified pancreatitis type Acute pancreatitis complication: no infection or necrosis Qualified Code(s): K85.90 - Acute pancreatitis without necrosis or infection, unspecified Category: Medical Code(s): K85.90 - Acute pancreatitis without necrosis or infection, unspecified (3) Class 1 obesity Status: Chronic Category: Medical Code(s): E66.9 - Obesity, unspecified (4) Hypocalcemia Status: Acute Category: Medical Code(s): E83.51 - Hypocalcemia - Assessment and plan all Dx Assessment and Plan for all problems:: Mrs. Reynolds is a 42-year-old female with a recent ERCP and sphincterotomy who developed a subsequent pancreatitis. Patient had 0 Surinder criteria on admission, 3 Surinder criteria at this time, 15% mortality risk. Symptoms consistent with severe pancreatitis. Given difficulty obtaining labs, fluid needs, will place PICC line today. Continue aggressive fluid hydration. Continue supplemental oxygen as needed. Patient made n.p.o. today, instructed her not to consume any fluids and to have complete bowel rest for the next 24 hours. Continue pain control as ordered. Encouraged to use Dilaudid as needed every 2 hours. Glucose remained stable. Repeat labs for the morning. Patient continues to require inpatient management, anticipate needing several more days in the hospital. We will reevaluate potential for initiating p.o. clear fluids tomorrow. Full code Patient is seriously ill, prognosis guarded.
--- NOTE | 2022-05-08 08:58 | XR_ITS ---
FINAL REPORT CLINICAL HISTORY: Confirm PICC line placement COMPARISON: May 07, 2022 FINDINGS: A single portable view of the chest was obtained. There is a new left PICC line with its tip in the lower SVC. The heart size and pulmonary vascularity are within normal limits. The mediastinum is within normal limits. There is persistent bibasilar atelectasis or pneumonia. There is a small left pleural effusion. The bony thorax is intact. IMPRESSION: PICC line with its tip in the lower SVC. Persistent bibasilar atelectasis or pneumonia. Reviewed, Interpreted and Dictated by Rico Thompson III, MD Transcribed by Eda Petersen Authenticated and [facility]
[2022-05-08 09:33] LABS: Basophils % 0.3 % (0.1-2.0); Eosinophils # 0.2 K/mm3 (0.0-0.4); Eosinophils % 1.6 % (0.1-12.0); Hematocrit 36.4 % (37.0-47.0); Hemoglobin 12.3 g/dL (12.2-16.2); Lymphocytes # 1.6 K/mm3 (0.7-4.5); Lymphocytes % 11.2 % (10-50); Mean Corpuscular HGB Conc 33.8 g/dL (31.8-35.4); Mean Corpuscular Hemoglobin 29.2 pg (27.0-31.2); Mean Corpuscular Volume 86.3 fl (81-99); Mean Platelet Volume 7.7 fl (7.4-10.4); Monocytes # 0.8 K/mm3 (0.1-1.0); Monocytes % 5.4 % (1.7-9.3); Neutrophils # 11.8 K/mm3 (1.8-7.8); Neutrophils % 81.6 % (37.0-80.0); Platelet Count 261 K/mm3 (142-424); Red Blood Count 4.22 M/mm3 (4.20-5.40); Red Cell Distribution Width 13.3 % (11.5-17.5); White Blood Count 14.4 K/mm3 (4.8-10.8)
[2022-05-08 09:41] LABS: Chloride 108 mmol/L (98-107); Potassium 3.3 mmoL/L (3.5-5.1); Sodium 135 mmol/L (136-145)
[2022-05-08 09:44] LABS: Alanine Aminotransferase 52 U/L (12-78); Albumin Level 2.9 g/dl (3.5-5.0); Albumin/Globulin Ratio 1.2 (1.1-1.8); Alkaline Phosphatase 76 U/L (38-126); Anion Gap 5.3 mEq/L (5-15); Aspartate Amino Transferase 48 U/L (14-36); Bilirubin,Total 1.4 mg/dl (0.2-1.3); Blood Urea Nitrogen 8 mg/dl (7-17); Calcium 7.3 mg/dl (8.4-10.2); Carbon Dioxide 25 mmol/L (22.0-30.0); Creatinine Clearance Estimated 206 mL/min (50-200); Estimated Glomerular Filt Rate 134 ml/min (>60); GFR (African American) 162 ML/MIN (>60); Globulin 2.5 g/dL (1.3-3.2); Glucose 119 mg/dl (74-100); Total Protein,Serum 5.4 g/dl (6.3-8.2)
--- NOTE | 2022-05-08 15:13 | PC.NURSE ---
ROUNDED ON PATIENT. SHE HAS HAD NO QUESTIONS OR CONCERNS. STILL CONTINUES TO HAVE SOME PAIN. IS AT BEDSIDE.
--- NOTE | 2022-05-08 16:14 | PC.NURSE ---
Pt has required pain meds every 2-3 hours this shift. Pt does report relief, but pain is quick to come back. PICC line placed successfully this shift. Old PIV removed d/t PICC access. Pt has been a standby assist to and from bathroom this shift. Sputum cup brought to pt's bedside. Pt verbalized understanding for need of sputum sample. Pt remains on 1LNC for comfort. remains at bedside. No other acute changes or complaints.
--- NOTE | 2022-05-08 16:17 | PC.NURSE ---
Notified respiratory of need for sputum sample.
--- NOTE | 2022-05-08 17:24 | PC.NURSE ---
Trash has been taken out of patients room
[2022-05-09] VITALS: BP 123/66; PULSE 93; RESP 20; TEMP 37.2; O2SAT 95
--- NOTE | 2022-05-09 03:01 | PC.NURSE ---
A&OX4. TOLERATING 1LNC WELL T/O SHIFT. UP WITH X1 STANDBY ASSIST TO BR. BOWEL SOUNDS ACTIVE IN ALL QUADRANTS PER AUSCULTATION. PT HAS REQUIRED PAIN MEDICATION Q2H PER JAN. AT BEDSIDE HELPING HER T/O THE NIGHT. HAS SLEPT INTERMITTENTLY. TOLERATED NPO DIET WELL. DID HAVE FEVER AT BEGINNING OF SHIFT, TX WITH TYLENOL AND ACTIVE COOLING. EFFECTIVENESS NOTED. NO OTHER NEEDS OR C.O THUS FAR. VSS WILL CONTINUE TO MONITOR.
[2022-05-09 03:53] VITALS: BP 131/79; PULSE 91; RESP 18; TEMP 36.8; O2SAT 95
[2022-05-09 06:52] VITALS: BMI 37.3
[2022-05-09 07:19] LABS: Basophils # 0.1 K/mm3 (0-0.2); Basophils % 0.4 % (0.1-2.0); Eosinophils # 0.2 K/mm3 (0.0-0.4); Eosinophils % 1.5 % (0.1-12.0); Hematocrit 37.4 % (37.0-47.0); Hemoglobin 11.3 g/dL (12.2-16.2); Lymphocytes # 1.5 K/mm3 (0.7-4.5); Lymphocytes % 11.6 % (10-50); Mean Corpuscular HGB Conc 30.3 g/dL (31.8-35.4); Mean Corpuscular Hemoglobin 28.2 pg (27.0-31.2); Mean Corpuscular Volume 93.3 fl (81-99); Mean Platelet Volume 8.6 fl (7.4-10.4); Monocytes # 0.8 K/mm3 (0.1-1.0); Monocytes % 6.4 % (1.7-9.3); Neutrophils # 10.5 K/mm3 (1.8-7.8); Neutrophils % 80.1 % (37.0-80.0); Platelet Count 269 K/mm3 (142-424); Red Blood Count 4.01 M/mm3 (4.20-5.40); Red Cell Distribution Width 13.9 % (11.5-17.5); White Blood Count 13.1 K/mm3 (4.8-10.8)
[2022-05-09 07:26] LABS: Alanine Aminotransferase 41 U/L (12-78); Albumin Level 2.9 g/dl (3.5-5.0); Albumin/Globulin Ratio 1.1 (1.1-1.8); Alkaline Phosphatase 90 U/L (38-126); Anion Gap 8.3 mEq/L (5-15); Aspartate Amino Transferase 36 U/L (14-36); Bilirubin,Total 1.4 mg/dl (0.2-1.3); Blood Urea Nitrogen 8 mg/dl (7-17); Calcium 7.6 mg/dl (8.4-10.2); Carbon Dioxide 26 mmol/L (22.0-30.0); Chloride 104 mmol/L (98-107); Creatinine Clearance Estimated 288 mL/min (50-200); Estimated Glomerular Filt Rate 173 ml/min (>60); GFR (African American) 210 ML/MIN (>60); Globulin 2.7 g/dL (1.3-3.2); Glucose 83 mg/dl (74-100); Magnesium 2.1 mg/dl (1.6-2.3); Potassium 3.3 mmoL/L (3.5-5.1); Sodium 135 mmol/L (136-145); Total Protein,Serum 5.6 g/dl (6.3-8.2)
[2022-05-09 07:50] VITALS: BP 140/77; PULSE 98; RESP 18; TEMP 37.1; O2SAT 94
--- NOTE | 2022-05-09 09:07 | HMH.ACPN2 ---
Internal Medicine - PN: Subj *Date: 05/09/22 *Time: 09:07 Interval history: Overall patient continues to be in pain, request pain medicine regular basis from the nurses. Is very thirsty. She has been n.p.o. given the slight worsening of her abdominal pain yesterday. She is parched. Exam Vital signs and Labs for Last 24 Hours: Temp Pulse Resp BP Pulse Ox 98.7 F 98 H 18 140/77 94 L 05/09/22 07:50 05/09/22 07:50 05/09/22 07:50 05/09/22 07:50 05/09/22 07:50 Laboratory Results - last 24 hr 05/08/22 09:22: WBC 14.4 H, RBC 4.22, Hgb 12.3, Hct 36.4 L, MCV 86.3, MCH 29.2, MCHC 33.8, RDW 13.3, Plt Count 261 D, MPV 7.7, Neut % (Auto) 81.6 H, Lymph % (Auto) 11.2, [place] % (Auto) 5.4, Eos % (Auto) 1.6, Baso % (Auto) 0.3, Neut # (Auto) 11.8 H, Lymph # (Auto) 1.6, [place] # (Auto) 0.8, Eos # (Auto) 0.2, Baso # (Auto) 0.0 05/08/22 09:22: Sodium 135 L, Potassium 3.3 L D, Chloride 108 H, Carbon Dioxide 25, Anion Gap 5.3, BUN 8 D, Creatinine 0.50 L, Estimated Creat Clear 206, Estimated GFR 134, Est GFR ( Amer) 162 D, Glucose 119 H, Calcium 7.3 L, Total Bilirubin 1.4 H, AST 48 H D, ALT 52 D, Alkaline Phosphatase 76, Total Protein 5.4 L D, Albumin 2.9 L, Globulin 2.5, Albumin/Globulin Ratio 1.2 05/09/22 06:43: WBC 13.1 H, RBC 4.01 L, Hgb 11.3 L, Hct 37.4, MCV 93.3, MCH 28.2, MCHC 30.3 L, RDW 13.9, Plt Count 269, MPV 8.6, Neut % (Auto) 80.1 H, Lymph % (Auto) 11.6, [place] % (Auto) 6.4, Eos % (Auto) 1.5, Baso % (Auto) 0.4, Neut # (Auto) 10.5 H, Lymph # (Auto) 1.5, [place] # (Auto) 0.8, Eos # (Auto) 0.2, Baso # (Auto) 0.1 05/09/22 06:43: Sodium 135 L, Potassium 3.3 L, Chloride 104, Carbon Dioxide 26, Anion Gap 8.3, BUN 8, Creatinine 0.40 L, Estimated Creat Clear 288, Estimated GFR 173, Est GFR ( Amer) 210 D, Glucose 83 D, Calcium 7.6 L, Magnesium 2.1, Total Bilirubin 1.4 H, AST 36, ALT 41, Alkaline Phosphatase 90, Total Protein 5.6 L, Albumin 2.9 L, Globulin 2.7, Albumin/Globulin Ratio 1.1 I & O for Last 24 hours: Intake & Output 05/06/22 05/07/22 05/08/22 05/09/22 11:59 11:59 11:59 11:59 Intake Total 0 / 0 2276 / 2276 600 / 600 2335 / 2335 Balance 0 / 0 2276 / 2276 600 / 600 2335 / 2335 Weight 201 lb 1.6 oz 200 lb 9.93 oz 224 lb 1.6 oz Microbiology Reports for the Last 24 Hours: Microbiology 05/08/22 16:47 Sputum - Expectorated Sputum Gram Stain - Final 05/07/22 16:42 Urine,Clean Catch Urine Culture - Preliminary NO GROWTH AFTER 24 HOURS Narrative: Alert, oriented. No jaundice. Lungs have poor air movement because of splinting inspiration because of pain. Abdomen is soft, very tender. No guarding. No bruising. Heart rate regular but slightly tachycardic when she takes a deep breath and has pain. No edema or clubbing. Assessment and Plan (1) Severe acute pancreatitis Status: Acute Category: Medical Code(s): K85.90 - Acute pancreatitis without necrosis or infection, unspecified (2) Pancreatitis, acute Status: Acute Qualifiers: Pancreatitis type: unspecified pancreatitis type Acute pancreatitis complication: no infection or necrosis Qualified Code(s): K85.90 - Acute pancreatitis without necrosis or infection, unspecified Category: Medical Code(s): K85.90 - Acute pancreatitis without necrosis or infection, unspecified (3) Class 1 obesity Status: Chronic Category: Medical Code(s): E66.9 - Obesity, unspecified (4) Hypocalcemia Status: Acute Category: Medical Code(s): E83.51 - Hypocalcemia (5) Hypokalemia Status: Acute Category: Medical Code(s): E87.6 - Hypokalemia - Assessment and plan all Dx Assessment and Plan for all problems:: 1. Pancreatitis-LFTs are improving. Enzyme levels are slightly improved. White count has come down by 1 point. Slow clinical improvement, discussed with her that we would need to try to increase her ventilatory efforts to avoid further alveolar compromise and do incentive spirometer 5 time
[2022-05-09 11:14] VITALS: BP 151/88; PULSE 94; RESP 17; TEMP 37.1; O2SAT 94
[2022-05-09 14:51] VITALS: BP 137/75; PULSE 94; RESP 18; TEMP 37.1; O2SAT 93
--- NOTE | 2022-05-09 18:08 | PC.NURSE ---
pt. A&OX4. has complained of pain continuously throughout the shift despite pain medication administration. reports passing flatus, small BM this shift, bowel sounds present, abdomen soft and tender. ambulating in [place] with standby assistance. use of incentive spirometer X5 per hr to 1000 at bedside, call light in reach, bed in lowest position and wheels locked.
[2022-05-09 19:49] VITALS: BP 164/87; PULSE 96; RESP 20; TEMP 36.8; O2SAT 89
[2022-05-10] VITALS (7 sets, daily range): BP systolic 127–166; BP diastolic 72–93; PULSE 88–101; RESP 17–20; TEMP 36.6–37.9; O2SAT 90–98; BMI 38.0; BMI 38.6; BMI 38.4
--- NOTE | 2022-05-10 03:48 | PC.NURSE ---
Pt A&O x 4. Pt on 1 L NC and tolerating well. Bowel sounds active x 4 quads. ABD - soft, tender. Pt has had 3 BMs this shift since she received stool softener. Medicated per JAN several times this shift for pain and nausea. L PICC is c/d/i - infusing per JAN. Pt using incentive spirometer frequently, reaching 1000ml. Pt ambulated in hallway once this shift with x 1 assist. Call light in reach, at bedside. No other needs or complaints voiced at this time.
--- NOTE | 2022-05-10 06:55 | PC.NURSE ---
total on pump - not cleared from previous shifts.
[2022-05-10 07:18] LABS: Basophils # 0.1 K/mm3 (0-0.2); Basophils % 0.4 % (0.1-2.0); Eosinophils # 0.3 K/mm3 (0.0-0.4); Eosinophils % 2.8 % (0.1-12.0); Hematocrit 33.1 % (37.0-47.0); Lymphocytes # 1.7 K/mm3 (0.7-4.5); Lymphocytes % 14.3 % (10-50); Mean Corpuscular HGB Conc 30.3 g/dL (31.8-35.4); Mean Corpuscular Hemoglobin 27.9 pg (27.0-31.2); Mean Corpuscular Volume 92.1 fl (81-99); Monocytes # 0.9 K/mm3 (0.1-1.0); Monocytes % 7.3 % (1.7-9.3); Neutrophils # 8.9 K/mm3 (1.8-7.8); Neutrophils % 75.2 % (37.0-80.0); Platelet Count 312 K/mm3 (142-424); Red Blood Count 3.59 M/mm3 (4.20-5.40); Red Cell Distribution Width 13.9 % (11.5-17.5); White Blood Count 11.8 K/mm3 (4.8-10.8)
--- NOTE | 2022-05-10 08:53 | HMH.ACPN2 ---
Internal Medicine - PN: Subj *Date: 05/10/22 *Time: 08:53 Interval history: Patient is up in a chair, using incentive spirometry. Able to pull about 1000 mils and tidal volume. Afebrile for the past 48 hours. Exam Vital signs and Labs for Last 24 Hours: Temp Pulse Resp BP Pulse Ox 97.9 F 89 17 146/91 H 98 05/10/22 07:52 05/10/22 07:52 05/10/22 07:52 05/10/22 07:52 05/10/22 07:52 Laboratory Results - last 24 hr 05/10/22 06:46: WBC 11.8 H, RBC 3.59 L, Hgb 10.0 L, Hct 33.1 L, MCV 92.1, MCH 27.9, MCHC 30.3 L, RDW 13.9, Plt Count 312, MPV 8.0, Neut % (Auto) 75.2, Lymph % (Auto) 14.3, [place] % (Auto) 7.3, Eos % (Auto) 2.8, Baso % (Auto) 0.4, Neut # (Auto) 8.9 H, Lymph # (Auto) 1.7, [place] # (Auto) 0.9, Eos # (Auto) 0.3, Baso # (Auto) 0.1 I & O for Last 24 hours: Intake & Output 05/07/22 05/08/22 05/09/22 05/10/22 11:59 11:59 11:59 11:59 Intake Total 2276 / 2276 600 / 600 2335 / 2335 5441 / 5441 Balance 2276 / 2276 600 / 600 2335 / 2335 5441 / 5441 Weight 200 lb 9.93 oz 224 lb 1.6 oz 228 lb 3.2 oz Microbiology Reports for the Last 24 Hours: Microbiology 05/07/22 16:42 Urine,Clean Catch Urine Culture - Final NO GROWTH AFTER 48 HOURS 05/07/22 16:30 Blood Blood Culture - Preliminary NO GROWTH AFTER 48 HOURS 05/07/22 16:25 Blood Blood Culture - Preliminary NO GROWTH AFTER 48 HOURS 05/08/22 16:47 Sputum - Expectorated Sputum Gram Stain - Final 05/08/22 16:47 Sputum - Expectorated Sputum Sputum Culture - Preliminary Narrative: Heart rate regular. Vital signs unremarkable. Lungs have very minimal atelectatic sounding crackles which clear with a good inspiration. Abdomen is still very tender but improving, no CVA tenderness. Patient thinks she has pedal edema but notes any evidence of this. Neurologically intact. Assessment and Plan (1) Severe acute pancreatitis Status: Acute Category: Medical Code(s): K85.90 - Acute pancreatitis without necrosis or infection, unspecified (2) Pancreatitis, acute Status: Acute Qualifiers: Pancreatitis type: unspecified pancreatitis type Acute pancreatitis complication: no infection or necrosis Qualified Code(s): K85.90 - Acute pancreatitis without necrosis or infection, unspecified Category: Medical Code(s): K85.90 - Acute pancreatitis without necrosis or infection, unspecified (3) Class 1 obesity Status: Chronic Category: Medical Code(s): E66.9 - Obesity, unspecified (4) Hypocalcemia Status: Acute Category: Medical Code(s): E83.51 - Hypocalcemia (5) Hypokalemia Status: Acute Category: Medical Code(s): E87.6 - Hypokalemia - Assessment and plan all Dx Assessment and Plan for all problems:: Overall improving. Continue fluid support. Cautious clear liquids today. Continue respiratory/pulmonary toilet. Continues to be on broad-spectrum antibiotics but cultures are negative. If continues to improve may consider discharge in the next couple of days.
[2022-05-10 09:16] LABS: Alanine Aminotransferase 33 U/L (12-78); Albumin Level 2.7 g/dl (3.5-5.0); Albumin/Globulin Ratio 1.1 (1.1-1.8); Alkaline Phosphatase 84 U/L (38-126); Anion Gap 8.2 mEq/L (5-15); Aspartate Amino Transferase 37 U/L (14-36); Blood Urea Nitrogen 8 mg/dl (7-17); Calcium 7.6 mg/dl (8.4-10.2); Carbon Dioxide 23 mmol/L (22.0-30.0); Chloride 104 mmol/L (98-107); Creatinine Clearance Estimated 293 mL/min (50-200); Estimated Glomerular Filt Rate 173 ml/min (>60); GFR (African American) 210 ML/MIN (>60); Globulin 2.5 g/dL (1.3-3.2); Glucose 83 mg/dl (74-100); Potassium 3.2 mmoL/L (3.5-5.1); Sodium 132 mmol/L (136-145); Total Protein,Serum 5.2 g/dl (6.3-8.2)
--- NOTE | 2022-05-10 10:37 | P.PN_ITS ---
Internal Medicine - PN: Subj *Date: 05/10/22 *Time: 10:37 Exam Vital signs and Labs for Last 24 Hours: Temp Pulse Resp BP Pulse Ox 97.9 F 89 17 146/91 H 98 05/10/22 07:52 05/10/22 07:52 05/10/22 07:52 05/10/22 07:52 05/10/22 07:52 Laboratory Results - last 24 hr 05/10/22 06:46: WBC 11.8 H, RBC 3.59 L, Hgb 10.0 L, Hct 33.1 L, MCV 92.1, MCH 27.9, MCHC 30.3 L, RDW 13.9, Plt Count 312, MPV 8.0, Neut % (Auto) 75.2, Lymph % (Auto) 14.3, [place] % (Auto) 7.3, Eos % (Auto) 2.8, Baso % (Auto) 0.4, Neut # (Auto) 8.9 H, Lymph # (Auto) 1.7, [place] # (Auto) 0.9, Eos # (Auto) 0.3, Baso # (Auto) 0.1 05/10/22 06:46: Sodium 132 L, Potassium 3.2 L, Chloride 104, Carbon Dioxide 23, Anion Gap 8.2, BUN 8, Creatinine 0.40 L, Estimated Creat Clear 293, Estimated GFR 173, Est GFR ( Amer) 210, Glucose 83, Calcium 7.6 L, Total Bilirubin 1.0, AST 37 H, ALT 33, Alkaline Phosphatase 84, Total Protein 5.2 L, Albumin 2.7 L, Globulin 2.5, Albumin/Globulin Ratio 1.1 I & O for Last 24 hours: Intake & Output 05/07/22 05/08/22 05/09/22 05/10/22 23:59 23:59 23:59 23:59 Intake Total 480 / 480 2455 / 2455 0 / 0 5441 / 5441 Balance 480 / 480 2455 / 2455 0 / 0 5441 / 5441 Weight 91 kg 101.65 kg 103.51 kg Microbiology Reports for the Last 24 Hours: Microbiology 05/07/22 16:42 Urine,Clean Catch Urine Culture - Final NO GROWTH AFTER 48 HOURS 05/07/22 16:30 Blood Blood Culture - Preliminary NO GROWTH AFTER 48 HOURS 05/07/22 16:25 Blood Blood Culture - Preliminary NO GROWTH AFTER 48 HOURS 05/08/22 16:47 Sputum - Expectorated Sputum Gram Stain - Final 05/08/22 16:47 Sputum - Expectorated Sputum Sputum Culture - Preliminary Assessment and Plan (1) Severe acute pancreatitis Status: Acute Category: Medical Code(s): K85.90 - Acute pancreatitis without necrosis or infection, unspecified (2) Pancreatitis, acute Status: Acute Qualifiers: Pancreatitis type: unspecified pancreatitis type Acute pancreatitis complication: no infection or necrosis Qualified Code(s): K85.90 - Acute pancreatitis without necrosis or infection, unspecified Category: Medical Code(s): K85.90 - Acute pancreatitis without necrosis or infection, unspecified (3) Class 1 obesity Status: Chronic Category: Medical Code(s): E66.9 - Obesity, unspecified (4) Hypocalcemia Status: Acute Category: Medical Code(s): E83.51 - Hypocalcemia (5) Hypokalemia Status: Acute Category: Medical Code(s): E87.6 - Hypokalemia The patient's infection will respond to the chosen ABx?: Yes Is the patient receiving the right drug, dose, and route?: Yes Could a more targeted ABx be ordered?: No
--- NOTE | 2022-05-10 16:07 | PC.NURSE ---
pt A&OX4. pt has had multiple BMs this shift and is passing flatus adequately. diet increased to clear liquids but pt reports abdominal pain when taking drinks. numerous reports of pain which is relieved with medication. at bedside, call light in reach, bed in lowest position and wheels locked.
--- NOTE | 2022-05-10 18:49 | PC.NURSE ---
gave pt broth. she reports she is unable to tolerate it. took two sips and was in extreme pain.
[2022-05-11 04:00] VITALS: BP 150/86; PULSE 94; RESP 20; TEMP 36.8
--- NOTE | 2022-05-11 04:36 | PC.NURSE ---
Addendum entered by Tea Maloney RN 05/11/22 06:14: clear liquid diet. Pt has been drinking water and gatorade this shift. Original Note: No changes since previous assessment. A&O x 4. Pt has c/o of abd pain, back pain, and nausea multiples times this shift. Medicated per MAR with favorable results. ABD soft, tender. BS active x 4. Pt has had multiple BMs this shift. Voiding per [place]. PICC c/d/i - IV infusing per order. Call light in reach. at bedside. No needs voiced at this time.
[2022-05-11 05:00] VITALS: BMI 38.7
[2022-05-11 06:21] LABS: Basophils # 0.1 K/mm3 (0-0.2); Basophils % 0.4 % (0.1-2.0); Eosinophils # 0.3 K/mm3 (0.0-0.4); Hematocrit 33.7 % (37.0-47.0); Hemoglobin 10.3 g/dL (12.2-16.2); Lymphocytes # 1.9 K/mm3 (0.7-4.5); Lymphocytes % 12.9 % (10-50); Mean Corpuscular HGB Conc 30.4 g/dL (31.8-35.4); Mean Corpuscular Hemoglobin 27.7 pg (27.0-31.2); Mean Corpuscular Volume 91.1 fl (81-99); Mean Platelet Volume 8.2 fl (7.4-10.4); Monocytes # 0.9 K/mm3 (0.1-1.0); Monocytes % 6.3 % (1.7-9.3); Neutrophils # 11.5 K/mm3 (1.8-7.8); Neutrophils % 78.3 % (37.0-80.0); Platelet Count 330 K/mm3 (142-424); White Blood Count 14.7 K/mm3 (4.8-10.8)
[2022-05-11 06:24] LABS: Alanine Aminotransferase 36 U/L (12-78); Albumin Level 2.8 g/dl (3.5-5.0); Alkaline Phosphatase 109 U/L (38-126); Anion Gap 9.1 mEq/L (5-15); Aspartate Amino Transferase 40 U/L (14-36); Bilirubin,Total 0.8 mg/dl (0.2-1.3); Calcium 7.8 mg/dl (8.4-10.2); Carbon Dioxide 26 mmol/L (22.0-30.0); Chloride 103 mmol/L (98-107); Globulin 2.8 g/dL (1.3-3.2); Glucose 95 mg/dl (74-100); Potassium 3.1 mmoL/L (3.5-5.1); Sodium 135 mmol/L (136-145); Total Protein,Serum 5.6 g/dl (6.3-8.2)
[2022-05-11 06:28] LABS: Blood Urea Nitrogen 5 mg/dl (7-17)
[2022-05-11 06:29] LABS: Creatinine Clearance Estimated 292 mL/min (50-200); Estimated Glomerular Filt Rate 173 ml/min (>60); GFR (African American) 210 ML/MIN (>60)
[2022-05-11 08:00] VITALS: BP 166/87; PULSE 89; RESP 18; TEMP 36.8; O2SAT 93
--- NOTE | 2022-05-11 08:50 | XR_ITS ---
PROCEDURE INFORMATION: Exam: XR Chest Exam date and time: 05/11/2022 9:01 AM Age: 42 years old Clinical indication: Shortness of breath; Additional info: F/u atelectasis TECHNIQUE: Imaging protocol: Radiologic exam of the chest. Views: 2 views. COMPARISON: CR XR CHEST PORTABLE PICC PLAC 05/08/2022 1:01 PM FINDINGS: Tubes, catheters and devices: Left upper extremity PICC terminates in the region of the superior cavoatrial junction. Lungs: Similar patchy bibasilar airspace opacities. Pleural spaces: Small left pleural effusion. No pneumothorax. Heart/Mediastinum: Unremarkable. No cardiomegaly. Bones/joints: Unremarkable. IMPRESSION: 1. Similar patchy bibasilar airspace opacities, which may reflect atelectasis versus pneumonia. 2. Small left pleural effusion.
--- NOTE | 2022-05-11 09:20 | HMH.ACPN2 ---
Internal Medicine - PN: Subj *Date: 05/11/22 *Time: 09:20 Interval history: Patient was up walking in hallway with the assistance of her . She has some leg pain, specifically in the back of the right thigh, and feels like she hurts all over but has never had visible ankle swelling and is able to walk around without any dizziness or dyspnea with exertion. She is able to pull 1000 mL on the incentive spirometer, but wishes she could do more. Is hungry and feels parched. She and her have a lot of questions about using herbalist based water mixture such as banana water, cucumber water and dandelion water. Gatorade yesterday was not helpful and caused some stomach pain-she reports that her herbalist [id number] thinks it is because it had a lot of acid in it. Exam Vital signs and Labs for Last 24 Hours: Temp Pulse Resp BP Pulse Ox 98.3 F 94 H 20 150/86 H 92 L 05/11/22 04:00 05/11/22 04:00 05/11/22 04:00 05/11/22 04:00 05/10/22 23:49 Laboratory Results - last 24 hr 05/11/22 06:02: WBC 14.7 H, RBC 3.70 L, Hgb 10.3 L, Hct 33.7 L, MCV 91.1, MCH 27.7, MCHC 30.4 L, RDW 14.0, Plt Count 330, MPV 8.2, Neut % (Auto) 78.3, Lymph % (Auto) 12.9, [place] % (Auto) 6.3, Eos % (Auto) 2.0, Baso % (Auto) 0.4, Neut # (Auto) 11.5 H, Lymph # (Auto) 1.9, [place] # (Auto) 0.9, Eos # (Auto) 0.3, Baso # (Auto) 0.1 05/11/22 06:02: Sodium 135 L, Potassium 3.1 L, Chloride 103, Carbon Dioxide 26, Anion Gap 9.1, BUN 5 L D, Creatinine 0.40 L, Estimated Creat Clear 292, Estimated GFR 173, Est GFR ( Amer) 210, Glucose 95, Calcium 7.8 L, Total Bilirubin 0.8, AST 40 H, ALT 36, Alkaline Phosphatase 109, Total Protein 5.6 L, Albumin 2.8 L, Globulin 2.8, Albumin/Globulin Ratio 1.0 L I & O for Last 24 hours: Intake & Output 05/08/22 05/09/22 05/10/22 05/11/22 11:59 11:59 11:59 11:59 Intake Total 600 / 600 2335 / 2335 5441 / 5441 1911 Balance 600 / 600 2335 / 2335 5441 / 5441 1911 Weight 224 lb 1.6 oz 225 lb 1 oz 227 lb 1.6 oz Microbiology Reports for the Last 24 Hours: Microbiology 05/08/22 16:47 Sputum - Expectorated Sputum Gram Stain - Final 05/08/22 16:47 Sputum - Expectorated Sputum Sputum Culture - Preliminary Narrative: Patient is alert, pleasant. Breathing easier than previously. Did have a temperature elevation over 100 degrees earlier yesterday evening No cough when she takes a deep breath. Lungs are clear and a little bit better expanded than yesterday. Heart rate regular. Abdomen remains tender but very minimally improved over yesterday's exam. Her extremities have no edema, there is some tenderness in the right medial hamstring area but I cannot feel any cord formation, distal pulses are good and there is no pitting. Neurologically she is intact. She has no rash. She has no [place] or [place] sign. I reviewed her chest x-ray which has some bibasilar atelectasis but no infiltrates per my review Assessment and Plan (1) Severe acute pancreatitis Status: Acute Category: Medical Code(s): K85.90 - Acute pancreatitis without necrosis or infection, unspecified (2) Pancreatitis, acute Status: Acute Qualifiers: Pancreatitis type: unspecified pancreatitis type Acute pancreatitis complication: no infection or necrosis Qualified Code(s): K85.90 - Acute pancreatitis without necrosis or infection, unspecified Category: Medical Code(s): K85.90 - Acute pancreatitis without necrosis or infection, unspecified (3) Class 1 obesity Status: Chronic Category: Medical Code(s): E66.9 - Obesity, unspecified (4) Hypocalcemia Status: Acute Category: Medical Code(s): E83.51 - Hypocalcemia (5) Hypokalemia Status: Acute Category: Medical Code(s): E87.6 - Hypokalemia - Assessment and plan all Dx Assessment and Plan for all problems:: 1. Severe pancreatitis-slight improvement. Hemoglobin remained stable. White count is slightly elevated over baseli
[2022-05-11 12:00] VITALS: BP 160/83; PULSE 82; PULSE 90; RESP 20; TEMP 37.2; O2SAT 94
--- NOTE | 2022-05-11 15:46 | DIET.NUTRFU ---
Patient is still experiencing abdminal pain, not tolerating gaterade. Planning to try herbal water, gingerale may also be tolerated. Will send riddle clear boost to help meet calories until able to upgrade diet. Based on length of clear liquids she is at risk for malnutrition/wt loss. IVF in place fore hydration. Reviewed lab, electrolytes low.
[2022-05-11 16:00] VITALS: BP 137/75; PULSE 85; RESP 16; TEMP 37.3; O2SAT 94
--- NOTE | 2022-05-11 18:02 | PC.NURSE ---
Pt has been medicated per MAR t/o this shift for pain w/ favorable results. Pt has c/o pain in the back of her RLE. Area is not warm to touch, pulses are present. Pt has been incontinent of bowel this shift. Pt has diuresed +2 L this shift. No edema noted at BLE. No other acute changes or complaints.
[2022-05-11 19:10] LABS: Chloride 99 mmol/L (98-107); Sodium 131 mmol/L (136-145)
[2022-05-11 19:13] LABS: Blood Urea Nitrogen 4 mg/dl (7-17); Carbon Dioxide 26 mmol/L (22.0-30.0); Creatinine Clearance Estimated 292 mL/min (50-200); Estimated Glomerular Filt Rate 173 ml/min (>60); GFR (African American) 210 ML/MIN (>60)
[2022-05-11 19:14] LABS: Glucose 113 mg/dl (74-100)
--- NOTE | 2022-05-11 19:21 | PC.NURSE ---
1920- Spoke to MD Villegas regarding critical K+ of 3.0. (2) runs of 10meQ K+ IV ordered.
[2022-05-11 20:00] VITALS: BP 143/71; PULSE 80; PULSE 88; RESP 16; TEMP 37.2; O2SAT 93
[2022-05-12] VITALS (7 sets, daily range): BP systolic 154–178; BP diastolic 75–89; PULSE 90–107; RESP 16–21; TEMP 37.1–37.4; O2SAT 94–98; BMI 37.4
--- NOTE | 2022-05-12 04:17 | PC.NURSE ---
Pt has complained of pain 3 times, medicated PRN per jan. Pt has complained of nausea 1 time, medicated PRN per jan. Pt has ambulated to bathroom with 1x assist this shift, pt has been up to chair this shift. O2 sat 93-94% room air. Incontinent of urine this shift. No other complaints. Pt has rested intermittently throughout shift.
[2022-05-12 06:17] LABS: Basophils # 0.1 K/mm3 (0-0.2); Basophils % 0.5 % (0.1-2.0); Eosinophils # 0.4 K/mm3 (0.0-0.4); Eosinophils % 1.9 % (0.1-12.0); Hematocrit 30.7 % (37.0-47.0); Hemoglobin 10.5 g/dL (12.2-16.2); Lymphocytes # 1.8 K/mm3 (0.7-4.5); Lymphocytes % 9.5 % (10-50); Mean Corpuscular HGB Conc 34.2 g/dL (31.8-35.4); Mean Corpuscular Hemoglobin 28.1 pg (27.0-31.2); Monocytes # 1.3 K/mm3 (0.1-1.0); Platelet Count 362 K/mm3 (142-424); Red Blood Count 3.75 M/mm3 (4.20-5.40); Red Cell Distribution Width 13.2 % (11.5-17.5); White Blood Count 18.6 K/mm3 (4.8-10.8)
[2022-05-12 06:20] LABS: MANUAL DIFFERENTIAL MANUAL DIFFERENTIAL (MANUAL DIFF)
[2022-05-12 06:24] LABS: Alanine Aminotransferase 30 U/L (12-78); Albumin Level 2.8 g/dl (3.5-5.0); Alkaline Phosphatase 105 U/L (38-126); Anion Gap 9.2 mEq/L (5-15); Aspartate Amino Transferase 34 U/L (14-36); Bilirubin,Total 0.8 mg/dl (0.2-1.3); Blood Urea Nitrogen 5 mg/dl (7-17); Carbon Dioxide 28 mmol/L (22.0-30.0); Chloride 97 mmol/L (98-107); Creatinine Clearance Estimated 282 mL/min (50-200); Estimated Glomerular Filt Rate 173 ml/min (>60); GFR (African American) 210 ML/MIN (>60); Globulin 2.8 g/dL (1.3-3.2); Potassium 3.2 mmoL/L (3.5-5.1); Sodium 131 mmol/L (136-145); Total Protein,Serum 5.6 g/dl (6.3-8.2)
[2022-05-12 06:25] LABS: Calcium 7.8 mg/dl (8.4-10.2); Glucose 99 mg/dl (74-100)
[2022-05-12 06:49] LABS: Anisocytosis 1+; Eosinophils % 1 % (0-3); Hypochromasia 1+; Lymphocytes % 8 % (10-50); Monocytes % 4 % (2-9); Neutrophils % 87 % (42-76); Platelet Estimate Normal; Total Cells Counted 100
--- NOTE | 2022-05-12 08:19 | CA_ITS ---
FINAL REPORT CLINICAL HISTORY: Right leg pain, DVT? FINDINGS: Color Doppler, duplex Doppler and compression sonography of the bilateral lower extremities was performed. There is no evidence of deep venous thrombosis from the level of the groin to the calf. The deep veins are patent and compressible. IMPRESSION: No evidence of deep venous thrombosis bilateral lower extremities. Reviewed, Interpreted and Dictated by Rico Thompson III, MD Transcribed by Renato Martinez Authenticated and [facility]
--- NOTE | 2022-05-12 08:20 | HMH.ACPN2 ---
Internal Medicine - PN: Subj *Date: 05/12/22 *Time: 09:45 Interval history: Hemodynamically stable overnight. Ambulating independently. Complaining of some right leg pain today however. Was present yesterday but unable to obtain Doppler due to holiday. No significant swelling of legs or asymmetry. Patient tolerating banana water and cucumber water in small quantities. Does complain of some heartburn type discomfort with regular water. No nausea or vomiting. Feels better from a breathing standpoint after diuresis yesterday. Afebrile, in bedside chair on exam. Exam Vital signs and Labs for Last 24 Hours: Temp Pulse Resp BP Pulse Ox 98.7 F 93 H 17 158/88 H 94 L 05/12/22 04:00 05/12/22 04:00 05/12/22 04:00 05/12/22 04:00 05/12/22 04:00 Laboratory Results - last 24 hr 05/11/22 18:30: Sodium 131 L, Potassium 3.0 L, Chloride 99, Carbon Dioxide 26, Anion Gap 9.0, BUN 4 L, Creatinine 0.40 L, Estimated Creat Clear 292, Estimated GFR 173, Est GFR ( Amer) 210, Glucose 113 H, Calcium 8.0 L 05/12/22 06:08: WBC 18.6 H D, RBC 3.75 L, Hgb 10.5 L, Hct 30.7 L, MCV 82.0, MCH 28.1, MCHC 34.2, RDW 13.2, Plt Count 362, MPV 7.0 L, Neut % (Auto) 81.0 H, Lymph % (Auto) 9.5 L, [place] % (Auto) 7.0, Eos % (Auto) 1.9, Baso % (Auto) 0.5, Neut # (Auto) 15.0 H, Lymph # (Auto) 1.8, [place] # (Auto) 1.3 H, Eos # (Auto) 0.4, Baso # (Auto) 0.1, Total Counted 100, Neutrophils % (Manual) 87 H, Lymphocytes % (Manual) 8 L, Monocytes % (Manual) 4, Eosinophils % (Manual) 1, Platelet Estimate Normal, Hypochromasia 1+, Anisocytosis 1+ 05/12/22 06:08: Sodium 131 L, Potassium 3.2 L, Chloride 97 L, Carbon Dioxide 28, Anion Gap 9.2, BUN 5 L, Creatinine 0.40 L, Estimated Creat Clear 282, Estimated GFR 173, Est GFR ( Amer) 210, Glucose 99, Calcium 7.8 L, Total Bilirubin 0.8, AST 34, ALT 30, Alkaline Phosphatase 105, Total Protein 5.6 L, Albumin 2.8 L, Globulin 2.8, Albumin/Globulin Ratio 1.0 L I & O for Last 24 hours: Intake & Output 05/09/22 05/10/22 05/11/22 05/12/22 23:59 23:59 23:59 23:59 Intake Total 0 / 0 5441 / 5441 2634 / 2634 1516 / 1516 Output Total 2300 / 2450 450 / 450 Balance 0 / 0 5441 / 5441 334 / 184 1066 / 1066 Weight 101.65 kg 102.058 kg 103.011 kg 99.382 kg Microbiology Reports for the Last 24 Hours: Microbiology 05/08/22 16:47 Sputum - Expectorated Sputum Gram Stain - Final 05/08/22 16:47 Sputum - Expectorated Sputum Sputum Culture - Preliminary Narrative: - Constitutional mild distress on RA, obese - *Routine HEENT Exam Head: Present: normocephalic Eye: Present: EOMI, PERRL ENT: Present: mucous membranes moist - *Routine Neck Exam Present: supple. Absent: lymphadenopathy - *Routine Respiratory Exam Present: CTA bilaterally, diminished air movement (In bases). Absent: wheezes - *Routine Cardiovascular Exam Present: RRR - *Routine Abdominal Exam Present: soft, normoactive bowel sounds, intervally improved tenderness (less distended) - *Routine Extremities Exam No cyanosis, clubbing; 1+ BLE edema; right medial thigh TTP with no cord palpable - *Routine Skin Exam Present: warm. Absent: rash - *Routine Neurological Exam Present: alert, oriented X3 Assessment and Plan (1) Severe acute pancreatitis Status: Acute Category: Medical Code(s): K85.90 - Acute pancreatitis without necrosis or infection, unspecified (2) Pancreatitis, acute Status: Acute Qualifiers: Pancreatitis type: unspecified pancreatitis type Acute pancreatitis complication: no infection or necrosis Qualified Code(s): K85.90 - Acute pancreatitis without necrosis or infection, unspecified Category: Medical Code(s): K85.90 - Acute pancreatitis without necrosis or infection, unspecified (3) Class 1 obesity Status: Chronic Category: Medical Code(s): E66.9 - Obesity, unspecified (4) Hypocalcemia Status: Acute Category: Medical Code(s): E83.51 - Hypocalcemia (5) Hypokalemia Status: Acu
--- NOTE | 2022-05-12 13:05 | DIET.NUTRFU ---
Spoke to patient and about diet tolerance and what diet to go home on. Currently patient is tolerating minimal clear liquids. [place] water, had chicken broth this morning. Green jello did not tolerant, would prefer red or orange. Boost clear riddle flavor tolerated well, it is ordered with all trays. For extra calories and protein until able to upgrade diet. Patient was on metformin at home for DM, she reports her diet consistent of potatoes/chicken and green beans. She would like handouts on what to get upon discharge, will provide. She does have a garden and is looking forward to eating alot of fresh vegetables. Provider vadim over weekend- 2 liters out. Continues on IVF, plan to stop today. Labs reviewed.
--- NOTE | 2022-05-12 14:55 | PC.NURSE ---
rounded on patient no questions or concerns. did ask for a shower this shift. no complaints at that time, drinking sweet tea.
--- NOTE | 2022-05-12 18:04 | PC.NURSE ---
PT IS ALERT AND ORIENTED X4. SHE HAS BEEN MEDICATED FOR PAIN PER MAR. SHE HAS HAD NO C/O NAUSEA. SHE HAS BEEN UP AND AMBULATED IN HER ROOM SEVERAL TIMES THIS SHIFT. DIET ADVANCED TO CLEARS. TOLERATED LUNCH WELL. SHE REMAINS ON ROOM AIR. NO OTHER COMPLAINTS.
--- NOTE | 2022-05-12 21:07 | PC.NURSE ---
pt rounded on at 2039, assisted her back to bed from the bathroom. pt did not need anything else at this time. will continue to check on pt throughout the night.
[2022-05-13 03:51] VITALS: BP 136/75; PULSE 96; RESP 16; TEMP 37.1; O2SAT 94
--- NOTE | 2022-05-13 04:10 | PC.NURSE ---
pt has had several episodes of loose stools, has complained of gas pains and has been passing gas, did complain of nausea one time and was treated per JAN, has complained of pain two times and was treated per JAN, did ambulate in hallway at beginning of shift with , states that nausea and pain started after having broth and a Boost Breeze
[2022-05-13 05:00] VITALS: BMI 36.4
[2022-05-13 05:23] LABS: Basophils # 0.1 K/mm3 (0-0.2); Basophils % 0.6 % (0.1-2.0); Eosinophils # 0.4 K/mm3 (0.0-0.4); Eosinophils % 1.7 % (0.1-12.0); Hematocrit 32.5 % (37.0-47.0); Hemoglobin 10.2 g/dL (12.2-16.2); Lymphocytes # 1.9 K/mm3 (0.7-4.5); Lymphocytes % 8.1 % (10-50); Mean Corpuscular HGB Conc 31.4 g/dL (31.8-35.4); Mean Corpuscular Hemoglobin 27.3 pg (27.0-31.2); Mean Platelet Volume 7.5 fl (7.4-10.4); Monocytes # 1.5 K/mm3 (0.1-1.0); Monocytes % 6.4 % (1.7-9.3); Neutrophils # 19.7 K/mm3 (1.8-7.8); Neutrophils % 83.1 % (37.0-80.0); Platelet Count 424 K/mm3 (142-424); Red Blood Count 3.74 M/mm3 (4.20-5.40); White Blood Count 23.7 K/mm3 (4.8-10.8)
[2022-05-13 05:26] LABS: Chloride 99 mmol/L (98-107); Sodium 132 mmol/L (136-145)
[2022-05-13 05:29] LABS: Alanine Aminotransferase 27 U/L (12-78); Albumin Level 2.8 g/dl (3.5-5.0); Alkaline Phosphatase 100 U/L (38-126); Aspartate Amino Transferase 36 U/L (14-36); Blood Urea Nitrogen 4 mg/dl (7-17); Carbon Dioxide 28 mmol/L (22.0-30.0); Creatinine Clearance Estimated 274 mL/min (50-200); Estimated Glomerular Filt Rate 173 ml/min (>60); GFR (African American) 210 ML/MIN (>60); Globulin 2.7 g/dL (1.3-3.2); Glucose 117 mg/dl (74-100); Total Protein,Serum 5.5 g/dl (6.3-8.2)
[2022-05-13 05:30] LABS: Magnesium 1.6 mg/dl (1.6-2.3)
[2022-05-13 05:37] LABS: MANUAL DIFFERENTIAL MANUAL DIFFERENTIAL (MANUAL DIFF)
--- NOTE | 2022-05-13 06:48 | PC.NURSE ---
pt did complain of pain this morning in left shoulder area, pt encouraged to change position and walk, pt ambulated 2 X around the floor with some relief noted
[2022-05-13 07:48] LABS: Lymphocytes % 11 % (10-50); Monocytes % 4 % (2-9); Neutrophils % 85 % (42-76); RBC Morphology Normal; Total Cells Counted 100
[2022-05-13 07:49] LABS: Platelet Estimate Normal
[2022-05-13 08:00] VITALS: BP 148/78; PULSE 94; RESP 16; TEMP 37.1; O2SAT 96
--- NOTE | 2022-05-13 08:24 | CT_ITS ---
FINAL REPORT TECHNIQUE: Axial CT images of the abdomen and pelvis were obtained before and after the administration of IV contrast. Oral contrast was administered.This study was performed with techniques to keep radiation doses as low as reasonably achievable (ALARA). Individualized dose reduction techniques using automated exposure control or adjustment of mA and/or kV according to the patient''s size were employed. CLINICAL HISTORY: f/u pancreatitis and elevated WBC today COMPARISON: 05/06/2022 FINDINGS: Abdomen: There are small right and moderate left pleural effusions. The left pleural effusion is worse since previous. Bilateral lower lobe atelectasis is identified, worse since previous. The heart is normal in size. There is mild fatty infiltration of the liver. There is mild gallbladder wall thickening. Small amount of ascites is seen, stable. The spleen is unremarkable. No adrenal masses present. Fluid and stranding is seen surrounding the pancreas consistent with acute pancreatitis with presumed acute fluid collections. No definite walled fluid collection is identified to suggest an abscess or pseudocyst at this time. The amount of peripancreatic fluid has overall increased since previous. Notice made of anasarca. The kidneys enhance normally. The aorta is normal in caliber. No mass or abnormal fluid collection is seen. Precontrast images demonstrate no evidence of nephrolithiasis. Pelvis: The appendix is not well visualized. The urinary bladder is unremarkable. No inflammatory process is seen. There is no evidence of mass or adenopathy. There is a small to moderate ascites in the pelvis, stable. There is no evidence of bowel obstruction. IMPRESSION: Worsening left effusion and worsening bibasilar atelectasis. Worsening of acute fluid collection surrounding the pancreas without abscess or pseudocyst. Stable ascites in the abdomen and pelvis. Reviewed, Interpreted and Dictated by Rico Thompson III, MD Transcribed by Mary Moore Authenticated and . [facility]
--- NOTE | 2022-05-13 08:26 | HMH.ACPN2 ---
Internal Medicine - PN: Subj *Date: 05/13/22 *Time: 08:26 Interval history: Overnight patient has been much more active, has been active around the hospital for several 's with less pain. She continues to breathe better after Lasix over the weekend, and has less cough and dyspnea. Her pain from a gnawing/epigastric perspective is stable/better --but she has continued gas, belching, diarrhea and flatulence and from any kind of liquids Exam Vital signs and Labs for Last 24 Hours: Temp Pulse Resp BP Pulse Ox 98.8 F 96 H 16 136/75 94 L 05/13/22 03:51 05/13/22 03:51 05/13/22 03:51 05/13/22 03:51 05/13/22 03:51 Laboratory Results - last 24 hr 05/13/22 05:10: WBC 23.7 H* D, RBC 3.74 L, Hgb 10.2 L, Hct 32.5 L, MCV 87.0, MCH 27.3, MCHC 31.4 L, RDW 14.0, Plt Count 424, MPV 7.5, Neut % (Auto) 83.1 H, Lymph % (Auto) 8.1 L, [place] % (Auto) 6.4, Eos % (Auto) 1.7, Baso % (Auto) 0.6, Neut # (Auto) 19.7 H, Lymph # (Auto) 1.9, [place] # (Auto) 1.5 H, Eos # (Auto) 0.4, Baso # (Auto) 0.1, Total Counted 100, Neutrophils % (Manual) 85 H, Lymphocytes % (Manual) 11, Monocytes % (Manual) 4, Platelet Estimate Normal, RBC Morphology Normal 05/13/22 05:10: Sodium 132 L, Potassium 3.0 L, Chloride 99, Carbon Dioxide 28, Anion Gap 8.0, BUN 4 L, Creatinine 0.40 L, Estimated Creat Clear 274, Estimated GFR 173, Est GFR ( Amer) 210, Glucose 117 H, Calcium 8.0 L, Magnesium 1.6, Total Bilirubin 1.0, AST 36, ALT 27, Alkaline Phosphatase 100, Total Protein 5.5 L, Albumin 2.8 L, Globulin 2.7, Albumin/Globulin Ratio 1.0 L I & O for Last 24 hours: Intake & Output 05/10/22 05/11/22 05/12/22 05/13/22 11:59 11:59 11:59 11:59 Intake Total 5441 / 5441 2011 2138 / 2138 540 / 540 Output Total 300 / 300 2450 / 2450 809 / 809 Balance 5441 / 5441 1712 / 1712 -312 / -312 -269 / -269 Weight 225 lb 1 oz 227 lb 1.6 oz 219 lb 1.6 oz 213 lb 9 oz Microbiology Reports for the Last 24 Hours: Microbiology 05/07/22 16:30 Blood Blood Culture - Final NO GROWTH AFTER 5 DAYS 05/07/22 16:25 Blood Blood Culture - Final NO GROWTH AFTER 5 DAYS 05/08/22 16:47 Sputum - Expectorated Sputum Gram Stain - Final 05/08/22 16:47 Sputum - Expectorated Sputum Sputum Culture - Final Normal Respiratory Elayne - Constitutional no acute distress - *Routine HEENT Exam Head: Present: normocephalic Eye: Present: EOMI, PERRL ENT: Present: mucous membranes moist - *Routine Neck Exam Present: supple. Absent: lymphadenopathy - *Routine Respiratory Exam Present: CTA bilaterally - *Routine Cardiovascular Exam Present: RRR - *Routine Abdominal Exam Present: soft, normoactive bowel sounds, tenderness (Slightly improved tenderness over previous exams), guarding - *Routine Extremities Exam Absent: cyanosis, clubbing, edema Comments: Patient complains of swelling around the PICC line and some discomfort, but the insertion site has no redness, drainage or streaking up or edema along the tract of the catheter. Perhaps mild distal swelling circumferentially around the left forearm compared to the right but extremely mild. - *Routine Skin Exam Present: warm. Absent: rash - *Routine Neurological Exam Present: alert, oriented X3 Assessment and Plan (1) Severe acute pancreatitis Status: Acute Category: Medical Code(s): K85.90 - Acute pancreatitis without necrosis or infection, unspecified (2) Pancreatitis, acute Status: Acute Qualifiers: Pancreatitis type: unspecified pancreatitis type Acute pancreatitis complication: no infection or necrosis Qualified Code(s): K85.90 - Acute pancreatitis without necrosis or infection, unspecified Category: Medical Code(s): K85.90 - Acute pancreatitis without necrosis or infection, unspecified (3) Class 1 obesity Status: Chronic Category: Medical Code(s): E66.9 - Obesity, unspecified (4) Hypocalce
--- NOTE | 2022-05-13 09:48 | PC.NURSE ---
Pt finished drinking po contrast @ 091. Called RAD to make aware.
--- NOTE | 2022-05-13 10:11 | PC.NURSE ---
PICC to LA removed w/o difficulty, per Dr. Arriaga's order. 20 G placed in RAC.
[2022-05-13 11:25] VITALS: BP 144/92; PULSE 88; RESP 17; TEMP 37.2; O2SAT 95
--- NOTE | 2022-05-13 11:35 | PC.NURSE ---
Pt to ct at 1132.
[2022-05-13 15:29] VITALS: BP 136/70; PULSE 89; RESP 18; TEMP 36.8; O2SAT 98
--- NOTE | 2022-05-13 15:59 | DIET.NUTRFU ---
Addendum entered by Isabela Hendricks RD, LD 05/14/22 10:52: reviewed handout provided on low fat diet and DM. Provider would like her to try solids today. Original Note: Provided handout for pancreatitis and DM, she had company at the time. Will revisit for any questions after rounds tomorrow.
--- NOTE | 2022-05-13 16:04 | PC.NURSE ---
PT STATED THAT SHE FELT DIZZY AND REQUESTED THAT HER BLOOD SUGAR BE TESTED. THIS RN GOT A FSBS OF 92.
--- NOTE | 2022-05-13 18:27 | PC.NURSE ---
PT IS ALERT AND ORIENTED X4. SHE HAS AMBULATED THE MOTT AND IN HER ROOM TODAY. HAS COMPLAINED OF PAIN TWICE THIS SHIFT AND WAS MEDICATED PER MAR. ONLY C/O HEART BURN ONCE. PICC LINE PULLED THIS AM AND PT TOLERATED WELL. PT HAS HAD DIARRHEA THIS AFTERNOON. STOOL SAMPLE ORDERED AND PATIENT PLACED IN CONTACT-ENTERIC PRECAUTIONS FOR THE PENDING RESULT.
[2022-05-13 19:29] LABS: POC Glucose,Bedside 92 (70-110)
[2022-05-13 19:55] VITALS: BP 142/79; PULSE 105; RESP 18; TEMP 37; O2SAT 96
[2022-05-13 22:08] LABS: Adenovirus F 40/41, stool Not Detected (NotDetected); Astrovirus Not Detected (NotDetected); Campylobacter Not Detected (NotDetected); Clostridium Difficile A/B, PCR Not Detected (NotDetected); Cryptosporidium Not Detected (NotDetected); Cyclospora Cayetanesis Not Detected (NotDetected); Entamoeba histolytica Not Detected (NotDetected); Enteroaggregative E coli Not Detected (NotDetected); Enteropathogenic E coli Not Detected (NotDetected); Enterotoxigenic E coli Not Detected (NotDetected); Giardia lamblia Not Detected (NotDetected); Norovirus Not Detected (NotDetected); Plesimonas Shigalloides, PCR Not Detected (NotDetected); Rotavirus A Not Detected (NotDetected); Salmonella, PCR Not Detected (NotDetected); Sapovirus Not Detected (NotDetected); Shiga-like toxin E coli Not Detected (NotDetected); Shigella Enterovasive E coli Not Detected (NotDetected); Vibrio Cholerae Not Detected (NotDetected); Vibrio, PCR Not Detected (NotDetected); Yersinia Entercolitica, PCR Not Detected (NotDetected)
[2022-05-13 23:57] VITALS: BP 128/84; PULSE 99; RESP 18; TEMP 37.7; O2SAT 96
[2022-05-14 03:40] VITALS: BP 115/70; PULSE 93; RESP 18; TEMP 37.2; O2SAT 94
[2022-05-14 04:50] VITALS: BMI 35.9
--- NOTE | 2022-05-14 04:57 | PC.NURSE ---
A&OX4. TOLERATING RA WELL. HAS C/O ABD PAIN AND NAUSEA T/O SHIFT, TX PER JAN. PT HAS ALSO C/O GAS PAIN, WALKED 3 LAPS AROUND FLOOR TONIGHT, TOLERATED WELL. PT HAS HAD MULTIPLE LOOSE, SMALL BMs. STOOL SAMPLE COLLECTED THIS SHIFT, STOOL PANEL NEGATIVE. PT SLEEPING INTERMITTENTLY T/O SHIFT. NO OTHER NEEDS, VSS, WILL CONTINUE TO MONITOR.
[2022-05-14 07:06] LABS: Basophils # 0.1 K/mm3 (0-0.2); Basophils % 0.4 % (0.1-2.0); Eosinophils # 0.4 K/mm3 (0.0-0.4); Eosinophils % 1.6 % (0.1-12.0); Hematocrit 31.6 % (37.0-47.0); Hemoglobin 10.7 g/dL (12.2-16.2); Lymphocytes # 2.1 K/mm3 (0.7-4.5); Lymphocytes % 8.3 % (10-50); Mean Corpuscular Volume 82.5 fl (81-99); Mean Platelet Volume 7.7 fl (7.4-10.4); Neutrophils # 21.4 K/mm3 (1.8-7.8); Neutrophils % 85.6 % (37.0-80.0); Platelet Count 437 K/mm3 (142-424); Red Blood Count 3.83 M/mm3 (4.20-5.40); Red Cell Distribution Width 13.3 % (11.5-17.5)
[2022-05-14 07:15] LABS: MANUAL DIFFERENTIAL MANUAL DIFFERENTIAL (MANUAL DIFF)
[2022-05-14 07:28] LABS: Alanine Aminotransferase 25 U/L (12-78); Albumin Level 2.6 g/dl (3.5-5.0); Alkaline Phosphatase 97 U/L (38-126); Anion Gap 11.6 mEq/L (5-15); Aspartate Amino Transferase 35 U/L (14-36); Bilirubin,Total 0.8 mg/dl (0.2-1.3); Blood Urea Nitrogen 4 mg/dl (7-17); Calcium 8.1 mg/dl (8.4-10.2); Carbon Dioxide 28 mmol/L (22.0-30.0); Chloride 98 mmol/L (98-107); Creatinine Clearance Estimated 270 mL/min (50-200); Estimated Glomerular Filt Rate 173 ml/min (>60); GFR (African American) 210 ML/MIN (>60); Globulin 2.6 g/dL (1.3-3.2); Glucose 111 mg/dl (74-100); Potassium 3.6 mmoL/L (3.5-5.1); Sodium 134 mmol/L (136-145); Total Protein,Serum 5.2 g/dl (6.3-8.2)
[2022-05-14 07:50] LABS: Eosinophils % 3 % (0-3); Lymphocytes % 9 % (10-50); Monocytes % 3 % (2-9); Neutrophils % 85 % (42-76); Platelet Estimate Slight Increase; Total Cells Counted 100
[2022-05-14 07:51] LABS: Anisocytosis 1+; Hypochromasia 1+; Poikilocytosis 1+
[2022-05-14 08:00] VITALS: BP 127/63; PULSE 88; RESP 16; TEMP 36.9; O2SAT 95; O2SAT 96
--- NOTE | 2022-05-14 08:50 | HMH.ACPN2 ---
Internal Medicine - PN: Subj *Date: 05/14/22 *Time: 08:50 Interval history: Patient complains today of a lot of gas pain and bloating. She notes that her pancreas pain is much better and Dilaudid does a great job for this but it does not help the viscous type pain. Has had no fever overnight. Has been able to tolerate clear liquids and notes that she is hungry. Exam Vital signs and Labs for Last 24 Hours: Temp Pulse Resp BP Pulse Ox 98.9 F 93 H 18 115/70 94 L 05/14/22 03:40 05/14/22 03:40 05/14/22 03:40 05/14/22 03:40 05/14/22 03:40 Laboratory Results - last 24 hr 05/13/22 15:57: POC Glucose 92 05/13/22 21:50: Stl Aeromonas (PCR) Not detected, Stl C. cayetanensis PCR Not detected, Stool Rotavirus (PCR) Not detected, Stl Adenov F 40/41 PCR Not detected, Stool Astrovirus (PCR) Not detected, Stool Campylobacter PCR Not detected, Stl C.difficile Tox PCR Not detected, Stool Cryptosporidium PCR Not detected, Stl E.coli Shiga Tox PCR Not detected, Stool E coli O157 PCR Not detected, Stl Enterotoxigenic E PCR Not detected, Stool EPEC (PCR) Not detected, Stool EAEC (PCR) Not detected, Stl E. histolytica PCR Not detected, Stool Giardia Lamblia PCR Not detected, Stool Salmonella PCR Not detected, Stool Sapovirus (PCR) Not detected, Stl P. shigelloides PCR Not detected, Stl Shigella/EIEC PCR Not detected, St Y.enterocolitica PCR Not detected, Stool Vibrio (PCR) Not detected, Stl Vibrio cholerae PCR Not detected, Stl Norovirus GI/GII PCR Not detected 05/14/22 06:55: WBC 25.0 H*, RBC 3.83 L, Hgb 10.7 L, Hct 31.6 L, MCV 82.5, MCH 28.0, MCHC 34.0, RDW 13.3, Plt Count 437 H, MPV 7.7, Neut % (Auto) 85.6 H, Lymph % (Auto) 8.3 L, [place] % (Auto) 4.0, Eos % (Auto) 1.6, Baso % (Auto) 0.4, Neut # (Auto) 21.4 H, Lymph # (Auto) 2.1, [place] # (Auto) 1.0, Eos # (Auto) 0.4, Baso # (Auto) 0.1, Total Counted 100, Neutrophils % (Manual) 85 H, Lymphocytes % (Manual) 9 L, Monocytes % (Manual) 3, Eosinophils % (Manual) 3, Platelet Estimate Slight increase, Hypochromasia 1+, Poikilocytosis 1+, Anisocytosis 1+ 05/14/22 06:55: Sodium 134 L, Potassium 3.6, Chloride 98, Carbon Dioxide 28, Anion Gap 11.6, BUN 4 L, Creatinine 0.40 L, Estimated Creat Clear 270, Estimated GFR 173, Est GFR ( Amer) 210, Glucose 111 H, Calcium 8.1 L, Total Bilirubin 0.8, AST 35, ALT 25, Alkaline Phosphatase 97, Total Protein 5.2 L, Albumin 2.6 L, Globulin 2.6, Albumin/Globulin Ratio 1.0 L I & O for Last 24 hours: Intake & Output 05/11/22 05/12/22 05/13/22 05/14/22 11:59 11:59 11:59 11:59 Intake Total 2011 2138 / 2138 900 / 900 900 / 900 Output Total 300 / 300 2450 / 2450 809 / 809 Balance 1712 / 1712 -312 / -312 91 / 91 900 / 900 Weight 227 lb 1.6 oz 219 lb 1.6 oz 213 lb 9 oz 210 lb 1 oz Narrative: Alert, talkative, no distress, no tachypnea or tachycardia. Lungs clear. Heart rate regular. Abdomen is positive bowel sounds. Is much softer than any previous exams during this hospitalization. She has much less tenderness. No edema or clubbing or rash. Assessment and Plan (1) Severe acute pancreatitis Status: Acute Category: Medical Code(s): K85.90 - Acute pancreatitis without necrosis or infection, unspecified (2) Pancreatitis, acute Status: Acute Qualifiers: Pancreatitis type: unspecified pancreatitis type Acute pancreatitis complication: no infection or necrosis Qualified Code(s): K85.90 - Acute pancreatitis without necrosis or infection, unspecified Category: Medical Code(s): K85.90 - Acute pancreatitis without necrosis or infection, unspecified (3) Class 1 obesity Status: Chronic Category: Medical Code(s): E66.9 - Obesity, unspecified (4) Hypocalcemia Status: Acute Category: Medical Code(s): E83.51 - Hypocalcemia (5) Hypokalemia Status: Acute Category: Medical Code(s): E87.6 - Hypokalemia - Assessment and plan all Dx Assessment and Plan for all problems:: Overall continues to improve. Simcarmenic
[2022-05-14 12:00] VITALS: BP 125/71; PULSE 89; RESP 18; TEMP 37.2; O2SAT 93
--- NOTE | 2022-05-14 15:56 | DIET.NUTRFU ---
per Dr Arriaga's note and patient plan was to start low fat diet, updated diet order
[2022-05-14 16:00] VITALS: BP 153/95; PULSE 92; RESP 18; TEMP 37; O2SAT 96
[2022-05-14 20:00] VITALS: BP 140/77; PULSE 103; RESP 17; TEMP 37.3; O2SAT 95
[2022-05-14 21:15] VITALS: O2SAT 95
--- NOTE | 2022-05-14 23:03 | PC.WOUNDNOTE ---
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
[2022-05-15] VITALS: BP 120/66; PULSE 93; RESP 17; TEMP 37; O2SAT 93
[2022-05-15 04:00] VITALS: BP 146/93; PULSE 100; RESP 17; TEMP 37.4; O2SAT 97
--- NOTE | 2022-05-15 04:58 | PC.NURSE ---
shift summary: pt has not rested this shift. pt is concerned about how she is going to manage the pain and dietary changes when she gets home. 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 we have discussed some possibilities that she wants to discuss with MD on AM rounds. pt has ambulated in hallway to try to get relief. abdominal pain and gas has been medicated per JAN. VSS, sats stable on room air. pt has had BM x2 this shift that she describes as still being diarrhea. pt voiding without difficulty. IV in R AC patent and flushing without difficulty.
[2022-05-15 05:00] VITALS: BMI 36.3
[2022-05-15 07:06] LABS: Basophils # 0.1 K/mm3 (0-0.2); Basophils % 0.3 % (0.1-2.0); Eosinophils # 0.4 K/mm3 (0.0-0.4); Eosinophils % 1.9 % (0.1-12.0); Hematocrit 31.8 % (37.0-47.0); Hemoglobin 10.3 g/dL (12.2-16.2); Lymphocytes # 1.9 K/mm3 (0.7-4.5); Lymphocytes % 9.1 % (10-50); Mean Corpuscular HGB Conc 32.5 g/dL (31.8-35.4); Mean Corpuscular Hemoglobin 28.7 pg (27.0-31.2); Mean Corpuscular Volume 88.5 fl (81-99); Mean Platelet Volume 7.6 fl (7.4-10.4); Monocytes # 0.9 K/mm3 (0.1-1.0); Monocytes % 4.1 % (1.7-9.3); Neutrophils # 17.4 K/mm3 (1.8-7.8); Neutrophils % 84.7 % (37.0-80.0); Platelet Count 441 K/mm3 (142-424); White Blood Count 20.6 K/mm3 (4.8-10.8)
[2022-05-15 07:08] LABS: MANUAL DIFFERENTIAL MANUAL DIFFERENTIAL (MANUAL DIFF)
[2022-05-15 07:12] LABS: Alanine Aminotransferase 26 U/L (12-78); Albumin Level 2.8 g/dl (3.5-5.0); Alkaline Phosphatase 108 U/L (38-126); Anion Gap 9.3 mEq/L (5-15); Aspartate Amino Transferase 39 U/L (14-36); Bilirubin,Total 0.7 mg/dl (0.2-1.3); Blood Urea Nitrogen 4 mg/dl (7-17); Calcium 7.9 mg/dl (8.4-10.2); Carbon Dioxide 30 mmol/L (22.0-30.0); Chloride 96 mmol/L (98-107); Creatinine Clearance Estimated 274 mL/min (50-200); Estimated Glomerular Filt Rate 173 ml/min (>60); GFR (African American) 210 ML/MIN (>60); Globulin 2.8 g/dL (1.3-3.2); Glucose 117 mg/dl (74-100); Potassium 3.3 mmoL/L (3.5-5.1); Sodium 132 mmol/L (136-145); Total Protein,Serum 5.6 g/dl (6.3-8.2)
[2022-05-15 07:25] LABS: Lymphocytes % 10 % (10-50); Monocytes % 3 % (2-9); Neutrophils % 87 % (42-76); Platelet Estimate Normal; RBC Morphology Normal; Total Cells Counted 100
[2022-05-15 08:00] VITALS: BP 129/82; PULSE 86; RESP 16; TEMP 36.9; O2SAT 95; O2SAT 97
--- NOTE | 2022-05-15 08:07 | HMH.DCSUM ---
General - General Admission date:: 05/06/22 Discharge date: 05/15/22 HPI HPI: 42-year-old white female with history of recurrent abdominal pain and noncalculus cholecystitis who underwent ERCP with sphincter of Oddi dilatation and stent placement yesterday per Dr. Guerrero in [place]. She initially had no complications but later yesterday evening on the ride home began to get intense abdominal pain in the upper epigastric area and the pain became so intense she came to the emergency department here where she was found to have severe elevations of lipase and amylase without elevations of bilirubin was diagnosed with postprocedural pancreatitis and was admitted for pain control. Hospital Course Hospital Course: Mrs. Reynolds is a 42-year-old female with a recent ERCP and sphincterotomy who developed a subsequent pancreatitis. Patient had 0 Walton criteria on admission, 3 Surinder criteria at this time, 15% mortality risk. Symptoms consistent with severe pancreatitis. Labs continue to show minor electrolyte disturbances this morning. Tolerating sips and chips. Discussed advancing diet today. Problems addressed as follows: Severe pancreatitis -Admitted with severe pancreatitis after recent ERCP and sphincterotomy. Patient initiated on aggressive fluid hydration and bowel rest. Showed very slow but gradual improvement clinically. Developed significant fluid requirement with abdominal distention and persistent pain over the first few days that gradually improved with diuresis and slow advancement of p.o. nutrition. Pain decreasing and tolerable with current oral regimen that she will be discharged home with. Liver enzymes and pancreas enzymes showed persistent trend toward normalizing with serial monitoring earlier in admission. Had required oxygen for a brief period due to significant volume overload from volume requirements. Resolved after diuresis. -Started on pantoprazole for heartburn symptoms. Plan to continue pantoprazole at discharge. -Has had significant elevation in her white cell count, no other signs of infection, and empiric antibiotics were stopped as it is believed that her white cell count at this time is related to severity of her pancreatitis but not an infectious process. -Counseled on potential time course of several months for symptoms to completely resolve. Patient states understanding. She is meeting discharge criteria including handling fluid needs enterally, tolerating low-fat/no fat diet, ambulating independently to the bathroom, meeting ADLs. Right leg pain -Present with the first few days of admission, had some tenderness to palpation in right medial thigh. Lower extremity duplex obtained to assess for DVTs, negative. Electrolyte disturbances -Slight abnormalities given fluid shifts. Replaced IV during admission. Stabilized for discharge. Medically stable for discharge home. Has tolerated advancement of diet. Transition to oral pain control regimen. Afebrile for over 48 hours. Ambulating independently to the bathroom. Objective Vital signs: Temp Pulse Resp BP Pulse Ox 99.3 F 100 H 17 146/93 H 97 05/15/22 04:00 05/15/22 04:00 05/15/22 04:00 05/15/22 04:00 05/15/22 04:00 Narrative: - Constitutional minimal distress on RA, obese - *Routine HEENT Exam Head: Present: normocephalic Eye: Present: EOMI, PERRL ENT: Present: mucous membranes moist - *Routine Neck Exam Present: supple. Absent: lymphadenopathy - *Routine Respiratory Exam Present: CTA bilaterally, good air movement bilaterally; No wheezes or crackles. - *Routine Cardiovascular Exam Present: RRR - *Routine Abdominal Exam Present: soft, normoactive bowel sounds, intervally improved tenderness (less distended) - *Routine Extremities Exam No cyanosis, clubbing; 1+ BLE edema - *Routine Skin Exam Present: warm. Absent: rash - *Routine Neurological Exam Present: alert, oriented X3 Results Labs o
[2022-05-15 08:55] LABS: Microscopic, Urine URINE MICROSCOPIC (MICROSCOPIC)
[2022-05-15 08:56] LABS: Appearance,Urine CLEAR (Clear); Bilirubin,Urine Negative (Negative); Blood, Urine TRACE-I (Negative); Color,Urine YELLOW (Yellow); Glucose,Urine (UA) Negative (Negative); Ketones,Urine 1+ (Negative); Leukocyte Esterase,Urine Negative (Negative); Nitrate,Urine Negative (Negative); Protein,Urine Negative (Negative); Urobilinogen,Urine 0.2 EU/dl (0.2)
[2022-05-15 09:17] LABS: WBC,Urine Occasional #/hpf (0-3)
[2022-05-15 09:18] LABS: Bacteria,Urine 1+ /lpf; RBC,Urine Occasional #/hpf (0-3)
[2022-05-15 16:00] VITALS: BP 140/58; PULSE 82; RESP 16; TEMP 37.2; O2SAT 95
--- NOTE | 2022-05-18 13:36 | CARE MANAGER ---
Attempted post-discharge pohone interview on this patient and patient did not answer. Will attempt again in the am, if no return call.
== END 2022-05-15 19:11 | disposition home or self-care (01) | DRG 439 ==
LOC: ER 05-06 01:39 → 2ND 05-06 01:57 → OB 05-12 21:10 → 2ND 05-12 21:31
PROVIDERS: Internal Medicine Adolescent Medicine; Admitting Provider Emergency Medicine; Emergency Provider Emergency Medicine; PCP Internal Medicine Adolescent Medicine; Visit Provider Internal Medicine Adolescent Medicine
DX: K85.90 Acute pancreatitis without necrosis or infection, unspecified (principal); J98.11 Atelectasis; E83.51 Hypocalcemia; E87.6 Hypokalemia; E11.9 Type 2 diabetes mellitus without complications; Z87.891 Personal history of nicotine dependence; E66.9 Obesity, unspecified; Z68.36 Body mass index [BMI] 36.0-36.9, adult; M79.604 Pain in right leg
CPT/HCPCS: 36415; 36569; 71045; 71046; 74177; 74178; 80048; 80053; 81001; 82150; 82962; 83690; 83735; 85007; 85025; 87040; 87070; 87086; 87205; 87506; 93005; 93970; 94761; 99285; C1751; C9803; J0696; J2405; J3475; Q9967; U0003; U0005

== ENCOUNTER → 2022-05-25 11:01 | Outpatient (CLI) | payer OTHER, SELFPAY ==
[2022-05-29 01:12] LABS: Pancreatic Elastase, Fecal 293 (>200)
== END ==
PROVIDERS: PCP Internal Medicine Adolescent Medicine; Visit Provider Internal Medicine Gastroenterology
DX: R10.11 Right upper quadrant pain (principal); R10.13 Epigastric pain; R94.8 Abnormal results of function studies of other organs and systems; R19.4 Change in bowel habit; R14.0 Abdominal distension (gaseous)
CPT/HCPCS: 82656

== ENCOUNTER → 2022-06-11 13:39 | Outpatient (CLI) | payer OTHER, SELFPAY ==
[2022-06-11 15:12] VITALS: BMI 29.4
== END ==
PROVIDERS: PCP Internal Medicine Adolescent Medicine; Visit Provider Internal Medicine Adolescent Medicine
DX: Z71.3 Dietary counseling and surveillance (principal); E74.31 Sucrase-isomaltase deficiency
CPT/HCPCS: 97802

== ENCOUNTER 2023-04-04 09:12 | Emergency (ER) | payer OTHER, SELFPAY ==
[2023-04-04] VITALS (8 sets, daily range): BP systolic 106–134; BP diastolic 46–69; PULSE 60–99; RESP 16–20; TEMP 36.7–36.8; O2SAT 86–100; BMI 27.4
--- NOTE | 2023-04-04 09:21 | HMH.EDGENADL ---
Discharge Plan Disposition Patient Disposition: Home, Self-Care Prescriptions Prescriptions: New metronidazole 500 mg tablet 500 mg PO BID 10 Days Qty: 20 0RF ondansetron 4 mg tablet,disintegrating 4 mg PO Q6H PRN (Reason: nausea and vomiting) 5 Days Qty: 20 0RF ciprofloxacin HCl 500 mg tablet 500 mg PO BID 10 Days Qty: 20 0RF No Action cetirizine 10 MG tablet 10 mg PO DAILY fluticasone propionate 9.9 ML spray,suspension 1 spray NS BID buspirone 10 MG tablet 10 mg PO BID Rx Instructions: new prescription acetaminophen 325 MG tablet 650 mg PO Q4HP PRN (Reason: Fever Or Mild Pain) 0RF oxycodone-acetaminophen 1 EACH tablet 1 each PO Q6HP PRN (Reason: Severe Pain) 5 Days Qty: 20 0RF pantoprazole 40 MG tablet,delayed release (DR/EC) 40 mg PO DAILY 30 Days Qty: 30 1RF ondansetron 4 MG tablet,disintegrating 4 mg PO TIDP PRN (Reason: Nausea) 5 Days Qty: 15 1RF metformin 500 MG tablet extended release 24 hr 500 mg PO HS Hold Instructions: until discussed at follow-up Referrals Follow up/Referrals: Joaquin Arriaga MD [Primary Care Provider] - See instructions Activity Restrictions/Add. Instructions Additional Instructions/Restrictions: Your ongoing diarrhea as well as the CT findings are suggestive of a diagnosis of colitis. This is most likely an infectious is not consistent with ischemic colitis but cannot rule out inflammatory bowel disease as well. I would recommend you follow-up with a dip stand loader upon resolution for an outpatient colonoscopy. Return with any severe worsening of your abdominal pain or high fevers or blood in your stool. A prescription of antibiotics has been sent to your pharmacy in addition to nausea medication. I would also recommend that you still try to provide a stool sample for pathogen testing. 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 She also has significant abdominal cramping and tenderness. No blood in her stool or high fevers. No other urinary symptoms and review of systems otherwise negative. Related Data Home Medications Medication Instructions Recorded Confirmed metformin 500 mg tablet,extended 500 mg PO HS Diabetes 05/07/21 05/06/22 release 24 hr buspirone 10 mg tablet 10 mg PO BID Anxiety 05/06/22 05/06/22 cetirizine 10 mg tablet 10 mg PO DAILY allergies 05/06/22 05/06/22 fluticasone propionate 50 1 spray intranasal BID allergies 05/06/22 05/06/22 mcg/actuation nasal spray,suspension Previous Rx's Medication Instructions Recorded acetaminophen 325 mg tablet 650 mg PO Q4HP PRN Fever Or Mild 05/15/22 Pain ondansetron 4 mg disintegrating 4 mg PO TIDP PRN Nausea 5 days #15 05/15/22 tablet tabs oxycodone-acetaminophen 5 mg-325 1 each PO Q6HP PRN Severe Pain 5 05/15/22 mg tablet days #20 tabs pantoprazole 40 mg tablet,delayed 40 mg PO DAILY 30 days #30 tabs 05/15/22 release ciprofloxacin HCl 500 mg tablet 500 mg PO BID 10 days #20 tabs 04/04/23 metronidazole 500 mg tablet 500 mg PO BID 10 days #20 tabs 04/04/23 ondansetron 4 mg disintegrating 4 mg PO Q6H PRN nausea and 04/04/23 tablet vomiting 5 days #20 tabs Allergies Allergy/AdvReac Type Severity Reaction Status Date / Time prednisone Allergy Intermediate Verified 04/04/23 09:46 Penicillins [PENICILLINS] Allergy Unknown V
--- NOTE | 2023-04-04 09:33 | CT_ITS ---
PROCEDURE INFORMATION: Exam: CT Abdomen And Pelvis With Contrast Exam date and time: 04/04/2023 10:53 AM Age: 43 years old Clinical indication: Abdominal pain; Generalized; Additional info: Diffuse abd pain, diarrhea TECHNIQUE: Imaging protocol: Computed tomography of the abdomen and pelvis with contrast. Radiation optimization: All CT scans at this facility use at least one of these dose optimization techniques: automated exposure control; mA and/or kV adjustment per patient size (includes targeted exams where dose is matched to clinical indication); or iterative reconstruction. Contrast material: ISOVUE; Contrast volume: 75 ml; Contrast route: IV; REPORTING DATA: Count of CT and Cardiac NM exams in prior 12 months: This patient has received 2 known CTs and 0 known cardiac nuclear medicine studies in the 12 months prior to the current study. COMPARISON: CT ABDOMEN PELVIS WO/W CON 05/13/2022 11:35 AM FINDINGS: Lungs: Right lower lobe granuloma noted. Liver: No focal hepatic lesions. Gallbladder and bile ducts: Gallbladder is distended without radiopaque cholelithiasis. No biliary ductal dilation. Pancreas: No peripancreatic fluid stranding. No main pancreatic ductal dilation. Spleen: No splenomegaly. Adrenal glands: The adrenal glands are normal. Kidneys and ureters: Nephrograms are symmetric. No nephrolithiasis or hydroureteronephrosis on either side. No solid lesions Stomach and bowel: No bowel wall thickening or distention. Liquid stool noted in the ascending and transverse colon can be seen in the context of colitis. Appendix: There has been an appendectomy. Intraperitoneal space: There is no evidence of free intraperitoneal or pelvic fluid. Small amount of pelvic free fluid. Vasculature: Aorta is nonaneurysmal. Lymph nodes: No evidence of retroperitoneal or mesenteric lymphadenopathy. Urinary bladder: Urinary bladder is unremarkable. Reproductive: Unremarkable as visualized. Bones/joints: Unremarkable. No acute fracture. Soft tissues: Unremarkable. IMPRESSION: Liquid stool noted in the ascending and transverse colon can be seen in the context of colitis.
[2023-04-04 09:52] LABS: Basophils % 0.3 % (0.1-2.0); Eosinophils # 0.1 K/mm3 (0.0-0.4); Eosinophils % 1.6 % (0.1-12.0); Hematocrit 45.1 % (37.0-47.0); Hemoglobin 14.6 g/dL (12.2-16.2); Lymphocytes # 1.7 K/mm3 (0.7-4.5); Lymphocytes % 21.4 % (10-50); Mean Corpuscular HGB Conc 32.3 g/dL (31.8-35.4); Mean Corpuscular Hemoglobin 28.3 pg (27.0-31.2); Mean Corpuscular Volume 87.7 fl (81-99); Mean Platelet Volume 7.7 fl (7.4-10.4); Monocytes # 0.7 K/mm3 (0.1-1.0); Neutrophils # 5.2 K/mm3 (1.8-7.8); Neutrophils % 67.7 % (37.0-80.0); Platelet Count 248 K/mm3 (142-424); Red Blood Count 5.14 M/mm3 (4.20-5.40); Red Cell Distribution Width 13.6 % (11.5-17.5); White Blood Count 7.7 K/mm3 (4.8-10.8)
[2023-04-04 09:54] LABS: Chloride 102 mmol/L (98-107); Sodium 137 mmol/L (136-145)
[2023-04-04 09:55] LABS: Potassium 4.2 mmoL/L (3.5-5.1)
[2023-04-04 09:57] LABS: Alanine Aminotransferase 22 U/L (12-78); Albumin Level 4.2 g/dl (3.5-5.0); Albumin/Globulin Ratio 1.4 (1.1-1.8); Alkaline Phosphatase 63 U/L (38-126); Anion Gap 12.2 mEq/L (5-15); Aspartate Amino Transferase 29 U/L (14-36); Bilirubin,Total 0.7 mg/dl (0.2-1.3); Blood Urea Nitrogen 20 mg/dl (7-17); Calcium 8.9 mg/dl (8.4-10.2); Carbon Dioxide 27 mmol/L (22.0-30.0); Creatinine Clearance Estimated 120 mL/min (50-200); Estimated Glomerular Filt Rate 90 ml/min (>60); GFR (African American) 109 ML/MIN (>60); Glucose 85 mg/dl (74-100); Lipase 95 U/L (23-300); Phosphorous 3.8 mg/dl (2.5-4.5); Total Protein,Serum 7.2 g/dl (6.3-8.2)
[2023-04-04 09:58] LABS: Magnesium 1.7 mg/dl (1.6-2.3)
[2023-04-04 10:01] LABS: Lactic Acid 0.7 mmol/L (0.7-2.1)
[2023-04-04 10:05] LABS: Urine Pregnancy, HCG Qual. Negative (Negative)
--- NOTE | 2023-04-04 10:23 | PC.NURSE ---
ROUNDED ON PT NO COMPLAINTS AT THIS TIME
--- NOTE | 2023-04-04 11:42 | PC.NURSE ---
Pt up to restroom
== END 2023-04-04 12:13 | disposition home or self-care (01) ==
PROVIDERS: Emergency Provider Student in an Organized Health Care Education/Training Program; PCP Internal Medicine Adolescent Medicine
DX: R10.9 Unspecified abdominal pain (principal); K52.9 Noninfective gastroenteritis and colitis, unspecified
CPT/HCPCS: 74177; 80053; 81025; 83605; 83690; 83735; 84100; 85025; 96361; 96374; 96375; 99285; J2405; Q9967

== ENCOUNTER → 2023-04-08 07:51 | Outpatient (CLI) | payer OTHER, SELFPAY ==
[2023-04-08 07:57] LABS: Adenovirus F 40/41, stool Not Detected (NotDetected); Astrovirus Not Detected (NotDetected); Cryptosporidium Not Detected (NotDetected); Cyclospora Cayetanesis Not Detected (NotDetected); Entamoeba histolytica Not Detected (NotDetected); Enteroaggregative E coli Not Detected (NotDetected); Enteropathogenic E coli Not Detected (NotDetected); Enterotoxigenic E coli Not Detected (NotDetected); Giardia lamblia Not Detected (NotDetected); Norovirus Not Detected (NotDetected); Rotavirus A Not Detected (NotDetected); Sapovirus Not Detected (NotDetected); Shiga-like toxin E coli Not Detected (NotDetected); Shigella Enterovasive E coli Not Detected (NotDetected)
[2023-04-08 07:59] LABS: Campylobacter Not Detected (NotDetected); Clostridium Difficile A/B, PCR Not Detected (NotDetected); Plesimonas Shigalloides, PCR Not Detected (NotDetected); Salmonella, PCR Not Detected (NotDetected); Vibrio Cholerae Not Detected (NotDetected); Vibrio, PCR Not Detected (NotDetected); Yersinia Entercolitica, PCR Not Detected (NotDetected)
== END ==
PROVIDERS: PCP Internal Medicine Adolescent Medicine; Visit Provider Student in an Organized Health Care Education/Training Program
DX: R19.7 Diarrhea, unspecified (principal)
CPT/HCPCS: 87507

== ENCOUNTER 2023-12-07 11:40 | Outpatient (CLI) | payer OTHER, SELFPAY ==
[2023-12-07 12:23] LABS: Basophils # 0.1 K/mm3 (0-0.2); Basophils % 0.9 % (0.1-2.0); Eosinophils # 0.1 K/mm3 (0.0-0.4); Eosinophils % 1.4 % (0.1-12.0); Hematocrit 42.3 % (37.0-47.0); Hemoglobin 14.3 g/dL (12.2-16.2); Lymphocytes # 2.8 K/mm3 (0.7-4.5); Lymphocytes % 34.3 % (10-50); Mean Corpuscular HGB Conc 33.7 g/dL (31.8-35.4); Mean Corpuscular Hemoglobin 29.6 pg (27.0-31.2); Mean Corpuscular Volume 87.7 fl (81-99); Mean Platelet Volume 7.9 fl (7.4-10.4); Monocytes # 0.4 K/mm3 (0.1-1.0); Monocytes % 4.8 % (1.7-9.3); Neutrophils # 4.8 K/mm3 (1.8-7.8); Neutrophils % 58.6 % (37.0-80.0); Platelet Count 271 K/mm3 (142-424); Red Blood Count 4.82 M/mm3 (4.20-5.40); Red Cell Distribution Width 13.5 % (11.5-17.5); White Blood Count 8.1 K/mm3 (4.8-10.8)
[2023-12-07 12:44] LABS: Chloride 106 mmol/L (98-107); Sodium 137 mmol/L (136-145)
[2023-12-07 12:47] LABS: Alanine Aminotransferase 41 U/L (12-78); Albumin Level 4.3 g/dl (3.5-5.0); Albumin/Globulin Ratio 1.6 (1.1-1.8); Alkaline Phosphatase 68 U/L (38-126); Aspartate Amino Transferase 35 U/L (14-36); Bilirubin,Total 0.5 mg/dl (0.2-1.3); Blood Urea Nitrogen 17 mg/dl (7-17); Carbon Dioxide 24 mmol/L (22.0-30.0); Estimated Glomerular Filt Rate 133 ml/min (>60); GFR (African American) 161 ML/MIN (>60); Globulin 2.7 g/dL (1.3-3.2)
[2023-12-07 12:48] LABS: Calcium 9.3 mg/dl (8.4-10.2); Glucose 93 mg/dl (74-100)
[2023-12-07 12:53] LABS: C-Reactive Protein 3.6 mg/L (0-4)
[2023-12-07 13:04] LABS: Erythrocyte Sedimentation Rate 11 mm/hr (0-20)
[2023-12-07 13:18] LABS: Thyroid Stimulating Hormone 1.03 uIU/mL (0.465-4.68)
[2023-12-07 13:55] LABS: Hemoglobin A1C 5.1 % (4.0-6.0)
[2023-12-08 10:03] LABS: RA Latex Turbid. <10.0 IU/mL (<14.0)
[2023-12-08 12:44] LABS: Anti-Cyclic Citrullinated Pept 8 units (0-19)
[2023-12-11 19:06] LABS: Antinuclear Antibodies, IFA Negative (.)
== END 2023-12-07 23:59 ==
PROVIDERS: PCP Internal Medicine Adolescent Medicine; Visit Provider Nurse Practitioner Family
DX: E28.2 Polycystic ovarian syndrome (principal); M25.50 Pain in unspecified joint; R21 Rash and other nonspecific skin eruption
CPT/HCPCS: 36415; 80053; 83036; 84443; 85025; 85651; 86038; 86140; 86200; 86431

== ENCOUNTER 2023-12-30 08:15 | Outpatient (CLI) | payer OTHER, SELFPAY ==
--- NOTE | 2023-12-30 08:15 | MM_ITS ---
PROCEDURE INFORMATION: Exam: MG Bilateral Screening 3D Mammography Exam date and time: 12/30/2023 8:11 AM Age: 43 years old Clinical indication: Screening examination TECHNIQUE: Imaging protocol: Bilateral Screening tomosynthesis and 2D mammography including computer-aided detection (CAD) when performed. COMPARISON: 1. MG MM DIG SCREENING MAMM BI W/CAD 07/24/2021 8:53 AM 2. MG MM DIG SCREENING MAMM BI W/CAD 08/29/2019 5:42 PM FINDINGS: MAMMOGRAPHY: Breast composition: The breasts are heterogeneously dense, which may obscure small masses. Mass: None. Architectural distortion: None. Calcifications: No suspicious calcifications. Asymmetric density: None. Skin thickening: None. Axillary adenopathy: None. IMPRESSION: No mammographic evidence of malignancy. Annual screening is recommended unless otherwise clinically indicated. ASSESSMENT: BI-RADS Category 1: Negative
== END 2023-12-30 23:59 ==
LOC: RAD 08:15
PROVIDERS: PCP Internal Medicine Adolescent Medicine; Visit Provider Obstetrics & Gynecology
DX: Z12.31 Encounter for screening mammogram for malignant neoplasm of breast (principal)
CPT/HCPCS: 77063; 77067

== ENCOUNTER 2024-08-15 15:30 | Outpatient (POV) | payer OTHER, SELFPAY | END 2024-08-15 23:59 | disposition home or self-care (01) | LOC: SC 08-16 06:46 | PROVIDERS: Visit Provider Dermatology | DX: Z00.00 Encounter for general adult medical examination without abnormal findings (principal) ==

== ENCOUNTER 2024-08-21 11:13 | Emergency (ER) | payer OTHER, SELFPAY ==
[2024-08-21 11:20] VITALS: BP 127/85; PULSE 73; RESP 20; TEMP 36.6; O2SAT 99; BMI 31.9
--- NOTE | 2024-08-21 11:25 | ED_ITS ---
Discharge Plan Disposition Patient Disposition: Home, Self-Care Condition: Good Prescriptions Prescriptions: New triamcinolone acetonide 0.1 % cream 1 applic topical BID PRN (Reason: itching) Qty: 30 2RF methylprednisolone 4 mg Tablets,Dose Pack 4 mg PO DIRECTED 6 Days Qty: 21 0RF Rx Instructions: Take 1 pack as directed for 6 days hydroxyzine pamoate [Vistaril] 25 mg capsule 25 mg PO Q6H PRN (Reason: itching) Qty: 30 0RF No Action metformin 500 MG tablet extended release 24 hr 500 mg PO HS Referrals Follow up/Referrals: Joaquin Arriaga MD [Primary Care Provider] - See instructions Activity Restrictions/Add. Instructions Additional Instructions/Restrictions: Try to identify and avoid contact with the offending substance. Don't start the oral steroids until tomorrow. The hydroxyzine (vistaril) will make you drowsy, so don't drive or operate heavy machinery after taking it. Don't put the topical steroids (triamcinolone) on your face or your groin. Follow up with your regular doctor. GO TO THE ER FOR ANY WORSENING SYMPTOMS OR CONCERNS Clinical Impressions Clinical Impression: Contact dermatitis Qualifiers: Contact dermatitis type: allergic Contact dermatitis trigger: unspecified trigger Qualified Code(s): L23.9 - Allergic contact dermatitis, unspecified cause Instructions Patient Instructions: DI for Contact Dermatitis, Triamcinolone Topical, Methylprednisolone, Hydroxyzine, Dexamethasone Injection Print Language Print Language: Panamanian Discharge ED Provider: Aleks aCbral [facility] General Stated complaint: itching rash Time Seen by Provider: 08/21/24 11:25 History of Present Illness Provider Complaint: She states that for the past 2 days she has had a very itchy rash on her arms and legs. She states that she has had a similar reaction before when she had been in contact with rag weed. She denies any shortness of breath, swelling of mouth or throat, and chest tightness. Related Data Home Medications ?Medication ?Instructions ?Recorded ?Confirmed metformin 500 mg tablet,extended 500 mg PO HS Diabetes 05/07/21 01/03/24 release 24 hr Previous Rx's ?Medication ?Instructions ?Recorded hydroxyzine pamoate 25 mg capsule 25 mg PO Q6H PRN itching #30 caps 08/21/24 (Vistaril) methylprednisolone 4 mg tablets in 4 mg PO DIRECTED 6 days #21 tabs 08/21/24 a dose pack triamcinolone acetonide 0.1 % 1 applic topical BID PRN itching 08/21/24 topical cream #30 grams Allergies Allergy/AdvReac Type Severity Reaction Status Date / Time prednisone Allergy Intermediate Verified 01/03/24 08:46 Penicillins [PENICILLINS] Allergy Unknown Verified 01/03/24 08:46 [facility] Disclaimer: The information contained in this section may have been updated after the patient was seen, as this information can be updated by other users. Medical History (Updated 08/21/24 @ 11:30 by Aleks Cabral APRN) Hypokalemia Pancreatitis, acute Back pain Endometriosis determined by laparoscopy PCOS (polycystic ovarian syndrome) Surgical History (Updated 01/03/24 @ 08:47 by MARILYNN Roldan) History of laparoscopy History of endometrial ablation Family History (Updated 01/03/24 @ 09:00 by MARILYNN Roldan) Grandmother Cancer Family/Other Cancer Grandfather Cancer Social History Smoking Status: Former smoker tobacco type: cigarettes second hand exposure: No alcohol intake: current alcohol intake frequency: holidays/special occasions only substance use type: denies use current occupational status: unemployed Travel in the last 8 weeks: None household members: spouse and children housing: house 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 current occupational exposures/hazards: No ROS Obtained: Yes All systems reviewed & no additional complaints except as documented Constitutional Constitutional: Denies chills and Denies fever(s) Eyes Eyes: Denies eye discharge ENT Ears, Nose, Mouth, and Throat: Denies dizziness, Denies otalgia and Denies sore throat Cardiovascular Cardiovascular: Denies chest pain Respiratory Respiratory: Denies shortness of breath, Denies chest congestion, Denies cough, Denies stridor and Denies wheezing Gastrointestinal Gastrointestingal: Denies nausea or vomiting Musculoskeletal Musculoskeletal: Reports system reviewed and no additional complaints, except as documented and Denies arthralgias Integumentary/Breasts Skin/Breast: Reports as per HPI and Reports rash Neurologic Neurologic: Denies dizziness and Denies paresthesias Allergic/Immunologic Allergic/Immunologic: Denies wheezing Physical Exam General General appearance: alert and in no apparent distress Head Head exam: atraumatic, normocephalic and normal inspection Eye Eye exam: Present normal appearance, PERRL and EOMI ENT ENT exam: Present normal exam, normal oropharynx, mucous membranes moist, TM's normal bilaterally and normal external ear exam Neck Neck exam: Present normal inspection, full ROM and trachea midline; Absent meningismus or lymphadenopathy Chest Chest inspection: Present normal inspection and symmetric chest wall rise; Absent tenderness Respiratory Respiratory exam: Present normal lung sounds bilaterally; Absent respiratory distress Cardiovascular Cardiovascular exam: Present regular rate and normal rhythm; Absent JVD Abdominal Exam Abdominal exam: Present soft and normal bowel sounds; Absent distention, tenderness or guarding Extremities Exam Extremities exam: Present normal inspection, full ROM and normal capillary refill; Absent calf tenderness Back Exam Back exam: Present normal inspection; Absent tenderness Neurological Exam Neurological exam: Present alert and oriented X3 Psychiatric Psychiatric exam: Present normal affect and normal mood Skin Skin exam: Present rash (there are maculopapular lesions on her forearms and calfs. no open wounds, no drainage. ) Lymphatic Lymphatic Findings: no adenopathy Medical Decision Making Medical Records Medical records reviewed: No I reviewed the patient's medical records. Screening: Per USPSTF and CDC recommendations, given the prevalence of disease in our region, it is our hospital?s policy to screen for HIV and viral Hepatitis for all patients aged 18 and over and those with ongoing risk factors. Jeison Inquiry Pt receiving controlled substance: No
[2024-08-21] MEDS: DEXAMETHASONE 4MG/ML 1ML VIAL 10 MG IM (11:30)
[2024-08-21 11:34] VITALS: BP 127/85; PULSE 73; RESP 20; TEMP 36.6; O2SAT 99
== END 2024-08-21 11:39 | disposition home or self-care (01) ==
PROVIDERS: Emergency Provider Nurse Practitioner Family; PCP Internal Medicine Adolescent Medicine
DX: R21 Rash and other nonspecific skin eruption (principal); L23.9 Allergic contact dermatitis, unspecified cause
CPT/HCPCS: 96372; 99212; G0381; J1100

== ENCOUNTER 2024-09-02 13:10 | Emergency (ER) | payer OTHER, SELFPAY ==
[2024-09-02 13:55] VITALS: BP 121/82; PULSE 71; RESP 19; TEMP 37.1; O2SAT 98; BMI 31.9
--- NOTE | 2024-09-02 14:23 | EXP.UTC ---
Discharge Plan Disposition Patient Disposition: Home, Self-Care Condition: Good Prescriptions Prescriptions: New azithromycin [Zithromax Z-Joao] 250 mg tablet See Rx Instructions .ROUTE .COMPLEX 5 Days Qty: 6 0RF Rx Instructions: For 250 mg dose pack: take 500 mg today (day 1), then 250 mg for 4 days (days 2-5) No Action triamcinolone acetonide 0.1 % cream 1 applic TOPICAL DAILY Patient Comments: APPLY CREAM EXTERNALLY TWICE DAILY NEEDED FOR ITCHING Dupixent Pen 300 mg/2 mL pen injector 300 mg SQ WEEKLY Referrals Follow up/Referrals: Joaquin Arriaga MD [Primary Care Provider] - See instructions Activity Restrictions/Add. Instructions Additional Instructions/Restrictions: *Monitor Temp, Over the counter Motrin or Tylenol as directed/as needed Tylenol every 4 hours and Motrin every 6 hours (as long as your family doctor has told you that you can take it) for fever or pain. and straight to ER if unable to lower temp less than 101.0 after medication given *Warm salt water gargles may help to soothe the throat *Throat Lozenges? *Warm fluids like tea with honey may help to soothe the throat? *Sleep elevated *Humidifier/Vaporizer *If you did not take Penicillin shot or was unable to, start taking antibiotic immediately and make sure that you take it for the FULL length of time although you should start to feel better in 24-48 hours *change toothbrush and toothpaste 24-48 hours after starting to take antibiotics so you do not reinfect yourself Monitor Temp. Tylenol and/or Ibuprofen as needed. ER if fever is no less than 101 despite alternating Tylenol and Ibuprofen * Encourage fluids, water, Gatorade, powerade, pedialyte if infant/toddler/or child *Cold fluids, popsicles and ice cream may feel good on his throat Clinical Impressions Clinical Impression: Strep throat Instructions Patient Instructions: DI for Strep Throat, Azithromycin Print Language Print Language: Swedish Discharge ED Provider: Tawana Solis [facility] [place] HPI General Stated complaint: sore throat Mode of Arrival: Ambulatory Source of Information: Patient Limitations: No Limitations Time Seen by Provider: 09/02/24 14:23 Description of Symptoms (Recalled from Triage Doc. by RN): PATIENT C/O SORE THROAT, EAR PAIN AND HEADACHE X 2 DAYS. RECENTLY EXPOSED TO STREP HEENT Symptoms (Recalled from RN notes): Yes Resp Symptoms (Recalled from RN notes): No Skin Symptoms (Recalled from RN notes): No MS Symptoms (Recalled from RN notes): No Functional Status (Recalled from RN notes): WNL History of Present Illness Provider Complaint: Patient states that recently had strep throat and she thinks she may have it now too States that she has been having sore throat and pain in her ears Related Data Home Medications ?Medication ?Instructions ?Recorded ?Confirmed dupilumab 300 mg/2 mL subcutaneous 300 mg SQ WEEKLY 09/02/24 09/02/24 pen injector (Dupixent) triamcinolone acetonide 0.1 % 1 applic topical DAILY 09/02/24 09/02/24 topical cream Previous Rx's ?Medication ?Instructions ?Recorded azithromycin 250 mg tablet See Rx Instructions PO .COMPLEX 5 09/02/24 (Zithromax Z-Joao) days #6 tabs Allergies Allergy/AdvReac Type Severity Reaction Status Date / Time prednisone Allergy Intermediate Verified 01/03/24 08:46 Penicillins [PENICILLINS] Allergy Unknown Verified 01/03/24 08:46 Worker's Comp Is this a Worker's Comp case?: No [facility] Disclaimer: The information contained in this section may have been updated after the patient was seen, as this information can be updated by other users. Medical History (Updated 09/02/24 @ 14:26 by Tawana Solis APRN) Hypokalemia Pancreatitis, acute Back pain Endometriosis determined by laparoscopy PCOS (polycystic ovarian syndrome) Surgical History (Updated 01/03/24 @ 08:47 by MARILYNN Roldan) History of laparoscopy History of endometrial ablation Family History (Updated 01/03/24 @ 09:00 by MARILYNN Roldan) Grandmother Cancer Family/Other Cancer Grandfather Cancer Social History Smoking Status: Former smoker tobacco type: cigarettes second hand exposure: No alcohol intake: current alcohol intake frequency: holidays/special occasions only substance use type: denies use current occupational status: unemployed Travel in the last 8 weeks: None household members: spouse and children housing: house 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 current occupational exposures/hazards: No ROS Obtained: Yes All systems reviewed & no additional complaints except as documented and Yes Systems reviewed as appropriate & no additional complaints except as documented Constitutional Constitutional: Reports system reviewed and no additional complaints, except as documented and Reports as per HPI Eyes Eyes: Reports system reviewed and no additional complaints, except as documented and Reports as per HPI ENT Ears, Nose, Mouth, and Throat: Reports system reviewed and no additional complaints, except as documented, Reports as per HPI, Reports otalgia and Reports sore throat Cardiovascular Cardiovascular: Reports system reviewed and no additional complaints, except as documented and Reports as per HPI Respiratory Respiratory: Reports system reviewed and no additional complaints, except as documented and Reports as per HPI Gastrointestinal Gastrointestingal: Reports system reviewed and no additional complaints, except as documented and as per HPI Physical Exam General General appearance: alert and in no apparent distress ENT ENT exam: Present mucous membranes moist and TM's normal bilaterally Expanded ENT Exam Throat exam: Present tonsillar erythema Respiratory Respiratory exam: Present normal lung sounds bilaterally; Absent respiratory distress or wheezes Cardiovascular Cardiovascular exam: Present regular rate, normal rhythm and normal heart sounds Abdominal Exam Abdominal exam: Present soft and normal bowel sounds; Absent distention or tenderness Neurological Exam Neurological exam: Present alert, oriented X3 and normal gait Medical Decision Making Medical Records Screening: Per USPSTF and CDC recommendations, given the prevalence of disease in our region, it is our hospital?s policy to screen for HIV and viral Hepatitis for all patients aged 18 and over and those with ongoing risk factors. Jeison Inquiry Pt receiving controlled substance: No Jeison was queried for this patient: No Vital Signs: 09/02/24 13:55 Temperature 98.7 F Temperature Source Oral Pulse Rate [Left Brachial] 71 Respiratory Rate 19 Blood Pressure [Left Arm] 121/82 Blood Pressure Mean [Left Arm] 95 Blood Pressure Source [Left Arm] Automatic Cuff Blood Pressure Position [Left Arm] Sitting 02 Sat by Pulse Oximetry 98 Oxygen Delivery Method Room Air Lab Data Lab results reviewed: Yes I reviewed the patient's lab results.
[2024-09-02 14:24] LABS: UTC Strep Screen (Rapid) Positive (Negative)
[2024-09-02 14:29] VITALS: BP 121/82; PULSE 71; RESP 19; TEMP 37.1; O2SAT 98
== END 2024-09-02 14:35 | disposition home or self-care (01) ==
PROVIDERS: Emergency Provider Nurse Practitioner; PCP Internal Medicine Adolescent Medicine
DX: J02.0 Streptococcal pharyngitis (principal)
CPT/HCPCS: 87880; 99213; G0381

== ENCOUNTER 2024-10-25 08:30 | Emergency (ER) | payer OTHER, SELFPAY ==
--- NOTE | 2024-10-25 08:35 | ED_ITS ---
Discharge Plan Disposition Patient Disposition: Home, Self-Care Condition: Good Prescriptions Prescriptions: New ondansetron 4 mg Tablet,Disintegrating 4 mg PO Q8H PRN (Reason: Nausea) Qty: 12 0RF No Action Dupixent Pen 300 mg/2 mL pen injector 300 mg SQ WEEKLY Referrals Follow up/Referrals: Joaquin Arriaga MD [Primary Care Provider] - See instructions Activity Restrictions/Add. Instructions Additional Instructions/Restrictions: Drink plenty of fluids. Take tylenol or ibuprofen for pain or fever. Take the medications as directed. Follow up with your regular doctor. GO TO THE ER FOR ANY WORSENING SYMPTOMS Clinical Impressions Clinical Impression: Gastroenteritis Stand Alone Forms Stand Alone Forms: Work/School Release Instructions Patient Instructions: Viral Gastroenteritis, DI for Viral Gastroenteritis -- Adult, Ondansetron Print Language Print Language: Maori Discharge ED Provider: Aleks Cabral [facility] [place] HPI General Stated complaint: Sore throat, body aches, nausea, diarrhea, abd jessica Time Seen by Provider: 10/25/24 08:34 Related Data Home Medications ?Medication ?Instructions ?Recorded ?Confirmed dupilumab 300 mg/2 mL subcutaneous 300 mg SQ WEEKLY 09/02/24 10/25/24 pen injector (Dupixent) Previous Rx's ?Medication ?Instructions ?Recorded ondansetron 4 mg disintegrating 4 mg PO Q8H PRN Nausea #12 tabs 10/25/24 tablet Allergies Allergy/AdvReac Type Severity Reaction Status Date / Time prednisone Allergy Intermediate Verified 01/03/24 08:46 Penicillins (PENICILLINS) Allergy Unknown Verified 01/03/24 08:46 [facility] Disclaimer: The information contained in this section may have been updated after the patient was seen, as this information can be updated by other users. Medical History (Updated 10/25/24 @ 09:28 by Aleks Cabral APRN) Hypokalemia Pancreatitis, acute Back pain Endometriosis determined by laparoscopy PCOS (polycystic ovarian syndrome) Surgical History (Updated 01/03/24 @ 08:47 by MARILYNN Roldan) History of laparoscopy History of endometrial ablation Family History (Updated 01/03/24 @ 09:00 by MARILYNN Roldan) Grandmother Cancer Family/Other Cancer Grandfather Cancer Social History Smoking Status: Former smoker tobacco type: cigarettes second hand exposure: No alcohol intake: current alcohol intake frequency: holidays/special occasions only substance use type: denies use current occupational status: unemployed Travel in the last 8 weeks: None household members: spouse and children housing: house 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 current occupational exposures/hazards: No Have you lived/traveled outside [place] in past 30 days?: No Contact w/someone who lives/traveled outside [place] past 30 days?: No Exposure to someone with infectious disease in past 14 days?: No Do you have a fever (greater than 100.4 F or 38 C)?: No Have you tested positive for COVID-19: No Exposed to someone with COVID-19 in past 14 days?: No Do you have a sore throat?: Yes Do you have a cough?: Yes Do you have any weakness?: No Do you have any diarrhea?: Yes Are you experiencing any unusual bleeding?: No Do you have any muscle aches/pain?: Yes Do you have any abdominal pain?: No Are you experiencing loss of taste or smell?: No ROS Obtained: Yes All systems reviewed & no additional complaints except as documented Constitutional Constitutional: Denies chills, Denies fever(s) and Reports poor appetite ENT Ears, Nose, Mouth, and Throat: Denies dizziness and Denies sore throat Cardiovascular Cardiovascular: Denies dyspnea Respiratory Respiratory: Denies chest congestion, Denies cough and Denies dyspnea Gastrointestinal Gastrointestingal: Reports as per HPI, diarrhea, nausea and vomiting; Denies abdominal pain Genitourinary Female Genitourinary: Denies difficulty voiding, Denies dysuria, Denies hematuria, Denies urinary frequency, Denies urinary incontinence, Denies urinary hesitancy and Denies urinary urgency Musculoskeletal Musculoskeletal: Denies arthralgias Integumentary/Breasts Skin/Breast: Denies rash Neurologic Neurologic: Denies dizziness Physical Exam General General appearance: alert and in no apparent distress Head Head exam: atraumatic and normocephalic Eye Eye exam: Present normal appearance, PERRL and EOMI ENT ENT exam: Present normal exam, normal oropharynx, mucous membranes moist, TM's normal bilaterally and normal external ear exam Neck Neck exam: Present normal inspection, full ROM and trachea midline; Absent tenderness, meningismus or lymphadenopathy Chest Chest inspection: Present normal inspection and symmetric chest wall rise; Absent tenderness, rash or abscess Respiratory Respiratory exam: Present normal lung sounds bilaterally; Absent respiratory distress, wheezes or stridor Cardiovascular Cardiovascular exam: Present regular rate and normal rhythm; Absent irregular rhythm, systolic murmur, diastolic murmur or JVD Abdominal Exam Abdominal exam: Present soft and hyperactive bowel sounds; Absent distention, tenderness, guarding, rebound, rigidity, psoas sign, obturator sign, heel tap sign, Hinton's sign, Rovsing's sign or tenderness at McBurney's Point Extremities Exam Extremities exam: Present normal inspection and full ROM; Absent tenderness Back Exam Back exam: Present normal inspection and full ROM; Absent tenderness, CVA tenderness (R) or CVA tenderness (L) Neurological Exam Neurological exam: Present alert, oriented X3 and CN II-XII intact Psychiatric Psychiatric exam: Present normal affect and normal mood Skin Skin exam: Present warm, dry, intact and normal color Lymphatic Lymphatic Findings: no adenopathy Medical Decision Making Medical Records Medical records reviewed: No I reviewed the patient's medical records. Screening: Per USPSTF and CDC recommendations, given the prevalence of disease in our region, it is our hospital?s policy to screen for HIV and viral Hepatitis for all patients aged 18 and over and those with ongoing risk factors. Jeison Inquiry Pt receiving controlled substance: No Lab Data Lab results reviewed: Yes I reviewed the patient's lab results.
[2024-10-25 08:49] VITALS: BP 133/82; PULSE 71; RESP 20; TEMP 36.7; O2SAT 97; BMI 32.8
[2024-10-25 08:54] LABS: UTC Strep Screen (Rapid) Negative (Negative)
[2024-10-25 08:55] LABS: UTC Influenza A Antigen Negative (Negative); UTC Influenza B Antigen Negative (Negative)
[2024-10-25 09:30] VITALS: BP 133/82; PULSE 71; RESP 20; TEMP 36.7
== END 2024-10-25 09:31 | disposition home or self-care (01) ==
PROVIDERS: Emergency Provider Nurse Practitioner Family; PCP Internal Medicine Adolescent Medicine
DX: K52.9 Noninfective gastroenteritis and colitis, unspecified (principal)
CPT/HCPCS: 87804; 87880; 99213; G0381

== ENCOUNTER 2024-11-21 09:36 | Outpatient (CLI) | payer OTHER, SELFPAY | END 2024-11-21 23:59 | disposition home or self-care (01) | LOC: LAB 09:37 | PROVIDERS: PCP Internal Medicine Adolescent Medicine; Visit Provider Internal Medicine Adolescent Medicine | DX: J02.9 Acute pharyngitis, unspecified (principal) | CPT/HCPCS: 87070 ==

== ENCOUNTER 2025-01-18 15:41 | Outpatient (CLI) | payer OTHER, SELFPAY ==
--- NOTE | 2025-01-18 15:47 | XR_ITS ---
FINAL REPORT CLINICAL HISTORY: CHEST WALL PAIN/PERSISTENT COUGH COMPARISON: Chest x-ray 05/08/2022 FINDINGS: A PA view of the chest and oblique views of the right ribs were obtained. There is no prior exam for comparison. The cardiac and mediastinal silhouettes are within normal limits. The lungs are clear. There is no pneumothorax. Oblique views of the right ribs reveal no displaced rib fracture. IMPRESSION: No acute right rib fracture and no pneumothorax. Reviewed, Interpreted and Dictated by Sony Bravo MD Transcribed by Ping Wiley Authenticated and [facility]
== END 2025-01-18 23:59 | disposition home or self-care (01) ==
LOC: RAD 15:42
PROVIDERS: PCP Nurse Practitioner Family; Visit Provider Nurse Practitioner Family
DX: R07.89 Other chest pain (principal); R05.3 Chronic cough
CPT/HCPCS: 71101

== ENCOUNTER 2025-01-24 06:42 | Outpatient (CLI) | payer OTHER, SELFPAY ==
[2025-01-24 07:43] LABS: Basophils # 0.1 K/mm3 (0-0.2); Basophils % 0.6 % (0.1-2.0); Eosinophils # 0.2 K/mm3 (0.0-0.4); Eosinophils % 2.7 % (0.1-12.0); Lymphocytes # 2.6 K/mm3 (0.7-4.5); Lymphocytes % 32.4 % (10-50); Mean Corpuscular HGB Conc 32.5 g/dL (31.8-35.4); Mean Corpuscular Hemoglobin 27.9 pg (27.0-31.2); Mean Corpuscular Volume 85.8 fl (81-99); Mean Platelet Volume 10.5 fl (7.4-10.4); Monocytes # 0.4 K/mm3 (0.1-1.0); Monocytes % 5.2 % (1.7-9.3); Neutrophils # 4.8 K/mm3 (1.8-7.8); Neutrophils % 58.9 % (37.0-80.0); Platelet Count 309 K/mm3 (142-424); Red Blood Count 4.66 M/mm3 (4.20-5.40); Red Cell Distribution Width 13.1 % (11.5-17.5); White Blood Count 8.1 K/mm3 (4.8-10.8)
[2025-01-24 08:13] LABS: Hemoglobin A1C 5.4 % (4.0-6.0)
[2025-01-24 08:37] LABS: Albumin Level 4.3 g/dl (3.5-5.0); Chloride 106 mmol/L (98-107); Potassium 4.6 mmoL/L (3.5-5.1); Sodium 136 mmol/L (136-145)
[2025-01-24 08:39] LABS: Blood Urea Nitrogen 12 mg/dl (7-17); Estimated Glomerular Filt Rate 108 ml/min (>60); GFR (African American) 130 ML/MIN (>60)
[2025-01-24 08:40] LABS: Alanine Aminotransferase 27 U/L (12-78); Aspartate Amino Transferase 30 U/L (14-36); Calcium 9.4 mg/dl (8.4-10.2); Cholesterol 186 mg/dl (140-200); Glucose 86 mg/dl (74-100); Magnesium 1.9 mg/dl (1.6-2.3)
[2025-01-24 08:51] LABS: Direct LDL Cholesterol 108.09 mg/dL (100-129)
[2025-01-24 09:10] LABS: Thyroid Stimulating Hormone 1.41 uIU/mL (0.465-4.68)
[2025-01-24 10:42] LABS: Alkaline Phosphatase 70 U/L (38-126); Bilirubin,Total 0.7 mg/dl (0.2-1.3)
[2025-01-24 10:43] LABS: Albumin/Globulin Ratio 1.7 (1.1-1.8); Globulin 2.5 g/dL (1.3-3.2); Total Protein,Serum 6.8 g/dl (6.3-8.2); Triglycerides 168 mg/dl (30-150); VLDL Cholesterol 34 mg/dL (0-40)
[2025-01-24 10:50] LABS: Anion Gap 10.6 mEq/L (5-15); Carbon Dioxide 24 mmol/L (22.0-30.0)
[2025-01-24 10:55] LABS: Chol/HDL Ratio 3.4 (1-3.5); HDL Cholesterol 54 mg/dl (40-60)
== END 2025-01-24 23:59 | disposition home or self-care (01) ==
LOC: LAB 06:43
PROVIDERS: PCP Nurse Practitioner Family; Visit Provider Nurse Practitioner Family
DX: I10 Essential (primary) hypertension (principal); Z87.891 Personal history of nicotine dependence
CPT/HCPCS: 36415; 80053; 80061; 83036; 83735; 84443; 85025

== ENCOUNTER 2025-01-25 06:49 | Outpatient (CLI) | payer OTHER, SELFPAY ==
--- NOTE | 2025-01-25 06:57 | CT_ITS ---
FINAL REPORT TECHNIQUE: Axial CT with contrast with 3-D MIP reconstruction This study was performed with techniques to keep radiation doses as low as reasonably achievable, (ALARA). Individualized dose reduction techniques using automated exposure control or adjustment of mA and/or kV according to the patient''s size were employed. CLINICAL HISTORY: CHEST PAIN, chronic cough, pain rt side COMPARISON: none FINDINGS: Pulmonary vessels enhance in normal fashion without evidence of embolism. Thoracic aorta shows no dissection or aneurysm. There is a 3 mm nodule in the right mid lung well seen on image 34 of series 2. This is strongly favored to represent a granuloma given other calcified nodules. There is no significant pleural effusion. There is no significant pericardial effusion. No mediastinal or hilar adenopathy is present. IMPRESSION: No evidence of pulmonary embolism. No acute lung disease. Reviewed, Interpreted and Dictated by Thalia Ureña MD Transcribed by Ping Wiley Authenticated and [facility]
[2025-01-25] MEDS: SODIUM CHLORIDE 0.9% 10ML SYR (RAD ONLY) 10 ML IV (07:12)
[2025-01-25] MEDS: IOPAMIDOL-370 (76%);100ML BOTTLE 75 ML IV (07:14)
== END 2025-01-25 23:59 | disposition home or self-care (01) ==
LOC: RAD 06:51
PROVIDERS: PCP Internal Medicine Adolescent Medicine; Visit Provider Internal Medicine Adolescent Medicine
DX: R05.3 Chronic cough (principal); R07.89 Other chest pain
CPT/HCPCS: 71260; Q9967

== ENCOUNTER 2025-07-16 20:16 | Emergency (ER) | payer OTHER, SELFPAY ==
[2025-07-16] VITALS (7 sets, daily range): BP systolic 121–151; BP diastolic 65–85; PULSE 76–88; RESP 16; TEMP 36.6; O2SAT 96–99; BMI 34.1
--- NOTE | 2025-07-16 20:19 | HMH.EDGENADL ---
Discharge Plan Disposition Patient Disposition: Home, Self-Care Condition: Good Prescriptions Prescriptions: New ondansetron 4 mg tablet,disintegrating 4 mg PO Q8H PRN (Reason: nausea and vomiting) 5 Days Qty: 10 0RF dicyclomine 20 mg tablet 20 mg PO TID Qty: 20 0RF No Action Dupixent Pen 300 mg/2 mL pen injector 300 mg SQ WEEKLY ondansetron 4 mg Tablet,Disintegrating 4 mg PO Q8H PRN (Reason: Nausea) Qty: 12 0RF Referrals Follow up/Referrals: Joaquin Arriaga MD [Primary Care Provider, Internal Medicine] - See instructions Activity Restrictions/Add. Instructions Additional Instructions/Restrictions: Take the Zofran and Bentyl as needed for abdominal pain we will call you if your stool sample comes back for anything positive. Continue to stay well-hydrated with fluids. You may continue to have diarrhea for several days. Return to the emergency department if you develop any blood fevers or significant worsening abdominal pain. Clinical Impressions Clinical Impression: Diarrhea Stand Alone Forms Stand Alone Forms: Work/School Release Instructions Patient Instructions: DI for Acute Abdominal Pain Print Language Print Language: Scottish Discharge ED Provider: Stephanie Wells General Adult HPI General Chief complaint: Abdominal Pain Stated complaint: V/D,stomach pain Time Seen by Provider: 07/16/25 20:19 History of Present Illness HPI narrative: Patient is an otherwise healthy 45-year-old female who presented to the emergency department with abdominal pain nausea vomiting and diarrhea. Patient states that today she woke up and has had multiple episodes of loose diarrhea. Patient states that she has had 2 episodes of vomiting. Has not had any fevers. Patient states that her children were recently sick with norovirus last week. Patient states that she is having upper abdominal pain in her right upper quadrant in her epigastric region. Denies any lower abdominal pain. Patient states that she does not want to eat or drink because she feels that if she does this she will have diarrhea. Has not noticed any mucus or blood in her diarrhea. Patient has not had any recent travel. Patient denies any other significant medical problems. Patient denies any chest pain shortness of breath or other associated upper respiratory symptoms. Related Data Home Medications ?Medication ?Instructions ?Recorded ?Confirmed dupilumab 300 mg/2 mL subcutaneous 300 mg SQ WEEKLY 09/02/24 10/25/24 pen injector (Dupixent) Previous Rx's ?Medication ?Instructions ?Recorded ondansetron 4 mg disintegrating 4 mg PO Q8H PRN Nausea #12 tabs 10/25/24 tablet dicyclomine 20 mg tablet 20 mg PO TID #20 tabs 07/16/25 ondansetron 4 mg disintegrating 4 mg PO Q8H PRN nausea and 07/16/25 tablet vomiting 5 days #10 tabs Allergies Allergy/AdvReac Type Severity Reaction Status Date / Time prednisone Allergy Intermediate Verified 01/03/24 08:46 Penicillins (PENICILLINS) Allergy Unknown Verified 01/03/24 08:46 [facility] Disclaimer: The information contained in this section may have been updated after the patient was seen, as this information can be updated by other users. Medical History (Updated 07/16/25 @ 23:13 by Stephanie Wells DO) Hypokalemia Pancreatitis, acute Back pain Endometriosis determined by laparoscopy PCOS (polycystic ovarian syndrome) Surgical History (Updated 01/03/24 @ 08:47 by MARILYNN Roldan) History of laparoscopy History of endometrial ablation Family History (Updated 01/03/24 @ 09:00 by MARILYNN Roldan) Grandmother Cancer Family/Other Cancer Grandfather Cancer Social History Smoking Status: Never smoker second hand exposure: No alcohol intake: current alcohol intake frequency: holidays/special occasions only substance use type: denies use current occupational status: unemployed Travel in the last 8 weeks?: None household members: spouse and children housing: house 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 current occupational exposures/hazards: No Have you lived/traveled outside [place] in past 30 days?: No Contact w/someone who lives/traveled outside US past 30 days?: No Exposure to someone with infectious disease in past 14 days?: No Do you have a fever (greater than 100.4 F or 38 C)?: No Have you tested positive for COVID-19?: No Exposed to someone with COVID-19 in past 14 days?: No Do you have a sore throat?: No Do you have a cough?: No Do you have any weakness?: No Do you have any diarrhea?: No Are you experiencing any unusual bleeding?: No Do you have any muscle aches/pain?: No Do you have any abdominal pain?: No Are you experiencing loss of taste or smell?: No Other Medical History Have you received the Flu Vaccine for this season: No Have you received the Pneumonia Vaccine: No ROS Obtained: Yes All systems reviewed & no additional complaints except as documented and Yes Systems reviewed as appropriate & no additional complaints except as documented Physical Exam General General appearance: alert and in no apparent distress Head Head exam: atraumatic, normocephalic and normal inspection Eye Eye exam: Present normal appearance, PERRL and EOMI; Absent scleral icterus ENT ENT exam: Present normal exam and normal external ear exam Neck Neck exam: Present normal inspection and full ROM Chest Chest inspection: Present normal inspection and symmetric chest wall rise Respiratory Respiratory exam: Present normal lung sounds bilaterally; Absent respiratory distress or wheezes Cardiovascular Cardiovascular exam: Present regular rate, normal rhythm and normal heart sounds Abdominal Exam Abdominal exam: Present soft, distention and tenderness (epigastric and RUQ, no lower abdominal tenderness); Absent guarding or rebound Extremities Exam Extremities exam: Present normal inspection and full ROM Back Exam Back exam: Present normal inspection and full ROM Neurological Exam Neurological exam: Present alert and oriented X3 Psychiatric Psychiatric exam: Present normal affect and normal mood Skin Skin exam: Present warm and dry Medical Decision Making Medical Records Medical records reviewed: Yes I reviewed the patient's medical records. Screening: Per USPSTF and CDC recommendations, given the prevalence of disease in our region, it is our hospital?s policy to screen for HIV and viral Hepatitis for all patients aged 18 and over and those with ongoing risk factors. Jeison Inquiry Pt receiving controlled substance: No Vital Signs: 07/16/25 20:31 07/16/25 21:00 07/16/25 21:30 Temperature 97.8 F Temperature Source Oral Pulse Rate 82 83 Pulse Rate [Radial] 85 Respiratory Rate 16 Blood Pressure 140/66 137/85 Blood Pressure [Right Arm] 151/76 H Blood Pressure Mean [Right Arm] 101 Blood Pressure Position Blood Pressure Position [Right Arm] Sitting 02 Sat by Pulse Oximetry 96 99 99 Oxygen Delivery Method Room Air 07/16/25 21:42 07/16/25 22:01 07/16/25 22:30 Temperature Temperature Source Pulse Rate 88 79 77 Pulse Rate [Radial] Respiratory Rate Blood Pressure 147/83 H 129/65 125/71 Blood Pressure [Right Arm] Blood Pressure Mean [Right Arm] Blood Pressure Position Blood Pressure Position [Right Arm] 02 Sat by Pulse Oximetry 99 99 97 Oxygen Delivery Method 07/16/25 23:31 Temperature 97.8 F Temperature Source Oral Pulse Rate 76 Pulse Rate [Radial] Respiratory Rate 16 Blood Pressure 121/68 Blood Pressure [Right Arm] Blood Pressure Mean [Right Arm] Blood Pressure Position Sitting Blood Pressure Position [Right Arm] 02 Sat by Pulse Oximetry Oxygen Delivery Method Room Air Lab Data Lab results reviewed: Yes I reviewed the patient's lab results. Lab Results 07/16/25 20:28: WBC 11.5 H, RBC 5.01, Hgb 14.2, Hct 43.6, MCV 87.0, MCH 28.3, MCHC 32.6, RDW 13.0, Plt Count 286, MPV 10.6 H, Neut % (Auto) 86.7 H, Lymph % (Auto) 8.1 L, [place] % (Auto) 3.1, Eos % (Auto) 1.6, Baso % (Auto) 0.2, Neut # (Auto) 9.9 H, Lymph # (Auto) 0.9, [place] # (Auto) 0.4, Eos # (Auto) 0.2, Baso # (Auto) 0.0, VBG Lactic Acid 3.0 H, Sodium 137, Potassium 4.3, Chloride 105, Carbon Dioxide 23, Anion Gap 13.3, BUN 15, Creatinine 0.70, Estimated GFR 90, Est GFR ( Amer) 109, Glucose 117 H, Calcium 9.6, Total Bilirubin 0.7, AST 34, ALT 28, Alkaline Phosphatase 72, Troponin I < 0.01, Total Protein 8.5 H, Albumin 4.7, Globulin 3.8 H, Albumin/Globulin Ratio 1.2, Lipase 55, Serum HCG, Qual Negative, HCV Ab YOLANDE w/Rflx PCR Qn Negative, HIV Ag/Ab Combo Qual Negative 07/16/25 21:41: Urine Color Yellow, Urine Appearance Clear, Urine pH 6.5, Ur Specific Wat[place] <= 1.005, Urine Protein Negative, Urine Glucose (UA) Negative, Urine Ketones Negative, Urine Blood Trace-l, Urine Nitrate Negative, Urine Bilirubin Negative, Urine Urobilinogen 0.2, Ur Leukocyte Esterase Negative, Urine WBC 3-5, Ur Squamous Epith Cells 5-10, Urine Bacteria 1+ 07/16/25 22:43: Stl C. cayetanensis PCR Not detected, Stool Rotavirus (PCR) Not detected, Stl Adenov F 40/41 PCR Not detected, Stool Astrovirus (PCR) Not detected, Stool Campylobacter PCR Not detected, Stl C.difficile Tox PCR Not detected, Stool Cryptosporidium PCR Not detected, Stl E.coli Shiga Tox PCR Not detected, Stool E coli O157 PCR Not detected, Stl Enterotoxigenic E PCR Not detected, Stool EPEC (PCR) Detected A, Stool EAEC (PCR) Not detected, Stl E. histolytica PCR Not detected, Stool Giardia Lamblia PCR Not detected, Stool Salmonella PCR Not detected, Stool Sapovirus (PCR) Not detected, Stl P. shigelloides PCR Not detected, Stl Shigella/EIEC PCR Not detected, St Y.enterocolitica PCR Not detected, Stool Vibrio (PCR) Not detected, Stl Vibrio cholerae PCR Not detected, Stl Norovirus GI/GII PCR Detected A 07/16/25 20:28 07/16/25 20:28 Orders (Tests/Meds): ED MEDICATIONS Discontinued Medications Generic Name Dose Route Start Last Admin Trade Name Freq PRN Reason Stop Dose Admin Dicyclomine HCl 20 mg 07/16/25 20:55 07/16/25 21:22 Dicyclomine 10mg Capsule PO 07/16/25 20:56 20 mg ONCE ONE Administration Sodium Chloride 1,000 mls @ 999 mls/hr 07/16/25 20:31 07/16/25 22:06 Sod Chlor 0.9% 1000ml Bag IV 07/16/25 21:31 Infused .Q1H1M ONE Infusion Iopamidol 80 ml 07/16/25 21:10 07/16/25 21:12 Iopamidol-370 (76%);100ml Bottle IV 07/16/25 21:11 80 ml ONCE ONE Administration Ondansetron HCl 4 mg 07/16/25 23:17 07/16/25 23:29 Ondansetron 4mg/2ml Vial IV 07/16/25 23:18 4 mg ONCE ONE Administration Sodium Chloride 10 ml 07/16/25 21:10 07/16/25 21:13 Sodium Chloride 0.9% 10ml Syr (Rad Only) IV 08/15/25 21:09 10 ml NEEDED PRN Administration Maintain IV Site Sodium Chloride 50 ml 07/16/25 21:10 07/16/25 21:12 0.9 % Sodium Chloride 50 Ml Vial IV 07/16/25 21:11 50 ml ONCE ONE Administration ORDERS Category Date Time Status CT abdomen pelvis w con Stat Cat Scan 07/16/25 20:[address] angio chest PE protocol Stat Cat Scan 07/16/25 20:34 Completed POCUS Point of Care (ER Only) Stat Exams 07/16/25 20:36 Completed CBC w/Auto Diff [Complete Blood Count Auto Diff] Stat Lab 07/16/25 20:28 Completed CMP [Comprehensive Metabolic Panel] Stat Lab 07/16/25 20:28 Completed Diarrhea 23 Panel, PCR Stat Lab 07/16/25 22:43 Completed HCG Qualitative, Serum Stat Lab 07/16/25 20:28 Completed HIV Combo Stat Lab 07/16/25 20:28 Completed Hepatitis C Ab Qual. W/ RFX Stat Lab 07/16/25 20:28 Completed Lactate Venous Stat Lab 07/16/25 20:28 Completed Lipase Stat Lab 07/16/25 20:28 Completed Trop I [Troponin I] Stat Lab 07/16/25 20:28 Completed UA [Urinalysis and Microscopic] Stat Lab 07/16/25 21:41 Completed Urine Culture Stat Micro 07/16/25 21:43 Received Medical Decision Narrative: Patient is an otherwise healthy 45-year-old female who presented to the emergency department with abdominal pain and diarrhea. On arrival, patient was hemodynamically stable with unremarkable vital signs. Differential includes but not limited to: Infectious versus noninfectious diarrhea, pancreatitis, gallbladder disease, gastroenteritis, ACS/TX, pneumothorax, pleural effusion or other acute pathology. Patient's labs were reviewed and interpreted by myself: CBC showed mild leukocytosis of 11, hemoglobin stable. CMP otherwise unremarkable. Lactate elevated at 3. CMP unremarkable. UA showed no evidence of infection. Initial troponin less than 0.01. Second troponin not felt to be indicated, given symptoms since this morning and >6 hours. EKG was reviewed and interpreted by myself and showed normal sinus rhythm without acute ST or T wave changes concern for ischemia. CT chest and CT abdomen were reviewed and interpreted by myself and showed no acute emergent pathology however per radiology, there was some bowel wall thickening in the left upper quadrant as well as some lymph adenopathy in the abdomen and some bladder wall thickening. CT PE showed no acute pathology. At this time, patient was able to tolerate oral intake in the emergency department, patient's vital signs were otherwise unremarkable, patient was not tachycardic or hypotensive therefore I felt the patient was appropriate for discharge home. Patient was notified that she would be called when her stool sample came back and if it was positive. Patient was instructed to continue to stay well-hydrated at home. Was instructed to return to the emergency department if she developed fever or blood in her diarrhea. Patient was otherwise discharged home in stable condition. Patient's stool sample did come back positive for norovirus as well as EPEC. Patient was called and notified. No other acute interventions were required at this time. Critical Care Critical Care Time Critical Care Time: No
--- OUTSIDE RECORDS SUMMARY | 2025-07-16 20:24 | XMS_ITS | Encounter Summary ---
Author Organization [facility] Address [address] [place] [address] Care Team Providers Care Bee Breeder Name Role Phone Joaquin Arriaga MD Primary Care Provider [phone] Encounter Details Date Type Department Care Team (Late st Contact Info) Description 08/23/2023 Outside Procedure [address] [address] Provider, External Social History Tobacco Use Types Packs/Day Years Used Date Smoking Tobacco: Former Cigarettes Smokeless Tobacco: Never Alcohol Use Standard Drinks/Week Comments Not Currently 0 (1 standard drink = 0.6 oz pur e alcohol) PHQ-2 Answer Date Recorded Patient Health Questionnaire-2 Score 0 04/28/2023 PHQ-2A Answer Date Recorded Depression Risk 0 12/02/2022 Comments No Sex and Gender Information Value Date Recorded Sex Assigned at Not on file Legal Sex Female 8:02 PM EDT Gender Identity Not on file Sexual Orientation Not on file documented as of this encounter Plan of Treatment Not on file documented as of this encounter Procedures Procedure Name Priority Date/Time Associated Diagnosis Comments COLONOSCOPY 08/23/2023 9:31 AM EDT documented in this encounter Results * Colonoscopy (08/23/2023 9:31 AM EDT) Anatomical Region Laterality Modality Endoscopy 08/23/2023 8:59 AM EDT Impressions 08/23/2023 9:31 AM EDT Please see media tab for the result. Information added by interface. Narrative Procedure Note Tiffani Jaime, - 08/23/2023 IMPRESSION: Please see media tab for the result. Information added by interface. us External Provider GI PROCEDURE ORDERABLES Final Result documented in this encounter Visit Diagnoses Not on filedocumented in this encounter Additional Health Concerns Assessment Noted Time A fall risk assessment has been complete d for the patient 04/28/2023 2:56 PM EDT A Body Mass Index follow-up plan has been documented for the patient 04/29/2023 12:02 PM EDT documented as of this encounter Care Teams Bee Breeder Relationship Specialty Start Date End Date Joaquin Arriaga MD [address] [place] [address] [place] [address] PCP - General Internal Medicine 12/02/22 documented as of this encounter
--- OUTSIDE RECORDS SUMMARY | 2025-07-16 20:24 | XMS_ITS | Encounter Summary ---
Author Organization [facility] Address [address] [place] [address] Care Team Providers Care Tech Intern Name Role Phone Joaquin Arriaga MD Primary Care Provider [phone] Encounter Details Date Type Department Care Team (Late st Contact Info) Description 08/23/2023 Lab Requisition [facility] [address] [place] [address] Tiffani Jaime DO [address] [facility] [address] [place] [address] Encounter for screening for malignant neoplasm of colon Social History Tobacco Use Types Packs/Day Years [...] Procedure Name Priority Date/Time Associated Diagnosis Comments SURGICAL PATHOLOGY EXAM Routine 08/23/2023 Encounter for screening for malignant neoplasm of colon documented in this encounter Results * Surgical Pathology Exam (08/23/2023) Case Report Surgical Pathology Case: [id number] Authorizing Provider: Tiffani Jaime DO Collected: 08/23/2023 Ordering Location: [facility] Lab Received: 08/23/2023 1419 Pathologist: Azalia Whittaker MD Specimen: Rectum, Rectal Polyp 08/24/2023 2:28 PM EDT [facility] Final Diagnosis RECTUM, POLYP, BIOPSY: - HYPERPLASTIC POLYP. 08/24/2023 2:28 PM EDT [facility] at 1428 EDT Clinical Information Encounter for screening for malignant neoplasm of colon This is the patient's first colonoscopy Colonoscopic findings: One 2 mm polyp in the rectum, removed with a cold biopsy forceps. Resected and retrieved. 08/24/2023 2:28 PM EDT [facility] Gross Description A. RECTAL POLYP The specimen is received in formalin labeled rectal polyp , and consists of one moura/brown soft tissue fragment measuring 0.2 cm. Entirely submitted in cassette A1. [place] 08/24/2023 2:28 PM EDT [facility] Note: A resident was involved in the service. I attest I examined the relevant preparations for the specimens and confirmed the diagnosis or interpretation. 08/24/2023 2:28 PM EDT [facility] Tissue Rectum structure / Unknown 08/23/2023 08/23/2023 2:19 PM EDT us Tiffani Jaime DO LAB PATHOLOGY ORDERABLES Fin al Result Performing Organization Address City/State/[facility] Co de Phone Number [facility] [address] [place] [address] documented in this encounter Visit Diagnoses Diagnosis Encounter for screening for malignant neoplasm of colon documented in this encounter Additional Health Concerns Assessment Noted Time A fall risk assessment has been complete d for the patient 04/28/2023 2:56 PM EDT A Body Mass Index follow-up plan has been documented for the patient 04/29/2023 12:02 PM EDT documented as of this encounter Care Teams Tech Intern Relationship Specialty Start Date End Date Joaquin Arriaga MD [address] [place] [address] [place] [address] PCP - General Internal Medicine 12/02/22 documented as of this encounter
--- OUTSIDE RECORDS SUMMARY | 2025-07-16 20:24 | XMS_ITS | Clinical Summary ---
Author Organization [facility] Address [address] [place] [address] Care Team Providers Care Document Examiner Name Role Phone Joaquin Arriaga MD Primary Care Provider [phone] Allergies Active Allergy Reactions Criticality Noted Date Comments Ciprofloxacin Hives Medium 04/28/2023 Patient was given METRONIDAZOLE as well not sure which caused hives Metronidazole Hives Medium 04/28/2023 Pt was given Cipro as well not sure which medication caused hives Penicillins Other - please document in the comment field Low 12/02/2022 Prednisone Other - please document in the comment field Low 12/02/2022 Medications pantoprazole (Protonix) 40 MG EC tablet Take 40 mg by mouth 2 (two) times a day. Do not crush, chew, or split. Active busPIRone (Buspar) 10 MG tablet Take by mouth 3 (three) times a day. Active cetirizine (ZyrTEC) 10 MG tablet Take 10 mg by mouth 1 (one) time each day. Active Active Problems No known active problems Family History Medical History Relation Name Comments Diabetes Mother Lung disease Mother Lupus Mother Rheum arthritis Mother Thyroid disease Mother Relation Name Status Comments Mother Social History Tobacco Use Types Packs/Day Years Used Date Smoking Tobacco: Former Cigarettes Smokeless Tobacco: Never Tobacco Cessation:Counseling Given: Not Answered Alcohol Use Standard Drinks/Week Comments Not Currently [...] on file Sexual Orientation Not on file Last Filed Vital Signs Vital Sign Reading Time Taken Comments Blood Pressure 113/70 04/28/2023 3:04 PM EDT Pulse 72 04/28/2023 3:04 PM EDT Temperature 36.7 C (98 F) 04/28/2023 3:04 PM EDT Respiratory Rate - - Oxygen Saturation 97% 04/28/2023 3:04 PM EDT Inhaled Oxygen Concentration - - Weight 77.2 kg (170 lb 3.1 oz) 04/28/2023 3:04 P M EDT Height 165.1 cm (5' 5 ) 04/28/2023 2:55 PM EDT Body Mass Index 28.32 04/28/2023 2:55 PM EDT Plan of Treatment Health Maintenance Due Date Last Done Comments [facility]-HIV Screening 1978 [facility]-Hepatitis C Screening 1978 [facility]-/Child/Adol SDOH Screenings 1978 [facility]- SDOH Screenings 1996 [facility]-Adult SDOH Screenings 1996 [facility]-Hepatitis B Vaccines (1 of 3 - 19+ 3-dose series) 1997 [facility]-Pap Smear 1999 [facility]-Cervical Cancer Screening 2008 [facility]-HPV/Cotest 2008 CT Colonography 2023 FIT-DNA 2023 FIT 2023 FOBT 2023 Sigmoidoscopy 2023 [facility]-Depression Screening 04/28/2024 023, 12/02/2022 [id number] Vaccine (3 - 2024- season) 2025 09/29/2022, 07/27/2022 [facility]-Influenza Vaccine (#1) 2025 [facility]-Zoster Vaccines (1 of 2) 2028 [facility]-DTaP,Tdap,and Td Vaccine s (2 - Td or Tdap) 02/19/2031 02/19/2021 Colonoscopy 08/23/2033 08/23/2023, 08/23/2023, 07/19/2023 [facility]-Colorectal Cancer Screening 08/23/2033 [facility]-Obesity Intervention Completed 023, 12/02/2022 HPV Vaccines Aged Out No longer eligi ble based on patient's age to complete this topic [facility]-HIB Vaccines Aged Out No longer e ligible based on patient's age to complete this topic [facility]-Hepatitis A Vaccines Aged Out No longer eligible based on patient's age to complete this topic [facility]-IPV Vaccines Aged Out No longer e ligible based on patient's age to complete this topic [facility]-Pneumococcal Vaccine: Pediatrics (0 to 5 Years) and At-Risk Patients (6 to 49 Years) Aged Out No longer eligible b ased on patient's age to complete this topic [facility]-Rotavirus Vaccines Aged Out No lo nger eligible based on patient's age to complete this topic Procedures Procedure Name Priority Date/Time Associated Diagnosis Comments COLONOSCOPY 08/23/2023 9:31 AM EDT from Last 3 Months or Most Recently Relevant to Health Maintenance Results * Colonoscopy (08/23/2023 9:31 AM EDT) Anatomical Region Laterality Modality Endoscopy 08/23/2023 8:59 AM EDT Impressions 08/23/2023 9:31 AM EDT Please see media tab for the result. Information added by interface. Narrative Procedure Note Tiffani Jaime, DO - 08/23/2023 IMPRESSION: Please see media tab for the result. Information added by interface. External Provider GI PROCEDURE ORDERABLES Final Result from Last 3 Months or Most Recently Relevant to Health Maintenance Insurance [employer] [facility] MEDICAID Care Teams Document Examiner Relationship Specialty Start Date End Date Joaquin Arriaga MD [address] [place] [address] [place] [address] PCP - General Internal Medicine 12/02/22
--- OUTSIDE RECORDS SUMMARY | 2025-07-16 20:24 | XMS_ITS | Encounter Summary ---
Author Organization [facility] Address [address] [place] [address] Care Team Providers Care Wheat Shipper Name Role Phone Joaquin Arriaga MD Primary Care Provider [phone] Reason for Referral * Consultation (Routine) - Closed Specialty Diagnoses / Procedures Referred By Contac t Referred To Contact Gastroenterology Diagnoses Recurrent pancreatitis Joaquin Arriaga MD [address] [place] [address] [address] Phone: tel: fax: Referral ID Status Reason Start Date Expiration Date V isits Requested Visits Authorized [id number] Closed Specialty Services Required 11/11/2022 05/12/2024 1 1 Encounter Details Date Type Department Care Team (Latest Contact Info) Description 11/11/2022 Community [facility] [address] [place] [address] Joaquin Arriaga MD [address] [facility] [address] [place] [address] Recurrent pancreatitis (Primary Dx) Social History Tobacco Use Types Packs/Day Years Used Date Smoking Tobacco: Never Assessed Comments Unknown Sex and Gender Information Value Date Recorded Sex Assigned at Not on file Legal Sex Female 8:02 PM EDT Gender Identity Not on file Sexual Orientation Not on file documented as of this encounter Plan of Treatment Scheduled Referrals Name Type Priority Associated Diagnoses Order Schedule Ambulatory referral to Gastroenterology Outpatient Referral Routine Recurrent pancreatitis Expected: 11/11/2022 (Approximate), Expires: 05/11/2024 documented as of this encounter Visit Diagnoses Diagnosis Recurrent pancreatitis- Primary Chronic pancreatitis documented in this encounter Care Teams Wheat Shipper Relationship Specialty Start Date End Date Joaquin Arriaga MD [address] [place] [address] [place] [address] PCP - General Internal Medicine 12/02/22 documented as of this encounter
--- NOTE | 2025-07-16 20:31 | CT_ITS ---
PROCEDURE INFORMATION: Exam: CT Abdomen And Pelvis With Contrast Exam date and time: 07/16/2025 9:12 PM Age: 45 years old Clinical indication: Abdominal tenderness and nausea and vomiting TECHNIQUE: Imaging protocol: Computed tomography of the abdomen and pelvis with contrast. 3D rendering (Not supervised by radiologist): MIP and/or 3D reconstructed images were created by the technologist. Radiation optimization: All CT scans at this facility use at least one of these dose optimization techniques: automated exposure control; mA and/or kV adjustment per patient size (includes targeted exams where dose is matched to clinical indication); or iterative reconstruction. Contrast material: ISOVUE; Contrast volume: 80 ml; Contrast route: IV; COMPARISON: CT ABDOMEN PELVIS W CON 04/04/2023 10:53 AM FINDINGS: Lungs: Right lower lobe calcified nodule compatible with prior granulomatous process. Liver: There is diffuse hypoattenuation of the liver compatible with moderate hepatic steatosis. Gallbladder and biliary ducts: Normal. No calcified stones. No ductal dilation. Pancreas: Normal. No ductal dilation. Spleen: Normal. No splenomegaly. Adrenal glands: Normal. No mass. Kidneys and ureters: Normal. No hydronephrosis. Stomach and bowel: Unremarkable. No obstruction. No mucosal thickening. Appendix: No evidence of appendicitis. Intraperitoneal space: Unremarkable. No free air. No significant fluid collection. Vasculature: Unremarkable. No abdominal aortic aneurysm. Lymph nodes: Left upper quadrant small bowel thickening with multiple prominent mesenteric nodes measuring greater than 5 mm in short axis can be seen with mild infectious or inflammatory enteritis. Urinary bladder: Inflammatory stranding of the urinary bladder wall favors cystitis. Reproductive: Unremarkable as visualized. Bones/joints: Unremarkable. No acute fracture. Soft tissues: Normal. IMPRESSION: 1. Left upper quadrant small bowel thickening with multiple prominent mesenteric nodes measuring greater than 5 mm in short axis can be seen with mild infectious or inflammatory enteritis. 2. Inflammatory stranding of the urinary bladder wall favors cystitis.
--- NOTE | 2025-07-16 20:34 | CT_ITS ---
PROCEDURE INFORMATION: Exam: CTA Chest Without And With Contrast Exam date and time: 07/16/2025 9:12 PM Age: 45 years old Clinical indication: Pain; Chest pressure; Additional info: Right chest wall tenderness TECHNIQUE: Imaging protocol: Computed tomographic angiography of the chest without and with contrast. Exam focused on the arteries. 3D rendering (Not supervised by radiologist): MIP and/or 3D reconstructed images were created by the technologist. Radiation optimization: All CT scans at this facility use at least one of these dose optimization techniques: automated exposure control; mA and/or kV adjustment per patient size (includes targeted exams where dose is matched to clinical indication); or iterative reconstruction. Contrast material: ISOVUE; Contrast volume: 80 ml; Contrast route: INTRAVENOUS (IV); COMPARISON: CT CHEST W CON 01/25/2025 7:02 AM FINDINGS: Pulmonary arteries: No CT angiography evidence of pulmonary embolism. Aorta: Unremarkable. No aortic aneurysm. No aortic dissection. Lungs: Right upper lobe and right lower lobe calcified nodules compatible with granulomas. Pleural spaces: Unremarkable. No pneumothorax. No pleural effusion. Heart: Unremarkable. No cardiomegaly. No pericardial effusion. Lymph nodes: Unremarkable. No enlarged lymph nodes. Liver: There is diffuse hypoattenuation of the liver compatible with moderate hepatic steatosis. Bones/joints: Unremarkable. No acute fracture. Soft tissues: Unremarkable. IMPRESSION: No CT angiography evidence of pulmonary embolism.
[2025-07-16 20:41] LABS: Hematocrit 43.6 % (37.0-47.0); Hemoglobin 14.2 g/dL (12.2-16.2); Immature Granulocytes % 0.3 %; Mean Corpuscular HGB Conc 32.6 g/dL (31.8-35.4); Mean Corpuscular Hemoglobin 28.3 pg (27.0-31.2); Mean Corpuscular Volume 87.0 fl (81-99); Nucleated Red Blood Cells % 0 %; Platelet Count 286 K/mm3 (142-424); Red Blood Count 5.01 M/mm3 (4.20-5.40); Red Cell Distribution Width-SD 41.1 fL; White Blood Count 11.5 K/mm3 (4.8-10.8)
[2025-07-16] MEDS: 0.9 % SODIUM CHLORIDE 1000ML 1,000 ML 999 ML IV (20:42)
[2025-07-16 20:45] LABS: Albumin Level 4.7 g/dl (3.5-5.0); Chloride 105 mmol/L (98-107); Potassium 4.3 mmoL/L (3.5-5.1); Sodium 137 mmol/L (136-145)
[2025-07-16 20:47] LABS: Alanine Aminotransferase 28 U/L (12-78); Alkaline Phosphatase 72 U/L (38-126); Anion Gap 13.3 mEq/L (5-15); Aspartate Amino Transferase 34 U/L (14-36); Bilirubin,Total 0.7 mg/dl (0.2-1.3); Blood Urea Nitrogen 15 mg/dl (7-17); Carbon Dioxide 23 mmol/L (22.0-30.0); Creatinine,Serum 0.70 mg/dl (0.52-1.04); Estimated Glomerular Filt Rate 90 ml/min (>60); GFR (African American) 109 ML/MIN (>60)
[2025-07-16 20:48] LABS: Albumin/Globulin Ratio 1.2 (1.1-1.8); Calcium 9.6 mg/dl (8.4-10.2); Globulin 3.8 g/dL (1.3-3.2); Glucose 117 mg/dl (74-100); Lipase 55 U/L (23-300); Total Protein,Serum 8.5 g/dl (6.3-8.2)
--- NOTE | 2025-07-16 20:57 | PC.NURSE ---
Respiratory contacted and asked about running lactate that has been ordered.
[2025-07-16 21:04] LABS: HCG Qualitative, Serum Negative (Negative); Lactate Venous 3.0 mmol/L (0.4-2.0)
[2025-07-16] MEDS: 0.9 % SODIUM CHLORIDE 50 ML VIAL IV (21:12)
[2025-07-16] MEDS: IOPAMIDOL-370 (76%);100ML BOTTLE 80 ML IV (21:12)
[2025-07-16] MEDS: SODIUM CHLORIDE 0.9% 10ML SYR (RAD ONLY) 10 ML IV (21:13)
[2025-07-16 21:21] LABS: Troponin I < 0.01 ng/ml (0.00-0.034)
--- NOTE | 2025-07-16 21:31 | ECG_ITS ---
APPROVED REPORT Exam: Resting ECG HR:83 bpm ECG Measurements Heart Rate 83 AXES MI 160 P 68 QRSd 101 QRS 19 QT 393 T 29 QTc 433 Conclusion Normal sinus rhythm without acute ST or T wave changes concerning for ischemia Electronically signed by : Stephanie Wells, 07/18/2025 00:20:47
[2025-07-16 21:45] LABS: Microscopic, Urine URINE MICROSCOPIC (MICROSCOPIC)
[2025-07-16 21:49] LABS: Bilirubin,Urine Negative (Negative); Color,Urine YELLOW (Yellow); Glucose,Urine (UA) Negative (Negative); Ketones,Urine Negative (Negative); Leukocyte Esterase,Urine Negative (Negative); PH,Urine 6.5 (5.0-8.5); Protein,Urine Negative (Negative); Specific Gravity, Urine <= 1.005 (1.005-1.030); Urobilinogen,Urine 0.2 EU/dl (0.2)
[2025-07-16 22:24] LABS: Bacteria,Urine 1+ /lpf
[2025-07-16 22:35] LABS: Hepatitis C Ab Qual. W/ RFX NEGATIVE (Negative)
[2025-07-16 22:47] LABS: Adenovirus F 40/41, stool Not Detected (NotDetected); Clostridium Difficile A/B, PCR Not Detected (NotDetected); Cyclospora Cayetanesis Not Detected (NotDetected); Plesimonas Shigalloides, PCR Not Detected (NotDetected); Salmonella, PCR Not Detected (NotDetected); Shiga-like toxin E coli Not Detected (NotDetected); Shigella Enterovasive E coli Not Detected (NotDetected); Vibrio, PCR Not Detected (NotDetected); Yersinia Entercolitica, PCR Not Detected (NotDetected)
--- NOTE | 2025-07-16 23:08 | PC.NURSE ---
ED provider at the bedside updating pt on POC at this time.
[2025-07-16] MEDS: ONDANSETRON 4MG/2ML VIAL 4 MG IV (23:29)
--- NOTE | 2025-07-17 01:52 | PC.NURSE ---
notified Dr Cruz of Diarrhea Panel results.
--- NOTE | 2025-07-17 06:37 | PC.NURSE ---
Notified Pt of Diarrhea panel results.
== END 2025-07-16 23:32 | disposition home or self-care (01) ==
PROVIDERS: Emergency Provider Student in an Organized Health Care Education/Training Program; PCP Internal Medicine Adolescent Medicine
DX: R10.13 Epigastric pain (principal); A04.0 Enteropathogenic Escherichia coli infection; A08.11 Acute gastroenteropathy due to Norwalk agent; R19.7 Diarrhea, unspecified
CPT/HCPCS: 71275; 74177; 80053; 81001; 83605; 83690; 84484; 84703; 85025; 86803; 87086; 87389; 87507; 93005; 96361; 96374; 99285; J2405; J7030; Q9967

== ENCOUNTER 2025-07-31 12:53 | Outpatient (CLI) | payer OTHER, SELFPAY ==
--- OUTSIDE RECORDS SUMMARY | 2025-07-31 12:56 | XMS_ITS | Clinical Summary ---
Author Organization [facility] Address [address] [place] [address] Care Team Providers Care Editorial Cartoonist Name Role Phone Joaquin Arriaga MD Primary Care Provider [phone] Allergies Active Allergy Reactions Criticality Noted Date [...] [facility]-HIV Screening 1978 [facility]-Hepatitis C Screening 1978 [facility]-Infant/Child/Adol SDOH Screenings 1978 [facility]- SDOH Screenings 1996 [facility]-Adult SDOH Screenings 1996 [facility]-Hepatitis B Vaccines (1 of 3 - 19+ 3-dose series) 1997 [facility]-Pap Smear 1999 [facility]-Cervical Cancer Screening 2008 [facility]-HPV/Cotest 2008 CT Colonography 2023 FIT-DNA 2023 FIT 2023 FOBT 2023 Sigmoidoscopy 2023 [facility]-Depression Screening 04/28/2024 023, 12/02/2022 PEW-HSCUH-70 Vaccine (3 - 2024- season) 2025 09/29/2022, [...] Recently Relevant to Health Maintenance Insurance [employer] [facility] MEDICAID Care Teams Editorial Cartoonist Relationship Specialty Start Date End Date Joaquin Arriaga MD [address] [place] [address] [place] [address] PCP - General Internal Medicine 12/02/22
--- OUTSIDE RECORDS SUMMARY | 2025-07-31 12:56 | XMS_ITS | Encounter Summary ---
Author Organization [facility] Address [address] [place] [address] Care Team Providers Care Cook Italian Style Food Name Role Phone Joaquin Arriaga MD Primary Care Provider [phone] Reason for Referral * Consultation (Routine) - Closed Specialty Diagnoses / Procedures Referred By Contac t Referred To Contact Gastroenterology Diagnoses [place] [address] [place] [address] [place] [address] Phone: tel: fax: Referral ID Status Reason Start Date Expiration Date V isits Requested Visits Authorized [id number] Closed Specialty Services Required 11/11/2022 05/12/2024 1 1 Encounter Details Date Type Department Care Team (Latest Contact Info) Description 11/11/2022 Community [facility] Community Practice [address] [place] [address] Joaquin Arriaga MD [address] [facility] [address] [address] Recurrent pancreatitis (Primary Dx) Social History Tobacco [...] pancreatitis documented in this encounter Care Teams Cook Italian Style Food Relationship Specialty Start Date End Date Joaquin Arriaga MD [address] [place] [address] [place] [address] PCP - General Internal Medicine 12/02/22 documented as of this encounter
--- OUTSIDE RECORDS SUMMARY | 2025-07-31 12:56 | XMS_ITS | Encounter Summary ---
Author Organization [facility] Address [address] [place] [address] Care Team Providers Care Gasser Machine Operator Name Role Phone Joaquin Arriaga MD Primary Care Provider [phone] Encounter Details Date Type Department Care Team (Late st Contact Info) Description 08/23/2023 Lab Requisition [facility] [address] [place] [address] Tiffani Jaime DO [address] [facility] [address] [place] [address] Encounter for screening for malignant neoplasm of [...] Exam (08/23/2023) Case Report Surgical Pathology Case: [id number] Authorizing Provider: Tiffani Jaime DO Collected: 08/23/2023 Ordering Location: [facility] Lab Received: 08/23/2023 1419 Pathologist: Azalia Whittaker MD Specimen: Rectum, Rectal Polyp 08/24/2023 2:28 PM EDT [facility] Final Diagnosis RECTUM, POLYP, BIOPSY: - HYPERPLASTIC POLYP. 08/24/2023 2:28 PM EDT [facility] at 1428 EDT Clinical Information Encounter for screening for malignant neoplasm of colon This is the patient's first colonoscopy Colonoscopic findings: One 2 mm polyp in the rectum, removed with a cold biopsy forceps. Resected and retrieved. 08/24/2023 2:28 PM EDT [facility] Gross Description A. RECTAL POLYP The specimen is received in formalin labeled rectal polyp , and consists of one moura/brown soft tissue fragment measuring 0.2 cm. Entirely submitted in cassette A1. [place] 08/24/2023 2:28 PM EDT [facility] Note: A resident was involved in the service. I attest I examined the relevant preparations for the specimens and confirmed the diagnosis or interpretation. 08/24/2023 2:28 PM EDT [facility] Tissue Rectum structure / Unknown 08/23/2023 08/23/2023 2:19 PM EDT Tiffani Jaime DO LAB PATHOLOGY ORDERABLES Fin al Result Performing Organization Address City/State/[facility] Co de Phone Number [facility] [address] [place] [address] documented in this encounter Visit Diagnoses Diagnosis Encounter for screening for malignant neoplasm of colon documented in this encounter Additional Health Concerns Assessment Noted Time A fall risk assessment has been complete d for the patient 04/28/2023 2:56 PM EDT A Body Mass Index follow-up plan has been documented for the patient 04/29/2023 12:02 PM EDT documented as of this encounter Care Teams Gasser Machine Operator Relationship Specialty Start Date End Date Joaquin Arriaga MD [address] [place] [address] [place] [address] PCP - General Internal Medicine 12/02/22 documented as of this encounter
--- OUTSIDE RECORDS SUMMARY | 2025-07-31 12:56 | XMS_ITS | Encounter Summary ---
Author Organization [facility] Address [address] [place] [address] Care Team Providers Care Tube Bender Name Role Phone Joaquin Arriaga MD Primary Care Provider [phone] Encounter Details Date Type Department Care Team (Late st Contact Info) Description 08/23/2023 Outside Procedure [address] [address] Provider, External Social History Tobacco [...] Narrative Procedure Note Tiffani Jaime, DO - 10/16/2023 IMPRESSION: Please see media tab for the [...] documented as of this encounter Care Teams Tube Bender Relationship Specialty Start Date End Date Joaquin Arriaga MD [address] [place] [address] [place] [address] PCP - General Internal Medicine 12/02/22 documented as of this encounter
--- NOTE | 2025-07-31 14:00 | MM_ITS ---
PROCEDURE INFORMATION: Exam: MG Bilateral Screening 3D Mammography Exam date and time: 07/31/2025 1:58 PM Age: 45 years old Clinical indication: Screening examination TECHNIQUE: Imaging protocol: Bilateral Screening tomosynthesis and 2D mammography including computer-aided detection (CAD) when performed. COMPARISON: 1. MG MM DIG SCREENING MAMM BI W/CAD 12/30/2023 8:11 AM 2. MG MM DIG SCREENING MAMM BI W/CAD 07/24/2021 8:53 AM FINDINGS: MAMMOGRAPHY: Breast composition: There are scattered areas of fibroglandular density. Mass: None. Architectural distortion: None. Calcifications: No suspicious calcifications. Asymmetric density: None. Skin thickening: None. Axillary adenopathy: None. IMPRESSION: No mammographic evidence of malignancy. Annual screening is recommended unless otherwise clinically indicated. ASSESSMENT: BI-RADS Category 1: Negative.
--- NOTE | 2025-07-31 14:30 | US_ITS ---
PROCEDURE: US TRANSVAGINAL CLINICAL INDICATION: Pelvic pain COMPARISON: CT CT ABDOMEN PELVIS W CON from 05/06/[address] ABDOMEN PELVIS WO/W CON from 05/13/[address] ABDOMEN PELVIS W CON from 04/04/[address] ABDOMEN PELVIS W CON from 07/16/2025 FINDINGS: Transvaginal sonographic images of the pelvis were obtained. UTERUS: 9.8 cm x 5.8 cmx 5.0 cm anteverted with a combined endometrial thickness of 6.2mm. Fibroid 1. Measures 2.6 cm x 2.2 cm x 2.8 cm Fibroid 2. Measures 1.5 cm x 1.5 cm x 1.7 cm LEFT OVARY: Surgically absent RIGHT OVARY: 3.8 cmx 3.2cmx1.5cm with a volume of 9.4ml. Right ovary is seen and appears normal. There is decreased flow to the right ovary. There is no fluid in the cul-de-sac. IMPRESSION: 1. Anteverted, enlarged uterus. The endometrium appears normal and measures 6.2 mm. Patient has had a previous ablation but the endometrium is clearly seen at the fundus. There are 2 fibroids within the uterus measuring 2.8 cm and 1.7 cm. 2. The left ovary is surgically absent. The right ovary is seen and appears small. There is decreased flow to the right ovary likely as result of atrophy. 3. No fluid in the cul-de-sac. Dictated by: Amadou Odonnell MD 07/31/2025 17:45 Amadou Odonnell MD in OV 07/31/2025 17:45
== END 2025-07-31 23:59 | disposition home or self-care (01) ==
LOC: RAD 12:54
PROVIDERS: PCP Internal Medicine Adolescent Medicine; Visit Provider Obstetrics & Gynecology
DX: Z12.31 Encounter for screening mammogram for malignant neoplasm of breast (principal); D25.9 Leiomyoma of uterus, unspecified; N85.4 Malposition of uterus; N85.2 Hypertrophy of uterus; Z98.890 Other specified postprocedural states; Z90.721 Acquired absence of ovaries, unilateral; R92.323 Mammographic fibroglandular density, bilateral breasts
CPT/HCPCS: 76830; 77063; 77067

== ENCOUNTER 2025-10-18 16:22 | Outpatient (CLI) | payer OTHER, SELFPAY ==
[2025-10-18 21:09] LABS: Chloride 103 mmol/L (98-107); Sodium 138 mmol/L (136-145)
[2025-10-18 21:10] LABS: Potassium 4.7 mmoL/L (3.5-5.1)
[2025-10-18 21:12] LABS: Blood Urea Nitrogen 13 mg/dl (7-17); Creatinine,Serum 0.70 mg/dl (0.52-1.04); Estimated Glomerular Filt Rate 90 ml/min (>60); GFR (African American) 109 ML/MIN (>60)
[2025-10-18 21:13] LABS: Anion Gap 15.7 mEq/L (5-15); Calcium 9.4 mg/dl (8.4-10.2); Carbon Dioxide 24 mmol/L (22.0-30.0); Glucose 102 mg/dl (74-100)
== END 2025-10-18 23:59 | disposition home or self-care (01) ==
LOC: LAB.DROPOF 10-19 12:42
PROVIDERS: PCP Student in an Organized Health Care Education/Training Program; Visit Provider Student in an Organized Health Care Education/Training Program
DX: I10 Essential (primary) hypertension (principal)
CPT/HCPCS: 80048